=== PATIENT | female | born 1965 | race Hispanic/Latino ===

== ENCOUNTER 2019-01-19 22:04 | Emergency (ER) | payer OTHER ==
--- OUTSIDE RECORDS SUMMARY | 2019-01-19 22:11 | XMS REPORT | Continuity of Care Document ---
:1965 Author Organization Interface Problems Problem Status Onset Classification Date Comments Source Date Reported G89.4 Active 09/24/20 [facility] LBP/LT LEG/RA Active 06/27/20 S[facility] 18 [facility] Other spondylosis 12/08/19 03/12/2018 [facility] with 18 [employer] radiculopathy, cervical region CERVICAL SPINE Active 08/09/20 STENOSIS 17 [facility] ISCHEMIC STROKE Active 08/07/20 [facility] Spinal stenosis, 03/12/2018 [facility] cervical region [employer] Other specified 03/12/2018 [facility] postprocedural [employer] states Osteophyte, 03/12/2018 [facility] vertebrae [employer] Acute Resolved Problem 01/19/2019 [facility] hyperkalemia Neuro,[facility] OPID [employer], [facility] Acute UTI Resolved Problem 01/19/2019 [facility] OPID [employer], [facility] Group Back pain Active Problem 01/19/2019 [facility] Neuro,[facility] OPID [employer], [facility] Group Benign essential Active Problem 01/19/2019 [facility] HTN Neuro,[facility] OPID [employer], Medical Group Diabetes Resolved Problem 01/19/2019 [facility] Neuro,[facility] OPID [employer], Medical Group Impaired mobility Active Problem 01/19/2019 [facility] and ADLs Neuro,[facility] OPID [employer], Medical Group Hyperlipidemia Active Problem 01/19/2019 [facility] OPID [employer], Medical Group Hypertension Resolved Problem 01/19/2019 [facility] OPID [employer], [facility] Group Lower extremity Active Problem 01/19/2019 [facility] weakness Neuro,[facility] OPID [employer], [facility] Group Rheumatoid Active Problem 01/19/2019 [facility] arthritis Neuro,[facility] OPID [employer], Medical Group Simple obesity Active Problem 01/19/2019 [facility] OPID [employer], Medical Group Cervical stenosis Active Problem 01/19/2019 [facility] Neuro,[facility] OPID [employer], [facility] Group Accidental fall Active Problem 01/19/2019 [facility], [facility] Fluid retention Active Problem 01/19/2019 [facility], [facility] Chronic back pain Active Problem 01/19/2019 [facility], [facility] Chronic kidney Active Problem 01/19/2019 [facility] disease, stage 3 Neuro, Medical Group Chronic pain Resolved Problem 01/19/2019 [facility] Diabetic Active Problem 01/19/2019 [facility] retinopathy Neuro, Medical Group Left foot pain Active Problem 01/19/2019 [facility] Neuro, [facility] Left foot drop Active Problem 01/19/2019 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 Neck muscle spasm Active Problem 01/19/2019 [facility] Neuro, [facility] Group Peripheral Active Problem 01/19/2019 [facility] neuropathy Neuro, Medical Group Acute rhinitis Active Problem 01/19/2019 [facility] Type 2 diabetes Resolved Problem 01/19/2019 [facility] mellitus, [facility], controlled Medical Group Uncontrolled type Active Problem 01/19/2019 [facility] 2 diabetes with [facility], renal Medical manifestation Group Acute URI Active Problem 01/19/2019 Medical Group,[facility] er [facility] Rash Active Problem 01/19/2019 Medical Group,[facility] er Neuro Otitis media of Active Problem 01/19/2019 Medical right ear with Group,Misch rupture of er Neuro tympanic membrane Tinea pedis Active Problem 01/19/2019 Medical Group,Misch er Neuro ILLNESS, Active UNSPECIFIED [facility] STENOSIS OF Active UNSPECIFIED [facility] 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 Medication Details Route Status Patient Ordering Order Source Instructions Provider Date gabapentin 400 MG 400 mg=1 cap, Active 01/14/ Medical Oral Capsule PO, TID, # 120 2018 Group cap, 3 Refill(s), Pharmacy: [facility] [id number] DULoxetine 60 mg 60 mg, PO, Active 01/14[facility] Medical oral delayed Daily, # 90 2018 Group release capsule tab, 1 Refill(s), Pharmacy: [facility] [id number] pioglitazone 30 30 mg=1 tab, Active Medical mg oral tablet PO, Daily, # 90 2019 Group tab, 1 Refill(s), Pharmacy: [facility] 71069 Metformin 1,000 mg=2 tab, Active Medical hydrochloride 500 PO, BID, # 360 2019 Group MG Oral Tablet tab, 1 Refill(s), [id number] lisinopril 5 mg 5 mg, PO, Active Medical oral tablet Daily, # 90 2019 Group tab, 1 Refill(s), [facility] [id number] 3 ML Insulin 20 unit, SUB-Q, Active Medical Glargine 100 BID, # 5 2019 Group UNT/ML Prefilled pen(s), 3 Syringe [Lantus] Refill(s), [facility] [address] atorvastatin 40 40 mg=1 tab, Active Medical mg oral tablet PO, Bedtime, # 2019 Group 90 tab, 1 Refill(s), Pharmacy: [facility] [id number] amoxicillin 875 875 mg=1 tab, Active Medical mg oral tablet PO, BID, X 10 2019 Group day, # 20 tab, 0 Refill(s), [facility] Brompheniramine 5 mL, PO, TID, Active Medical Maleate 0.4 MG/ML PRN cough, X 8 2019 Group / day, # 120 mL, Dextromethorphan 0 Refill(s), Hydrobromide 2 Pharmacy: MG/ML / [facility] [id number] Hydrochloride 6 MG/ML Oral Solution [Bromfed DM] amoxicillin 875 875 mg=1 tab, Inactive Medical mg oral tablet PO, BID, X 10 2019 Group day, # 20 tab, 0 Refill(s) Cane 1 ea, MISC, Active Medical Daily, 4 PRONG 2019 Group CANE, # 1 ea, 0 Refill(s) Nystatin 100 1 appl, TOP, Active Medical UNT/MG Topical TID, X 7 day, # 2019 Group Powder 60 gm, 0 Refill(s), Pharmacy: [facility] [id number] Triamcinolone 1 appl, TOP, Active Medical Acetonide 1 MG/ML TID, PRN For 2019 Group Topical Cream rash, X 14 day, # 30 gm, 1 Refill(s), Pharmacy: [facility] 775[address] atorvastatin 40 40 mg=1 tab, Active Medical mg oral tablet PO, Bedtime, # 2019 Group 90 tab, 1 Refill(s), [facility] [address] predniSONE 5 mg 5 mg=1 tab, PO, Active Medical oral tablet Daily, Give 2019 Group with food., # 30 tab, 0 Refill(s), other Brompheniramine 5 mL, PO, TID, Active Medical Maleate 0.4 MG/ML PRN cough, X 8 2019 Group / day, # 120 mL, Dextromethorphan 1 Refill(s), Hydrobromide 2 Pharmacy: [facility]/ML / [facility] [id number] Hydrochloride 6 MG/ML Oral Solution [Bromfed DM] 3 ML Insulin 20 unit, SUB-Q, No Longer Medical Glargine 100 BID, # 5 Active 2018 Group UNT/ML Prefilled pen(s), 3 Syringe [Lantus] Refill(s), [facility] [id number] DULoxetine 60 mg 60 mg, PO, No Longer Medical oral delayed Daily, # 30 Active 2018 Group release capsule tab, 3 Refill(s), [facility] [id number] celecoxib 100 MG 100 mg=1 cap, Active Medical Oral Capsule PO, BID, # 60 2018 Group [Celebrex] cap, 0 Refill(s), [facility] [address] Metformin 500 mg, PO, No Longer Medical hydrochloride 500 BID, # 180 tab, Active 2018 Group MG Oral Tablet 1 Refill(s), [facility] [address] pioglitazone 15 15 mg, PO, No Longer Medical mg oral tablet Daily, # 90 Active 2018 Group tab, 1 Refill(s), [facility] [id number] lisinopril 5 mg 5 mg, PO, No Longer Medical oral tablet Daily, # 90 Active 2018 Group tab, 1 Refill(s), Pharmacy: [facility] [id number] Ketorolac 60 mg, Route: Inactive Medical IM, ONCE, 2018 Group Dosing Weight 81.364, kg, Start date: 07/02/18 7:45:00 CDT, Stop date: 07/02/18 7:45:00 CDT 3 ML Insulin 20 unit, SUB-Q, No Longer Medical Glargine 100 BID, # 5 Active 2018 Group UNT/ML Prefilled pen(s), 0 Syringe [Lantus] Refill(s), other tizanidine 4 mg 4 mg=1 cap, PO, Inactive 06/17/ Medical oral capsule Q8H, PRN for 2018 Group muscle spasms, # 90 cap, 0 Refill(s) 3 ML Insulin 20 unit, SUB-Q, Inactive Medical Glargine 100 0 Refill(s) 2018 Group UNT/ML Prefilled Syringe [Lantus] gabapentin 400 MG 400 mg=1 cap, Active 05/30/ [facility] Oral Capsule PO, TID, # 90 2018 Neuro cap, 4 Refill(s), Pharmacy: [facility] [id number] tramadol 100 mg 100 mg=1 tab, Active 05/30/ [facility] oral tablet, PO, Daily, # 30 2018 Neuro extended release tab, 4 Refill(s) tizanidine 4 mg 4 mg=1 tab, PO, Active 04/25/ [facility] oral tablet Q8H, # 50 tab, 2018 Neuro 0 Refill(s), Pharmacy: [facility] [id number] Methocarbamol 500 500 mg=1 tab, No Longer 04/24/ [facility] MG Oral Tablet PO, Q8H, PRN Active 2018 Neuro [Robaxin] Spasms, # 40 tab, 0 Refill(s), Pharmacy: [facility] [id number] Cyclobenzaprine 10 mg=1 tab, Active 10/17/ [facility] hydrochloride 10 PO, TID, PRN 2017 [facility] MG Oral Tablet for spasm, X 21 [Flexeril] day, # 63 tab, 0 Refill(s), Pharmacy: [facility] [id number] tramadol 50 mg=1 tab, Active hydrochloride 50 PO, Q8H, PRN 2017 [facility] MG Oral Tablet Pain Score 4-6, # 24 tab, 0 Refill(s) Ciprofloxacin 500 500 mg=1 tab, Active MG Oral Tablet PO, Q12H, X 7 2016 [facility] [Cipro] day, # 14 tab, 0 Refill(s), Pharmacy: [facility] sodium chloride 1,000 mL, Rate: No Longer 0.9% 1000 ml INJ 100 ml/hr, Active 2016 [facility] 1,000 mL Infuse over: 10 hr, Route: IV, Dosing Weight 80.9 kg, Total Volume: 1,000, Start date: 08/20/17 14:13:00 CDT, Duration: 30 day, Stop date: 09/19/17 14:12:00 [employer] Cipro 400 mg, 200 mL, No Longer Route: IVPB, Active 2016 [facility] Drug form: INJ, [id number], Dosing Weight 80.9, kg, Start date: 08/20/17 10:56:00 CDT, Duration: 5 day, Stop date: 08/24/17 22:56:00 CDT, ABX Indication: Urinary Tract InfectionNotes: Do not refrigerate Rocephin + sodium 1 gm, Route: No Longer chloride 0.9% INJ IVPB, [id number], Active 2016 [facility] 100 mL Dosing Weight 80.9, kg, Start date: 08/18/17 14:00:00 CDT, Duration: 5 day, Stop date: 08/22/17 14:00:00 CDT, ABX Indication: Urinary Tract InfectionNotes: (Same As: Rocephin). Use with 100 mL NS and infuse over 30 min MEDICATION WASTE Product Size: 1000 mg Product Wasted: ___ mg Rocephin 1 gm, Route: Inactive IVPB, [id number], 2016 [facility] Dosing Weight 80.9, kg, Start date: 08/18/17 11:02:00 CDT, Duration: 5 day, Stop date: 08/22/17 13:00:00 CDT, ABX Indication: Urinary Tract InfectionNotes: (Same As: Rocephin). Use with 100 mL NS and infuse over 30 min MEDICATION WASTE Product Size: 1000 mg Product Wasted: ___ mg Zofran 4 mg, 2 mL, No Longer Route: IVP, Active 2016 [facility] Drug form: INJ, Q8H, Dosing Weight 80.9, kg, PRN Nausea, Start date: 08/17/17 11:21:00 CDT, Duration: 30 day, Stop date: 09/16/17 11:20:00 CSTNotes: (Same as: Zofran) MEDICATION WASTE Product Size: 4 mg Product Wasted: ___ mg senna 8.6 mg oral 8.6 mg, 1 tab, No Longer tablet Route: PO, Drug Active 2016 [facility] Form: TAB, Dosing Weight 80.9, kg, BID, Start date: 08/16/17 17:00:00 CDT, Duration: 30 day, Stop date: 09/15/17 9:00:00 CSTNotes: (Same as: Senokot) Miralax 17 gm, 1 pkt, No Longer Route: PO, Drug Active 2016 [facility] form: PWDR, Daily, Dosing Weight 80.9, kg, Start date: 08/16/17 13:05:00 CDT, Duration: 30 day, Stop date: 09/15/17 9:00:00 CSTNotes: Dissolve in 8 oz of water or juice. (Same as: Miralax) aspirin 81 mg 81 mg, 1 tab, No Longer tablet, enteric Route: PO, Drug Active 2016 [facility] coated form: ECTAB, Daily, Dosing Weight 80.9, kg, Priority: NOW, Start date: 08/16/17 10:53:00 CDT, Duration: 30 day, Stop date: 09/15/17 9:00:00 CSTNotes: Do not crush or chew. (Same As: Ecotrin) Celebrex 100 mg, 1 cap, No Longer Route: PO, Drug Active 2016 [facility] form: CAP, Q12H, Dosing Weight 80.9, kg, Start date: 08/15/17 11:00:00 CDT, Duration: 7 day, Stop date: 08/22/17 9:00:00 CDTNotes: NSAID. Please check indication. Not for seizure. (Same As: CeleBREX ) senna 8.6 mg oral 8.6 mg, 1 tab, No Longer tablet Route: PO, Drug Active 2016 [facility] Form: TAB, Dosing Weight 80.9, kg, Daily, Start date: 08/15/17 9:00:00 CDT, Duration: 30 day, Stop date: 09/13/17 9:00:00 CSTNotes: (Same as: Senokot) Docusate Sodium 100 mg, 1 cap, No Longer 100 MG Oral Route: PO, Drug Active 2016 [facility] Capsule form: CAP, BID, Dosing Weight 80.9, kg, Start date: 08/14/17 17:00:00 CDT, Duration: 30 day, Stop date: 09/13/17 9:00:00 CSTNotes: (Same as: Colace) (Do Not Crush) Tramadol 100 mg, 2 tab, No Longer Route: PO, Drug Active 2016 [facility] form: TAB, Q6H, Dosing Weight 80.9, kg, Start date: 08/14/17 0:00:00 CDT, Stop date: 09/12/17 18:00:00 CSTNotes: Not to exceed 400mg/day. (Same As: Ultram) Robaxin 1,000 mg, 2 No Longer tab, Route: PO, Active 2016 [facility] Drug form: TAB, Q6H, Dosing Weight 80.9, kg, Start date: 08/14/17 0:00:00 CDT, Stop date: 09/12/17 18:00:00 CSTNotes: (Same as:Robaxin) Cefazolin 2 gm, 100 mL, Inactive Route: IVPB, 2016 [facility] Drug form: INJ, Q8H-01, Dosing Weight 80.9, kg, Start date: 08/14/17 0:00:00 CDT, Duration: 1 doses or times, Stop date: 08/14/17 0:00:00 CDT, ABX Indication: Surgical ProphylaxisNote s: Same as: Ancef Fentanyl 50 microgram, 1 No Longer mL, Route: IV, Active 2016 [facility] Drug form: INJ, Q15Min, Dosing Weight 80.9, kg, PRN Pain Score 7-10, Start date: 08/13/17 21:02:00 CDT, Duration: 2 doses or times, Stop date: Limited # of timesNotes: (Same as: Sublimaze) Preservative free. Albuterol 0.83 2.49 mg, 3 mL, No Longer MG/ML Inhalant Route: NEB, Active 2016 [facility] Solution Drug form: SOLN, PRN, Dosing Weight 80.9, kg, PRN Respiratory Protocol, Start date: 08/13/17 21:02:00 CDT, Duration: 30 day, Stop date: 09/12/17 20:01:00 CSTNotes: SEE RT DOCUMENTATION (Same as: Proventil) Promethazine 6.25 mg, Route: Inactive IVPB, ONCE, 2016 [facility] Dosing Weight 80.9, kg, PRN Nausea & Vomiting, Start date: 08/13/17 21:02:00 CDT Naloxone 0.1 mg, 0.25 No Longer mL, Route: Active 2016 [facility] SUB-Q, Drug form: INJ, Q6H, Dosing Weight 80.9, kg, PRN Itching, Start date: 08/13/17 21:02:00 CDT, Duration: 30 day, Stop date: 09/12/17 21:01:00 CSTNotes: Same as Narcan Ondansetron 4 mg, 2 mL, No Longer Route: IVP, Active 2016 [facility] Drug form: INJ, ONCE, Dosing Weight 80.9, kg, PRN Nausea & Vomiting, Start date: 08/13/17 21:02:00 CDTNotes: (Same as: Zofran) MEDICATION WASTE Product Size: 4 mg Product Wasted: ___ mg Meperidine 12.5 mg, 0.25 No Longer mL, Route: IVP, Active 2016 [facility] Drug form: INJ, Q30Min, Dosing Weight 80.9, kg, PRN Other -See Comment, For shivering, Start date: 08/13/17 21:02:00 CDT, Duration: 2 doses or times, Stop date: Limited # of timesNotes: (Same As: Demerol) Diphenhydramine 12.5 mg, 0.25 No Longer mL, Route: IVP, 2016 [facility] Drug form: INJ, Q6H, Dosing Weight 80.9, kg, PRN Itching, Start date: 08/13/17 21:02:00 CDT, Duration: 30 day, Stop date: 09/12/17 21:01:00 CSTNotes: (Same as: Benadryl) Glycopyrrolate 0.2 mg, 1 mL, No Longer Route: IVP, Active 2016 [facility] Drug form: INJ, Q5Min, Dosing Weight 80.9, kg, PRN Bradycardia, Start date: 08/13/17 21:02:00 CDT, Duration: 3 doses or times, Stop date: Limited # of timesNotes: (Same as: Nikolai) Flumazenil 0.2 mg, 2 mL, No Longer Route: IVP, 2016 [facility] Drug form: INJ, PRN, Dosing Weight 80.9, kg, PRN Benzodiazepine Reversal, Initial dose, Start date: 08/13/17 21:02:00 CDT, Duration: 30 day, Stop date: 09/12/17 20:01:00 CSTNotes: (Same as: Romazicon) Ephedrine 5 mg, 1 mL, No Longer Route: IVP, 2016 [facility] Drug form: INJ, Q5Min, Dosing Weight 80.9, kg, PRN Low Blood Pressure, Start date: 08/13/17 21:02:00 CDT, Duration: 30 day, Stop date: 09/12/17 20:01:00 CSTNotes: final concentration 5 mg/mL Labetalol 10 mg, 2 mL, No Longer Route: IVP, Active 2016 [facility] Drug form: INJ, Q5Min, Dosing Weight 80.9, kg, PRN Elevated BP, Start date: 08/13/17 21:02:00 CDT, Duration: 5 doses or times, Stop date: Limited # of timesNotes: (Same as: Normodyne, Trandate) Push over 2 minutes Give bolus over 2-3 minutes. Hydralazine 10 mg, 0.5 mL, No Longer Route: IVP, Active 2016 [facility] Drug form: INJ, Q20Min, Dosing Weight 80.9, kg, PRN Elevated BP, Start date: 08/13/17 21:02:00 CDT, Duration: 2 doses or times, Stop date: Limited # of timesNotes: (Same as: Apresoline) Push over 5 minutes Ketorolac 30 mg, 1 mL, No Longer Route: IVP, Active 2016 [facility] Drug form: INJ, ONCE, Dosing Weight 80.9, kg, Start date: 08/13/17 21:02:00 CDT, Duration: 1 doses or times, Stop date: 08/13/17 21:02:00 CDTNotes: (Same as:Toradol) IV bolus must be given >15 seconds. Give IM administration slowly and deeply into the muscle. Not for use > 4 days MEDICATION WASTE Product Size: 30 mg Product Wasted: ___ mg Acetaminophen 1,000 mg, Inactive Route: IVPB, 2016 [facility] Drug form: INJ, ONCE, Dosing Weight 80.9, kg, PRN Pain Score 1-3, Start date: 08/13/17 21:02:00 CDT, Duration: 1 doses or times, Stop date: Limited # of times Hydromorphone 0.5 mg, 0.5 mL, No Longer Route: IVP, Active 2016 [facility] Drug form: INJ, Q5Min, Dosing Weight 80.9, kg, PRN Pain Score 7-10, Start date: 08/13/17 21:02:00 CDT, Duration: 4 doses or times, Stop date: Limited # of times neostigmine Route: IV, Drug Inactive (ANES) form: INJ, 2016 [facility] ONCE, Stop date: 08/13/17 20:07:00 CDT glycopyrrolate Route: IV, Drug Inactive (ANES) form: INJ, 2016 [facility] ONCE, Stop date: 08/13/17 20:07:00 CDT ketOROLAC (ANES) IV, ONCE Inactive 2016 [facility] ondansetron Route: IV, Drug Inactive (ANES) form: INJ, 2016 [facility] ONCE, Stop date: 08/13/17 19:26:00 CDT dexamethasone Route: IV, Drug Inactive 08/13/ MH (ANES) form: INJ, 2016 [facility] , Stop date: 08/13/17 18:25:00 CDT rocuronium (ANES) Route: IV, Drug Inactive 08/13/ MH form: [id number], Stop date: 08/13/17 18:20:00 CDT ePHEDrine (ANES) Route: IV, Drug Inactive 08/13/ MH form: INJ, 2016, Stop date: 08/13/17 18:06:00 CDT propofol (ANES) Route: IV, Drug Inactive 08/13/ MH form: INJ, 2016, Stop date: 08/13/17 18:00:00 CDT phenylephrine Route: IV, Drug Inactive 08/13/ MH (ANES) form: INJ, 2016 [facility] , Stop date: 08/13/17 18:00:00 CDT acetaminophen Route: IV, Drug Inactive 08/13/ MH (ANES) (ANES) form: [id number] [facility] Start date: 08/13/17 17:53:00 CDT, Stop date: 08/13/17 18:53:00 CDT phenylephrine Route: IV, Drug Inactive 08/13/ MH (ANES) (ANES) form: 2016 [facility] Start date: 08/13/17 17:44:00 CDT, Stop date: 08/13/17 18:44:00 CDT ceFAZolin (ANES) Route: IV, Drug Inactive 08/13/ MH form: INJ, 2016, Stop date: 08/13/17 17:40:00 CDT fentaNYL (ANES) Route: IV, Drug Inactive 08/13/ MH form: [id number] [facility] , Stop date: 08/13/17 17:25:00 CDT midazolam (ANES) Route: IV, Drug Inactive 08/13/ MH form: SOLN, 2016, Stop date: 08/13/17 17:25:00 CDT Isolyte S (PH Route: IV, Inactive MH 7.4) 1000 mL Total Volume: 2016 [facility] (ANES) 1,000, Start date: 08/13/17 16:50:00 CDT, Stop date: 08/13/17 17:50:00 CDT D5W 1,000 mL 1,000 mL, Rate: No Longer 75 ml/hr, Active 2016 [facility] Infuse over: 13.3 hr, Route: IV, Dosing Weight 80.9 kg, Total Volume: 1,000, Start date: 08/13/17 11:59:00 CDT, Duration: 30 day, Stop date: 09/12/17 11:58:00 [employer] Insulin regular 6 unit, 0.06 No Longer mL, Route: Active 2016 [facility] SUB-Q, Drug form: SOLN, TID-Before Meals, Dosing Weight 80.9, kg, Start date: 08/12/17 16:30:00 CDT, Duration: 30 day, Stop date: 09/11/17 11:30:00 CSTNotes: (Same as: Humulin R) Roll in palms of hands gently; Do not shake vigorously. "single patient use only" (Restricted to patients requiring a dose > 60 units) WASTE: F/P - Black; E - [employer] Trash Bin Stable for 28 days at room temperature Expires in days from D ate sodium chloride 1,000 mL, Rate: No Longer 0.9% 1000 ml INJ 75 ml/hr, Active 2016 [facility] 1,000 mL Infuse over: 13.3 hr, Route: IV, Dosing Weight 80.9 kg, Total Volume: 1,000, Start date: 08/12/17 13:48:00 CDT, Duration: 30 day, Stop date: 09/11/17 13:47:00 [employer] Lisinopril 5 mg, 1 tab, No Longer Route: PO, Drug Active 2016 [facility] form: TAB, Daily, Dosing Weight 80.9, kg, Start date: 08/12/17 9:00:00 CDT, Duration: 30 day, Stop date: 09/10/17 9:00:00 CSTNotes: (Same as: Prinivil, Zestril) Thyroxine 50 microgram, 1 No Longer tab, Route: PO, Active 2016 [facility] Drug form: TAB, Q630AM, Dosing Weight 80.9, kg, Start date: 08/12/17 6:30:00 CDT, Duration: 30 day, Stop date: 09/10/17 6:30:00 CSTNotes: Take 1 hour before or 2 hours after meal; Enteral feeds may interefere with the absorption of this medication.(Sukhjinder e as:Levothroid, Synthroid) gabapentin 300 MG 300 mg, 1 cap, No Longer Oral Capsule Route: PO, Drug Active 2016 [facility] form: CAP, TID, Dosing Weight 80.9, kg, Start date: 08/11/17 17:00:00 CDT, Duration: 30 day, Stop date: 09/10/17 13:00:00 CSTNotes: (Same as: Neurontin) Flomax 0.4 mg, 1 cap, No Longer Route: PO, Drug Active 2016 [facility] form: CAP, Daily, Dosing Weight 80.9, kg, Priority: NOW, Start date: 08/11/17 12:27:00 CDT, Duration: 30 day, Stop date: 09/10/17 9:00:00 CSTNotes: (Same As: Flomax) "Do Not Crush" heparin sodium, 5,000 unit, 1 No Longer porcine 2500 mL, Route: Active 2016 [facility] UNT/ML Injectable SUB-Q, Drug Solution form: INJ, Q12H, Dosing Weight 80.9, kg, Start date: 08/10/17 21:00:00 CDT, Duration: 30 day, Stop date: 09/09/17 9:00:00 CSTNotes: porcine heparin Kayexalate 15 gm, 60 mL, Inactive Route: PO, Drug 2016 [facility] form: SUSP, ONCE, Dosing Weight 80.9, kg, Priority: NOW, Start date: 08/10/17 12:03:00 CDT, Stop date: 08/10/17 12:03:00 CDTNotes: (sodium polystyrene sulfonate 15 gm/60 ml WILLIE) Shake well before use. (Same as: Kayexalate, SPS) duloxetine 60 mg, 1 cap, No Longer Route: PO, Drug Active 2016 [facility] form: DRC, Daily, Dosing Weight 80.9, kg, Start date: 08/09/17 9:00:00 CDT, Duration: 30 day, Stop date: 09/07/17 9:00:00 CSTNotes: (Same as: Cymbalta) (Do Not Crush) gabapentin 300 mg, 1 cap, No Longer Route: PO, Drug Active 2016 [facility] form: CAP, Daily, Dosing Weight 80.9, kg, Start date: 08/09/17 9:00:00 CDT, Duration: 30 day, Stop date: 09/07/17 9:00:00 CSTNotes: (Same as: Neurontin) Levemir 25 unit, Route: No Longer SUB-Q, QAM Active 2016 [facility] (Insulin), Dosing Weight 80.9, kg, Start date: 08/09/17 7:30:00 CDT, Duration: 30 day, Stop date: 09/07/17 7:30:00 [employer] insulin glargine 28 unit, 0.28 No Longer mL, Route: Active 2016 [facility] SUB-Q, Drug form: INJ, QAM (Insulin), Start date: 08/09/17 7:30:00 CDT, Stop date: 09/07/17 7:30:00 CSTNotes: Same as Lantus Solostar PEN Do not hold insulin without contacting prescriber "single patient use only" WASTE: F/P - Black; E - [employer] Trash Bin Stable for 28 days at room temperature. Expires in days from D ate gabapentin 300 MG 300 mg, 1 cap, No Longer Oral Capsule Route: PO, Drug Active 2016 [facility] form: CAP, Q8H, Dosing Weight 80.9, kg, (CrCl > 60 ml/min), Start date: 08/09/17 0:00:00 CDT, Duration: 30 day, Stop date: 09/07/17 16:00:00 CSTNotes: (Same as: Neurontin) gabapentin 300 MG 300 mg=1 cap, Active Oral Capsule PO, TID, # 90 2016 [facility] cap, 0 Refill(s) levothyroxine 50 50 microgram=1 Active mcg (0.05 mg) tab, PO, Daily, 2016 [facility] oral tablet # 30 tab, 0 Refill(s) Metformin 500 mg, PO, Active BID, 0 2016 [facility] Refill(s) pentoxifylline 400 mg=1 tab, Active 400 mg oral PO, BID, 0 2016 [facility] tablet, extended Refill(s) release aspirin 81 mg 81 mg=1 tab, No Longer tablet, enteric PO, Daily, # 90 Active 2016 [facility] coated tab, 3 Refill(s) insulin glargine 24 unit, 0.24 No Longer 08/09/ mL, Route: Active 2016 [facility] SUB-Q, Drug form: INJ, Bedtime, Start date: 08/08/17 22:08:00 CDT, Stop date: 09/07/17 21:00:00 CSTNotes: Same as Lantus Solostar PEN Do not hold insulin without contacting prescriber "single patient use only" WASTE: F/P - Black; E - Municipal Trash Bin Stable for 28 days at room temperature. Expires in days from D ate Levemir 20 unit, Route: Inactive SUB-Q, Bedtime, 2016 [facility] Dosing Weight 80.9, kg, Priority: STAT, Start date: 08/08/17 21:57:00 CDT, Duration: 30 day, Stop date: 09/07/17 21:00:00 [employer] atorvastatin 80 mg, 4 tab, No Longer Route: PO, Drug Active 2016 [facility] form: TAB, Bedtime, kg, Start date: 08/08/17 21:00:00 CDT, Duration: 30 day, Stop date: 09/06/17 21:00:00 CSTNotes: (Same As: Lipitor) Insulin Lispro 4 unit, 0.04 No Longer mL, Route: Active 2016 [facility] SUB-Q, Drug form: SOLN, Bedtime, Dosing Weight 80.9, kg, PRN Blood Glucose Results, Start date: 08/08/17 20:01:00 CDT, Duration: 30 day, Stop date: 09/07/17 20:00:00 CSTNotes: Roll in palms of hands gently; Do not shake `vigorously. (Same as: Humalog ) "Single Patient Use Only " WASTE: F/P - Black; E - [employer] Trash Bin Stable for 28 days at room temperature. Expires in days from D ate Glucagon 1 mg, Route: No Longer IM, Drug form: Active 2017 [facility] PDR/INJ, PRN, Dosing Weight 80.9, kg, PRN Blood Glucose Results, Start date: 08/08/17 20:01:00 CDT, Duration: 30 day, Stop date: 09/07/17 19:00:00 [employer] Dextrose 50% 12.5 gm, 25 mL, No Longer Syringe Route: IVP, Active 2016 [facility] Drug Form: INJ, Dosing Weight 80.9, kg, PRN, PRN Blood Glucose Results, Start date: 08/08/17 20:01:00 CDT, Duration: 30 day, Stop date: 09/07/17 19:00:00 [employer] Acetaminophen 325 1 tab, Route: No Longer MG / Hydrocodone PO, Drug Form: Active 2016 [facility] Bitartrate 10 MG TAB, Dosing Oral Tablet Weight 80.9, [[place] 10/325] kg, Q4H, PRN Pain Score 4-6, Start date: 08/08/17 14:39:00 CDT, Duration: 30 day, Stop date: 09/07/17 14:38:00 CSTNotes: Do not exceed 4gm/day of acetaminophen. (Same as: [place] 325/10) Dilaudid 0.5 mg, 0.5 mL, No Longer Route: IVP, Active 2016 [facility] Drug form: INJ, Q4H, Dosing Weight 80.9, kg, PRN Pain Score 7-10, Start date: 08/08/17 14:39:00 CDT, Duration: 30 day, Stop date: 09/07/17 14:38:00 [employer] Omnipaque 350 100 mL, Route: Inactive injectable IVP, Drug Form: 2017 [facility] solution SOLN, Dosing Weight 80.9, kg, ONCALL, For CTA exam with GFR > 45 mL/min, STAT, Start date: 08/08/17 13:10:00 CDT, Duration: 1 doses or timesNotes: (same as:Omnipaque 350). WASTE: F/P - Black; E - [employer] Trash Bin Lovenox 30 mg, 0.3 mL, No Longer Route: SUB-Q, Active 2016 [facility] Drug form: INJ, [id number], Dosing Weight 80.9, kg, Start date: 08/08/17 12:00:00 CDT, Duration: 30 day, Stop date: 09/07/17 0:00:00 CSTNotes: (Same as: Lovenox) sodium chloride 1,000 mL, Rate: No Longer 0.9% 1000 ml INJ 125 ml/hr, Active 2016 [facility] 1,000 mL Infuse over: 8 hr, Route: IV, Dosing Weight 80.9 kg, Total Volume: 1,000, Start date: 08/08/17 9:39:00 CDT, Duration: 30 day, Stop date: 09/07/17 9:38:00 [employer] Saline Flush 0.9% 10 ml, Route: No Longer IVP, Drug Form: Active 2016 [facility] INJ, kg, Q12H, Start date: 08/08/17 9:00:00 CDT, Duration: 30 day, Stop date: 09/06/17 21:00:00 CSTNotes: (Same as: BD Posiflush) Sodium Chloride 1,000 mL, 1,000 Inactive 0.9% (Bolus) IV ml/hr, Infuse 2016 [facility] Over: 1 hr, Route: IV, 1,000, Drug form: INJ, ONCE, Priority: STAT, Dosing Weight 80.9 kg, Start date: 08/08/17 5:42:00 CDT, Duration: 1 doses or times, Stop date: 08/08/17 5:42:00 CDT Levemir 30, SUB-Q, QPM, Active 0 Refill(s) 2016 [facility] Aspirin 81 mg, PO, Active Daily, 0 2016 [facility] Refill(s) Metformin 500 mg, PO, No Longer Daily, 0 Active 2016 [facility] Refill(s) pioglitazone 15 mg, PO, Active Daily, 0 2016 [facility] Refill(s) Lisinopril 5 mg, PO, Active Daily, 0 2016 [facility] Refill(s) gabapentin 300 mg, PO, Inactive Daily, 0 2016 [facility] Refill(s) duloxetine 60 mg, PO, Active Daily, 0 2016 [facility] Refill(s) Sodium Chloride 1,000 mL, Inactive 0.9% (Bolus) IV Route: IV, 2016 [facility] ONCE, Dosing Weight 80.9 kg, Start date: 08/08/17 3:13:00 CDT, Stop date: 08/08/17 3:13:00 CDT aspirin 81 mg 81 mg, 1 tab, No Longer tablet, enteric Route: PO, Drug Active 2016 [facility] coated form: ECTAB, Daily, kg, Start date: 08/08/17 0:10:00 CDT, Duration: 30 day, Stop date: 09/06/17 9:00:00 CSTNotes: Do not crush or chew. (Same As: Ecotrin) Saline Flush 0.9% 10 ml, Route: No Longer IVP, Drug Form: Active 2016 [facility] INJ, kg, PRN, PRN Line Flush, Start date: 08/07/17 23:57:00 CDT, Duration: 30 day, Stop date: 09/06/17 22:56:00 CSTNotes: (Same as: BD Posiflush) Acetaminophen 650 mg, 2 tab, No Longer Route: PO, Drug Active 2016 [facility] form: TAB, Q4H, kg, PRN Pain 1-3/Temp > 99.5 F, Start date: 08/07/17 23:57:00 CDT, Duration: 30 day, Stop date: 09/06/17 23:56:00 CSTNotes: Do not exceed 4 gm/day. (Same as: Tylenol) Labetalol 10 mg, 2 mL, No Longer Route: IVP, Active 2016 [facility] Drug form: INJ, Q10Min, kg, PRN Hypertension, For SBP > 180 mmHg and/or DBP > 105 mmHg, Priority: Routine, Start date: 08/07/17 23:57:00 CDT, Duration: 30 day, Stop date: 09/06/17 22:56:00 CSTNotes: (Same as: Normodyne, Trandate) Push over 2 minutes Give bolus over 2-3 minutes. Allergies, Adverse Reactions, Alerts Substance Category Reaction Severity Reaction Status Date Comments Source type Reported Phenergan Assertion Drug [facility] Prevacid Assertion Drug [facility] Immunizations Immunization Date Given Site Status Last Updated Comments Source Results Order Name Results Value Reference Date Interpretation Comments Source Range Retroperit Retroperiton PROCEDURE: RENAL ULTRASOUND 08/12 - [facility] Complete - [facility] Complete US US INDICATION: Chronic kidney disease, stage III, moderate. Read by: Baldev Lezama MD Dictated Date/time: 08/12/18 15:16 Electronically Signed by: Baldev Lezama MD 08/12/18 15:19 FINAL REPORT COMPARISON: 08/08/2017 CTA abdomen TECHNIQUE: Sonographic evaluation of the kidneys and urinary bladder was performed. FINDINGS: Lobulated appearance of the kidneys as seen on the prior CT. KIDNEYS: The right kidney measures 10.3 cm in length. Normal contour and parenchymal echogenicity. There is no hydronephrosis, mass lesion, or perinephric fluid collection. The left kidney measures 11.1 cm in length. Normal contour and parenchymal echogenicity. There is no hydronephrosis, mass lesion, or perinephric fluid collection. BLADDER: Bladder is filled with fluid with bilateral ureteral jets appreciated. Mildly shadowing echogenic hidalgo of abdominal aorta may suggest calcified plaque as correlated with the prior CTA. Aortic bifurcation into the common iliac arteries is obscured. Intrahepatic inferior vena cava is partially visualized. IMPRESSION: Normal renal ultrasound. 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 Intravenous contrast: None. DLP 933 mGy-cm. This exam was performed according to our department dose optimization protocol, which includes automated exposure control, adjustment of the mA and/ or kV according to patient size and/or use of iterative reconstruction technique. COMPARISON: 08/08/2017 MRI, 08/16/2017 radiograph FINDINGS: Vertebrae: C3-C6 laminectomies have been performed, with the C3-C7 posterior element fixation hardware. Mild lucencies are present surrounding the bilateral C3 laminar screws, indicating loosening. C4 2.4 mm ossification of the posterior longitudinal ligament is present. C4-C5, C5-C6, C6-C7 posterior disc osteophyte complexes are again seen, measuring up to 2.7 mm. C6-C7 moderate central canal stenosis is present. C5-C6 and C6-C7 moderate to severe bilateral foraminal stenosis is present. C5-C7 anterior osteophytes are present. Other: Bilateral cervical carotid artery atherosclerotic calcifications are present. IMPRESSION: 1. Multilevel postsurgical changes as above. Lucency surrounding the bilateral C3 lamina anchoring screws. 2. Multilevel degenerative changes as above. CHEM PANEL eGFR 64 08/22 Result Comment: The eGFR is calculated using the CKD-EPI formula. In most young, healthy individuals the eGFR will be >90 mL/ min/1.73m2. The eGFR declines with age. An eGFR of 60-89 may be normal in mL/min/1. some populations, particularly the elderly, for whom the CKD-EPI formula has not been extensively validated. Use of the eGFR is not recommended in the following populations: [place] [id number] Individuals with unstable creatinine concentrations, including patients and those with serious co-morbid conditions. Patients with extremes in muscle mass or diet. The data above are obtained from the National Kidney Disease Education Program (NKDEP) which additionally recommends that when the eGFR is used in patients with extremes of body mass index for purposes of drug dosing, the eGFR should be multiplied by the estimated BMI. CHEM PANEL Sodium Lvl 136 meq/L 135 - 145 08/22 [facility] CHEM PANEL Creatinine 1.00 mg/dL 0.50 - 08/22 MH Lvl 1.40 /2016 [facility] CHEM PANEL Calcium Lvl 8.7 mg/dL 8.5 - 10.5 08/22 [facility] CHEM PANEL CO2 25 meq/L 24 - 32 08/22 [facility] CHEM PANEL Chloride Lvl 101 meq/L 95 - 109 08/22 [facility] CHEM PANEL Potassium 5.0 meq/L 3.5 - 5.1 08/22 Lvl [facility] CHEM PANEL BUN 19 mg/dL 7 - 22 08/22 [facility] CHEM PANEL Glucose Lvl 63 mg/dL 70 - 99 08/22 [facility] CHEM PANEL AGAP 15.0 meq/L 10.0 - 08/22 20.0 [facility] HEMATOLOGY Lymphocytes 2.4 K/CMM 1.0 - 5.5 08/22 MH # /2016 [facility] HEMATOLOGY Eosinophils 0.7 K/CMM 0.0 - 0.5 08/22 # [facility] HEMATOLOGY Monocytes # 1.6 K/CMM 0.0 - 0.8 08/22 [facility] HEMATOLOGY Monocytes 10.8 % 2.0 - 12.0 08/22 [facility] HEMATOLOGY Segs-Bands # 9.6 K/CMM 1.5 - 8.1 08/22 [facility] HEMATOLOGY Eosinophils 4.6 % 0.0 - 4.0 08/22 [facility] HEMATOLOGY Basophils 1.1 % 0.0 - 1.0 08/22 [facility] HEMATOLOGY Basophils # 0.2 K/CMM 0.0 - 0.2 08/22 [facility] HEMATOLOGY Lymphocytes 16.5 % 20.0 - 08/22 40.0 [facility] HEMATOLOGY Segs 67.0 % 45.0 - 08/22 MH 75.0 [facility] HEMATOLOGY Hct 26.5 % 36.0 - 08/22 48.0 [facility] HEMATOLOGY Hgb 8.5 g/dL 12.0 - 08/22 16.0 [facility] HEMATOLOGY RBC 2.96 M/CMM 4.20 - 08/22 MH 5.40 [facility] HEMATOLOGY MCV 89.8 fL 80.0 - 08/22 98.0 [facility] HEMATOLOGY Platelet 436 K/CMM 133 - 450 08/22 [facility] HEMATOLOGY MPV 9.3 fL 7.4 - 10.4 08/22 [facility] HEMATOLOGY RDW 13.5 % 11.5 - 08/22 14. [facility] HEMATOLOGY MCHC 32.0 g/dL 32.0 - 08/22 MH 36.0 [facility] HEMATOLOGY MCH 28.7 pg 27.0 - 08/22 MH 31.0 [facility] HEMATOLOGY WBC 14.4 K/CMM 3.7 - 10.4 08/22 [facility] CHEM PANEL eGFR 57 08/21 Result Comment: The eGFR is calculated using the CKD-EPI formula. In most young, healthy individuals the eGFR will be >90 mL/ min/1.73m2. The eGFR declines with age. An eGFR of 60-89 may be normal in mL/min/1.7 some populations, particularly the elderly, for whom the CKD-EPI formula has not been extensively validated. Use of the eGFR is not recommended in the following populations: [place] [id number] Individuals with unstable creatinine concentrations, including patients and those with serious co-morbid conditions. Patients with extremes in muscle mass or diet. The data above are obtained from the National Kidney Disease Education Program (NKDEP) which additionally recommends that when the eGFR is used in patients with extremes of body mass index for purposes of drug dosing, the eGFR should be multiplied by the estimated BMI. CHEM PANEL Glucose Lvl 79 mg/dL 70 - 99 08/21 [facility] CHEM PANEL BUN 22 mg/dL 7 - 22 08/21 [facility] CHEM PANEL Potassium 5.0 meq/L 3.5 - 5.1 08/21 MH Lvl [facility] CHEM PANEL Creatinine 1.10 mg/dL 0.50 - 08/21 MH Lvl 1.40 [facility] CHEM PANEL Sodium Lvl 131 meq/L 135 - 145 08/21 [facility] CHEM PANEL Chloride Lvl 98 meq/L 95 - 109 08/21 [facility] CHEM PANEL Calcium Lvl 8.4 mg/dL 8.5 - 10.5 08/21 [facility] CHEM PANEL AGAP 13.0 meq/L 10.0 - 08/21 MH 20.0 [facility] CHEM PANEL CO2 25 meq/L 24 - 32 08/21 [facility] HEMATOLOGY Platelet 360 K/CMM 133 - 450 08/21 [facility] HEMATOLOGY MPV 10.3 fL 7.4 - 10.4 08/21 [facility] HEMATOLOGY MCHC 32.9 g/dL 32.0 - 08/21 MH 36.0 [facility] HEMATOLOGY RDW 13.3 % 11.5 - 08/21 MH 14. [facility] HEMATOLOGY Hct 25.1 % 36.0 - 08/21 MH 48.0 [facility] HEMATOLOGY MCH 29.4 pg 27.0 - 08/21 MH 31.0 [facility] HEMATOLOGY MCV 89.6 fL 80.0 - 08/21 MH 98.0 [facility] HEMATOLOGY RBC 2.81 M/CMM 4.20 - 08/21 MH 5.40 /2016 [facility] HEMATOLOGY Hgb 8.3 g/dL 12.0 - 08/21 MH 16.0 [facility] HEMATOLOGY WBC 14.8 K/CMM 3.7 - 10.4 08/21 [facility] HEMATOLOGY Segs-Bands # 10.8 K/CMM 1.5 - 8.1 08/21 [facility] HEMATOLOGY Lymphocytes 1.8 K/CMM 1.0 - 5.5 08/21 MH # /2017 [facility] HEMATOLOGY Monocytes # 1.5 K/CMM 0.0 - 0.8 08/21 [facility] HEMATOLOGY Eosinophils 0.7 K/CMM 0.0 - 0.5 08/21 MH # [facility] HEMATOLOGY Eosinophils 4.9 % 0.0 - 4.0 08/21 [facility] HEMATOLOGY Monocytes 9.9 % 2.0 - 12.0 08/21 [facility] HEMATOLOGY Basophils 0.7 % 0.0 - 1.0 08/21 [facility] HEMATOLOGY RBC Morph Normal 08/21 [facility] (08/21/17 3:57 AM) HEMATOLOGY Segs 72.5 % 45.0 - 08/21 MH 75.0 [facility] HEMATOLOGY Plt Morph Normal 08/21 [facility] (08/21/17 3:57 AM) HEMATOLOGY Lymphocytes 12.0 % 20.0 - 08/21 40.0 [facility] HEMATOLOGY Basophils # 0.1 K/CMM 0.0 - 0.2 08/21 [facility] CHEM PANEL eGFR 52 08/20 Result Comment: The eGFR is calculated using the CKD-EPI formula. In most young, healthy individuals the eGFR will be >90 mL/ min/1.73m2. The eGFR declines with age. An eGFR of 60-89 may be normal in mL/min/1. some populations, particularly the elderly, for whom the CKD-EPI formula has not been extensively validated. Use of the eGFR is not recommended in the following populations: [facility] 3m2 Individuals with unstable creatinine concentrations, including patients and those with serious co-morbid conditions. Patients with extremes in muscle mass or diet. The data above are obtained from the National Kidney Disease Education Program (NKDEP) which additionally recommends that when the eGFR is used in patients with extremes of body mass index for purposes of drug dosing, the eGFR should be multiplied by the estimated BMI. CHEM PANEL Potassium 5.0 meq/L 3.5 - 5.1 08/20 [facility] Lvl /2016 [facility] CHEM PANEL Sodium Lvl 131 meq/L 135 - 145 08/20 [facility] CHEM PANEL CO2 26 meq/L 24 - 32 08/20 [facility] CHEM PANEL Calcium Lvl 8.5 mg/dL 8.5 - 10.5 08/20 [facility] CHEM PANEL Chloride Lvl 95 meq/L 95 - 109 08/20 [facility] CHEM PANEL Creatinine 1.20 mg/dL 0.50 - 08/20 MH Lvl 1.40 [facility] CHEM PANEL BUN 23 mg/dL 7 - 22 08/20 [facility] CHEM PANEL Glucose Lvl 132 mg/dL 70 - 99 08/20 [facility] CHEM PANEL AGAP 15.0 meq/L 10.0 - 08/20 20.0 [facility] HEMATOLOGY WBC 17.1 K/CMM 3.7 - 10.4 08/20 [facility] HEMATOLOGY Hgb 8.4 g/dL 12.0 - 08/20 16.0 [facility] HEMATOLOGY RBC 2.77 M/CMM 4.20 - 08/20 MH 5.40 [facility] HEMATOLOGY Hct 24.8 % 36.0 - 08/20 48.0 [facility] HEMATOLOGY MCV 89.4 fL 80.0 - 08/20 98.0 [facility] HEMATOLOGY MCH 30.3 pg 27.0 - 08/20 MH 31.0 [facility] MCHC 33.8 g/dL 32.0 - 08/20 36.0 [facility] HEMATOLOGY Platelet 354 K/CMM 133 - 450 08/20 [facility] HEMATOLOGY MPV 10.1 fL 7.4 - 10.4 08/20 [facility] HEMATOLOGY RDW 13.3 % 11.5 - 08/20 14. [facility] HEMATOLOGY Basophils # 0.1 K/CMM 0.0 - 0.2 08/20 [facility] Monocytes # 1.3 K/CMM 0.0 - 0.8 08/20 [facility] Eosinophils 0.6 K/CMM 0.0 - 0.5 08/20 [facility] HEMATOLOGY Segs-Bands # 13.0 K/CMM 1.5 - 8.1 08/20 [facility] HEMATOLOGY Eosinophils 3.7 % 0.0 - 4.0 08/20 [facility] HEMATOLOGY Lymphocytes 2.1 K/CMM 1.0 - 5.5 08/20 [facility] # /2017 [facility] HEMATOLOGY Basophils 0.3 % 0.0 - 1.0 08/20 [facility] HEMATOLOGY Monocytes 7.6 % 2.0 - 12.0 08/20 [facility] HEMATOLOGY Segs 76.1 % 45.0 - 08/20 75.0 [facility] HEMATOLOGY Lymphocytes 12.3 % 20.0 - 08/20 40.0 [facility] URINE AND UA null 0.1 - 1.0 08/18 STOOL Urobilinogen [facility] URINE AND UA Color Yellow 08/18 STOOL [facility] URINE AND UA RBC 1 /HPF 0 - 2 08/18 STOOL [facility] URINE AND UA Mucus Few /LPF None Seen 08/18 [facility] /LPF [facility] URINE AND UA Bacteria Occasional None Seen 08/18 [facility] /HPF /HPF [facility] URINE AND UA WBC 169 /HPF 0 - 5 08/18 STOOL [facility] URINE AND UA Blood Moderate Negative 08/18 [facility] *ABN* (08/18/17 6:02 AM) URINE AND UA Sq Epi Occasional Few /LPF 08/18 [facility]OOL /LPF [facility] URINE AND UA Nitrite Negative Negative 08/18 STOOL [facility] (08/18/17 6:02 AM) URINE AND UA Leuk Est Large Negative 08/18 [facility] *ABN* (08/18/17 6:02 AM) URINE AND UA Bili Negative Negative 08/18 STOOL [facility] *NA* (08/18/17 6:02 AM) URINE AND UA Turbidity Marked Clear 08/18 STOOL [facility] *ABN* (08/18/17 6:02 AM) URINE AND UA pH 5.0 5.0 - 8.0 08/18 STOOL [facility] URINE AND UA Protein 30 mg/dL Negative 08/18 STOOL mg/dL [facility] URINE AND UA Spec Grav 1.005 <=1.030 08/18 STOOL [facility] URINE AND UA Glucose Negative Negative 08/18 STOOL mg/dL mg/dL [facility] URINE AND UA Ketones Trace Negative 08/18 [facility] mg/dL mg/dL /2016 [facility] Spine Spine 4 VIEW CERVICAL SPINE 08/16 - cervical 2 cervical - [facility] or 3 view or 3 view DX DX HISTORY: Cervical pain. Read by: Jacek Lisa MD Dictated Date/time: 08/16/17 15:22 Electronically Signed by: Jacek Lisa MD 08/16/17 15:27 FINAL REPORT COMPARISON: No relevant priors available. Facet screws present C3-C2-C7 as well as posterior stabilization rods. Alignment of the cervical spine is normal there is narrowing of the C5-C6 and to lesser degree C6-C7 disc spaces. Prevertebral soft tissues normal. Vertebral body height normal and remainder of the disc spaces are maintained. Lung apices clear. Air densities are noted in the right neck. IMPRESSION: Postoperative changes of the cervical spine as noted above with associated degenerative disc changes. Air densities within the soft tissues of the neck as noted patient has had recent neck surgery this could explain this finding. END IMPRESSION SL: CL70-M BLOOD BANK Antibody Negative 08/13 RESULTS Scrn /2016 [facility] (08/13/17 5:56 AM) BLOOD BANK ABO/Rh A POS 08/13 RESULTS /2016 [facility] HEMATOLOGY PT 13.2 s 12.0 - 08/13 MH 14.7 [facility] HEMATOLOGY PTT 26.7 s 22.9 - 08/13 MH 35.8 /2016 [facility] HEMATOLOGY INR 0.98 0.85 - 08/13 MH 1. [facility] HEMATOLOGY PT 13.2 s 12.0 - 08/12 MH 14.7 /2016 [facility] HEMATOLOGY PTT 31.3 s 22.9 - 08/12 MH 35.8 /2017 [facility] HEMATOLOGY INR 0.98 0.85 - 08/12 MH 1. [facility] CHEM PANEL ALT 43 unit/L 0 - 65 08/10 [facility] CHEM PANEL Alk Phos 84 unit/L 39 - 136 08/10 /2016 [facility] CHEM PANEL Bili Total 0.5 mg/dL 0.2 - 1.3 08/10 [facility] CHEM PANEL AST 58 unit/L 0 - 37 08/10 [facility] CHEM PANEL Total 6.6 g/dL 6.4 - 8.4 08/10 [facility] CHEM PANEL Albumin Lvl 2.7 g/dL 3.5 - 5.0 08/10 [facility] CHEM PANEL Globulin 3.9 g/dL 2.7 - 4.2 08/10 [facility] CHEM PANEL B/C Ratio 25 6 - 25 08/10 [facility] CHEM PANEL A/G Ratio 0.7 0.7 - 1.6 08/10 [facility] HEMATOLOGY INR 0.95 0.85 - 08/10 MH 1.17 [facility] HEMATOLOGY PTT 26.4 s 22.9 - 08/10 MH 35.8 /2016 [facility] HEMATOLOGY PT 12.9 s 12.0 - 08/10 MH 14.7 [facility] SPECIAL Hgb A1C 6.8 % <=5.6 % 08/09 CHEMISTRY [facility] URINE AND UA null 0.1 - 1.0 08/09 STOOL Urobilinogen [facility] URINE AND UA Glucose 50 mg/dL 08/09 STOOL [facility] URINE AND UA WBC 1 /HPF 0 - 5 08/09 STOOL [facility] URINE AND UA RBC 2 /HPF 0 - 2 08/09 STOOL [facility] URINE AND UA Sq Epi Occasional Few /LPF 08/09 STOOL /LPF [facility] URINE AND UA Bacteria Few /HPF None Seen 08/09 STOOL /HPF [facility] URINE AND UA Color Ltyellow 08/09 STOOL [facility] URINE AND UA Mucus Few /LPF None Seen 08/09 STOOL /LPF [facility] URINE AND UA Leuk Est Negative Negative 08/09 STOOL [facility] (08/09/17 2:22 AM) URINE AND UA Bili Negative Negative 08/09 STOOL [facility] *NA* (08/09/17 2:22 AM) URINE AND UA Nitrite Negative Negative 08/09 STOOL [facility] (08/09/17 2:22 AM) URINE AND UA Blood Small Negative 08/09 STOOL [facility] *ABN* (08/09/17 2:22 AM) URINE AND UA Turbidity Clear Clear 08/09 STOOL [facility] (08/09/17 2:22 AM) URINE AND UA Ketones Negative Negative 08/09 [facility] mg/dL mg/dL [facility] URINE AND UA Spec Grav 1.019 <=1.030 08/09 STOOL [facility] URINE AND UA Protein 30 mg/dL Negative 08/09 [facility] mg/dL /2016 [facility] URINE AND UA pH 5.0 5.0 - 8.0 08/09 STOOL /2016 [facility] CARDIAC Troponin-I 0.03 ng/mL 0.00 - 08/08 ENZYMES 0.40 2017 [facility] CARDIAC CK MB Index 2.0 0.0 - 2.5 08/08 ENZYMES [facility] CARDIAC CK MB 2.4 ng/mL 0.5 - 3.6 08/08 ENZYMES /2016 [facility] CARDIAC Troponin-I 0.02 ng/mL 0.00 - 08/08 ENZYMES 0.40 [facility] CARDIAC Total CK 119 unit/L 12 - 191 08/08 ENZYMES [facility] Chest/Abd/ Chest/Abd/Pe CTA THORAX, ABDOMEN, PELVIS 08/08 Pelvis CTA lvis CTA /2016 - [facility] HISTORY: ; - rule out dissection, 95ml [id number] given, dlp 1023.8mGycm; bilateral lower extremity weakness Read by: Nathan Mccoy MD Dictated Date/time: 08/08/17 15:24 Electronically Signed by: Nathan Mccoy MD 08/08/17 15:33 FINAL REPORT TECHNIQUE: Thin collimation angiographic axial images of the chest and abdomen and pelvis from the base of the neck to below the hips with IV contrast. Coronal and sagittal reformatted images were utilized. 3-D reconstructions were obtained. COMPARISON: MRI entire spine dated 08/08/2017 CHEST: Thoracic aorta is normal. No thoracic aortic dissection, aneurysm, or atherosclerosis. Trace coronary calcification. Heart size normal. No pericardial effusion. No mediastinal mass, fluid collection, or adenopathy. Hypervascular nodule in the thyroid isthmus measures 2.0 cm. Lungs are sarah ar. No pleural effusion or pneumothorax. No acute osseous abnormality. ABDOMEN AND PELVIS: Mild/moderate calcified and soft atherosclerotic plaque of the abdominal aorta. No abdominal aortic dissection or aneurysm. No stenosis of the SMA, celiac axis, renal arteries. Bilateral iliac arterial vasculature demonstrates mild atherosclerotic calcification but no stenosis or dissection. The liver, spleen, pancreas, adrenal glands, and kidneys are unremarkable. Cholecystectomy is noted. Stomach and duodenum are normal. Normal urinary bladder. Probable hysterectomy. Normal small and larg e bowel. Appendix not visualized. No ascites, adenopathy, or pneumoperitoneum. No acute osseous abnormality. Postoperative changes in the lumbar spine. IMPRESSION: 1. No dissection of the thoracic or abdominal aorta. 2. Mild/moderate atherosclerosis of the abdominal aorta and iliac arteries without stenosis. 3. A 2 cm hypervascular thyroid nodule. Recommend nonemergent evaluation with thyroid ultrasound as per ACR criteria. 4. Cholecystectomy, probable hysterectomy, and postoperative lumbar spine. SL: [facility] CARDIAC CK MB Index 2.0 0.0 - 2.5 08/08 [facility] CARDIAC CK MB 2.8 ng/mL 0.5 - 3.6 08/08 [facility] CARDIAC Total CK 141 unit/L 12 - 191 08/08 [facility] CARDIAC Troponin-I 0.03 ng/mL 0.00 - 08/08 EN[facility] 0.40 /2017 [facility] Spine Spine entire MRI ENTIRE SPINE WITHOUT CONTRAST 08/08 - entire wo wo contrast - [facility] contrast MRI MRI HISTORY: Bilat LE weakness - Bilat LE weakness; Read by: Nathan Mccoy MD Dictated Date/time: 08/08/17 14:53 Electronically Signed by: Nathan Mccoy MD 08/08/17 15:14 FINAL REPORT COMPARISON: None available. TECHNIQUE: Multiplanar T1, T2, fluid-sensitive weighted MRI of the entire spine without contrast is performed on the 1.5 Yari magnet. CERVICAL: No fracture is seen. Vertebral body heights maintained. No bone marrow edema or aggressive osseous lesion. No discitis/osteomyelitis. Multilevel canal stenosis, greatest at C5/C6 where there is cord contusion or myelomalacia. C2/C3: No canal stenosis or neural foraminal narrowing. C3/C4: Mild broad-based posterior disc protrusion. No canal stenosis or neural foraminal narrowing. C4/C5: Moderate posterior central disc protrusion measuring 4-5 mm in depth. Mild ligament flavum thickening. Moderate to severe canal stenosis with deformity on the anterior spinal cord contour. No rig ht neural foraminal narrowing. Mild/moderate left neural foraminal narrowing. C5/C6: Bulky broad-based posterior spur and disc complex measuring 6 mm in depth with bilateral uncovertebral spurring. Severe canal stenosis with abnormal signal in the spinal cord compatible with cord contusion or myelomalacia. Severe right neural foraminal narrowing and moderate to severe left neural foraminal narrowing. C6/C7: Bulky broad-based posterior spur and disc complex measuring 5 mm in depth with bilateral uncovertebral spurring. Severe canal stenosis with deformity of the anterior spinal cord contour. Moderate to severe bilateral neural foraminal narrowing. C7/T1: No canal stenosis or neural foraminal narrowing. The visualized soft tissue structures of the neck are grossly normal. THORACIC: No fracture is seen. Vertebral body heights are maintained. No bone marrow edema or aggressive osseous lesion. No discitis/osteomyelitis. No significant disc degeneration the thoracic spine. No thoracic canal stenosis or neural foraminal narrowing. Thoracic spinal cord is normal in size, shape, and signal intensity. LUMBAR: No fracture is seen. Vertebral body heights are maintained. No bone marrow edema or aggressive osseous lesion. No discitis/osteomyelitis. Small benign hemangioma within the L3 vertebral body on the left. Changes of surgical posterior decompression at L5/S1. Right sided pedicle screws at L4, L5, and S1 with right-sided posterior spinal gurmeet. T12/L1: No canal stenosis or neural foraminal narrowing. L1/L2: No canal stenosis or neural foraminal narrowing. L2/L3: Mild diffuse disc bulge. Mild degenerative facet arthrosis. No canal stenosis or neural foraminal narrowing. L3/L4: Mild diffuse disc bulge. Moderate to severe hypertrophic facet arthrosis. Mild canal stenosis. L4/L5: Mild diffuse disc bulge. Moderate to severe hypertrophic facet arthrosis. No canal stenosis. Mild right neural foraminal narrowing. Moderate left neural foraminal narrowing. L5/S1: Changes of posterior surgical decompression. Moderate to severe bilateral hypertrophic facet arthrosis. No canal stenosis or neural foraminal narrowing. Visualized portion of the kidneys unremarkable. The visualized aorta is normal in caliber. IMPRESSION: 1. Severe canal stenosis at C5/C6 and C6/C7 and moderate to severe canal stenosis at C4/C5. 2. Abnormal signal in the spinal cord at C5/C6 compatible with cord contusion or myelomalacia. 3. Multilevel moderate to severe neural foraminal narrowing in the cervical spine. 4. No canal stenosis or neural foraminal narrowing in the thoracic spine. 5. Postoperative changes in the lower lumbar spine as described. 6. No high-grade canal stenosis or neural foraminal narrowing at the lumbar spine. Moderate left neural foraminal narrowing is noted at L4/L5. SL: AGINZEL-PC BACTERIAL MRSA by PCR Negative 08/08 - SEROLOGY [facility] (08/08/17 12:41 AM) CHEM PANEL Bili Total 0.6 mg/dL 0.2 - 1.3 08/08 [facility] CHEM PANEL Alk Phos 80 unit/L 39 - 136 08/08 [facility] CHEM PANEL AST 21 unit/L 0 - 37 08/08 [facility] CHEM PANEL Total 7.1 g/dL 6.4 - 8.4 08/08 Protein [facility] CHEM PANEL ALT 27 unit/L 0 - 65 08/08 [facility] CHEM PANEL Albumin Lvl 3.3 g/dL 3.5 - 5.0 08/08 [facility] CHEM PANEL A/G Ratio 0.9 0.7 - 1.6 08/08 [facility] CHEM PANEL B/C Ratio 26 6 - 25 08/08 [facility] CHEM PANEL Globulin 3.8 g/dL 2.7 - 4.2 08/08 [facility] CHEM PANEL Phosphorus 3.5 mg/dL 2.5 - 4.5 08/08 [facility] CHEM PANEL Magnesium 2.3 mg/dL 1.8 - 2.4 08/08 Lvl [facility] CHEM PANEL Bili Direct 0.1 mg/dL 0.0 - 0.3 08/08 [facility] IMMUNOLOGY RPR Non Reactive Non 08/08 Reactive /2016 [facility] (08/08/17 12:41 AM) IMMUNOLOGY Treponemal Reactive Non 08/08 Scr Reactive /2016 [facility] *ABN* (08/08/17 12:41 AM) IMMUNOLOGY T pallidum Reactive Non 08/08 Ab Reactive /2016 [facility] *ABN* (08/08/17 12:41 AM) LIPIDS CHD Risk 3.58 3.90 - 08/08 5.80 [facility] LIPIDS LDL 114 mg/dL <=99 mg/dL 08/08 (Calculated) [facility] LIPIDS VLDL 28 08/08 [facility] LIPIDS Chol 197 mg/dL <=199 08/08 mg/dL [facility] LIPIDS Trig 142 mg/dL <=149 08/08 mg/dL [facility] LIPIDS HDL 55 mg/dL >=61 mg/dL 08/08 [facility] PARATHYROI Ca Norm WB 1.10 1.05 - 08/08 D PROFILE mMol/L . [facility] PARATHYROI Ca Ion WB 1.14 1.05 - 08/08 D PROFILE mMol/L 1. [facility] SPECIAL Hgb A1C 6.7 % <=5.6 % 08/08 CHEMISTRY /2016 [facility] Vital Signs Vital Sign Value Date Comments Source BMI Calculated 36.92 01/14/2019 [facility] Weight 88.636 01/14/2019 [facility] Height 154.94 cm 01/14/2019 [facility] Temperature Oral (F) 98.6 F 01/14/2019 [facility] Heart Rate 85 01/14/2019 [facility] Systolic (mm Hg) 125 01/14/2019 [facility] Diastolic (mm Hg) 78 01/14/2019 [facility] BMI Calculated 35.6 11/28/2018 [facility] Weight 85.455 11/28/2018 [facility] Height 154.94 cm 11/28/2018 [facility] Temperature Oral (F) 97.7 F 11/28/2018 [facility] Heart Rate 87 11/28/2018 [facility] Systolic (mm Hg) 112 11/28/2018 [facility] Diastolic (mm Hg) 77 11/28/2018 [facility] BMI Calculated 33.89 07/02/2018 [facility] Weight 81.364 07/02/2018 [facility] Height 154.94 cm 07/02/2018 [facility] Systolic (mm Hg) 131 07/02/2018 [facility] Diastolic (mm Hg) 83 07/02/2018 [facility] Heart Rate 98 07/02/2018 [facility] Temperature Oral (F) 98.4 F 07/02/2018 [facility] Weight 82.273 06/17/2018 [facility] BMI Calculated 33.17 06/17/2018 [facility] Height 157.48 cm 06/17/2018 [facility] Systolic (mm Hg) 133 06/17/2018 [facility] Diastolic (mm Hg) 82 06/17/2018 [facility] Heart Rate 80 06/17/2018 [facility] Temperature Oral (F) 97.6 F 06/17/2018 [facility] BMI Calculated 30.2 05/30/2018 [facility] Weight 82.33 05/30/2018 [facility] Height 165.1 cm 05/30/2018 [facility] Systolic (mm Hg) 128 05/30/2018 [facility] Diastolic (mm Hg) 76 05/30/2018 [facility] Heart Rate 89 05/30/2018 [facility] BMI Calculated 32.84 04/24/2018 [facility] Weight 81.449 04/24/2018 [facility] Height 157.48 cm 04/24/2018 [facility] Temperature Oral (F) 97.9 F 04/24/2018 [facility] Heart Rate 94 04/24/2018 [facility] Systolic (mm Hg) 100 04/24/2018 [facility] Diastolic (mm Hg) 66 04/24/2018 [facility] BMI Calculated 30.8 10/17/2017 [facility] Weight 76.392 10/17/2017 [facility] Height 157.48 cm 10/17/2017 [facility] Temperature Oral (F) 97.5 F 10/17/2017 [facility] Heart Rate 99 10/17/2017 [facility] Systolic (mm Hg) 139 10/17/2017 [facility] Diastolic (mm Hg) 80 10/17/2017 [facility] BMI Calculated 31.57 09/19/2017 [facility] Weight 78.295 09/19/2017 [facility] Height 157.48 cm 09/19/2017 [facility] Heart Rate 103 09/19/2017 [facility] Temperature Oral (F) 98.2 F 09/19/2017 [facility] Systolic (mm Hg) 118 09/19/2017 [facility] Diastolic (mm Hg) 68 09/19/2017 [facility] Respitory Rate 18 08/22/2017 [facility] Temperature Oral (F) 97.5 F 08/22/2017 [facility] Heart Rate 82 08/22/2017 [facility] Systolic (mm Hg) 121 08/22/2017 [facility] Diastolic (mm Hg) 77 08/22/2017 [facility] Systolic (mm Hg) 137 08/22/2017 [facility] Diastolic (mm Hg) 72 08/22/2017 [facility] Heart Rate 71 08/22/2017 [facility] Respitory Rate 20 08/22/2017 [facility] Temperature Oral (F) 97.7 F 08/22/2017 [facility] Systolic (mm Hg) 143 08/22/2017 [facility] Diastolic (mm Hg) 81 08/22/2017 [facility] Respitory Rate 20 08/22/2017 [facility] Heart Rate 86 08/22/2017 [facility] Temperature Oral (F) 97.9 F 08/22/2017 [facility] BMI Calculated 32.62 08/08/2017 [facility] Weight 80.9 08/08/2017 [facility] Height 157.48 cm 08/08/2017 [facility] Encounters Location Location Encounter Encounter Reason Attending ADM DC Status Source Details Type Number For Provider Date Date Visit [id number] [facility] 08[facility]08 08/23 Jasen 3 [facility] Outpatient [id number] URBA[place] 09/03 [facility] 0 [facility] Outpatient [id number] [place] 09/19 [facility] 2 [facility] Outpatient [id number] 09/19 09/20 [facility] Outpatient [id number] URBANA 10/01 [facility] 1 [facility]en [facility] Phone [id number] 10/01 10/03 [facility] Message [facility] [place] [facility] Phone [id number] 10/01 10/03 [facility] Message [facility] e [employer] [facility] Ambulatory [id number] [place] 10/01 10/01 [facility] Pre-Reg 1 Neuro e [facility] Outpatient [id number] [place] 10/17 [facility] 3 [facility]patient [id number] [facility] 10/17 10/18 [facility] 3 [facility] [employer] [facility] Pre[facility]mit [id number] [facility] 11/09 11/09 Jasen 0 A[facility] ion MNA Phone [id number] 12/04 12/06 [facility] Message [facility] Outpt Diag [id number] Master 12/04 12/05 [facility] [employer] Outpatient [id number] JUANITO 12/05 [facility] 4 [facility] Ambulatory [id number] 12/05 12/05 [facility] Pre-Reg Neuro e [employer] MNA Phone [id number] 04/05 04/07 [facility] Message [facility] Outpatient [id number] [place] 04/24 [facility] 5 [facility] Outpatient [id number] 04/24 04/25 [facility] [employer] MNA Phone [id number] 04/30 05/02 [facility] Message [facility] e [employer] MNA Phone [id number] 05/03 05/05 [facility] Message Neuro e [facility] Phone [id number] 05/07 05/09 MH Primary [facility] MNA Phone [id number] 05/07 05/09 [facility] Message Neuro e [facility] Outpatient [id number] LD [place] [facility]/14 [facility] [id number] Kala 05/14 05/15 [facility] 6 An Neuro e [facility] MNA Phone [id number] 05/21 05/23 [facility] Message Neuro e [facility] MNA Phone [id number] 05/22 05/24 [facility] Message Neuro e [facility] Outpatient [id number] LD [place] 05/28 [facility] [id number] [place] 05/28 05/28 [facility] Pre-Reg 8 [place] [facility] a MNA Phone [id number] 05/29 05/31 [facility] Message Neuro e [facility] Outpatient [id number] LD [place] 05/30 Active [facility] Outpatient [id number] LD [place] 05/30 [facility] [id number] Saroj-Leticia 05/30 05/31 [facility] 0 [place] Neuro e [facility] MNA Ambulatory [id number] [place] 05/30 05/30 [facility] Pre-Reg 9 [place] [facility] a Outpatient [id number] ILENE 06/17 Active [facility] Outpatient [id number] Ilene 06/17 06/18 MH Primary 7 [facility] Phone [id number] 06/27 06/29 MH Primary Message [facility] MNA Phone [id number] 06/27 06/29 [facility] Message Neuro e [facility] MNA Phone [id number] 06/27 06/29 [facility] Message Neuro e [facility] Outpatient [id number] ILENE 07/02 Active [facility] 1 [facility] Outpatient [id number] Ilene 07/02 07/03 Primary 1 [facility] Outpatient [id number] ILENE 07/15 [facility] 2 [facility] Outpatient [id number] ILENE 10/16 Active [facility] 3 [facility] Outpatient [id number] ILENE11/28 Active [facility] 5 [facility] Outpatient [id number] Ilene 11/28 11/29 Primary 5 [facility] Outpatient [id number] ILENE01/14 Active [facility] 4 [facility] Outpatient [id number] Ilene 01/14 01/15 Primary 4 [facility] Outpatient [id number] ILENE 04/18 [facility] 6 [facility] Procedures Procedure Code Date Perfomer Comments Source Neck<sup>1</sup> [id number] Surgery on [facility] 7 neck Neck<sup>1</sup> [id number] Surgery on Medical 7 neck Group Appendectomy [id number] [facility] Cardiac [id number] [facility] catheterization Hysterectomy [id number] [facility] Appendectomy [id number] [facility] [id number] [facility] catheterization Hysterectomy [id number] [facility] Appendectomy [id number] [facility] [facility] Cardiac [id number] [facility] [place] catheterization [place] Hysterectomy [id number] [facility] [employer] Appendectomy [id number] [facility] Cardiac [id number] Medical catheterization Group Hysterectomy [id number] [facility]
--- OUTSIDE RECORDS SUMMARY | 2019-01-19 22:12 | XMS REPORT | Summary of Care ---
:1965 Author Organization [facility] Neuroscience [address], [address] [place] [address]- Encounter HQ Encntr_alias(FIN) [id number] Date(s): 05/29/18 - 05/30/[address], [address] [place] [address] [phone] Vital Signs No data available for this section Problem List Condition Effective Dates Status Health Status Informant Accidental fall(Confirmed) Active Acute hyperkalemia(Confirmed) Resolved Acute UTI(Confirmed) Resolved Back pain(Confirmed) Active Benign essential HTN(Confirmed) Active Fluid retention(Confirmed) Active Chronic back pain(Confirmed) Active Chronic kidney disease, stage Active 3(Confirmed) Chronic pain(Confirmed) Resolved Diabetes(Confirmed) Resolved Diabetic retinopathy(Confirmed) Active Impaired mobility and Active ADLs(Confirmed) Left foot pain(Confirmed) Active Left foot drop(Confirmed) Active Hx of fusion of cervical Active spine(Confirmed) Hyperlipidemia(Confirmed) Active Hypertension(Confirmed) Resolved Hypothyroid(Confirmed) Resolved Lower extremity weakness(Confirmed) Active Neck muscle spasm(Confirmed) Active Peripheral neuropathy(Confirmed) Active Rheumatoid arthritis(Confirmed) Active Acute rhinitis(Confirmed) Active Simple obesity(Confirmed) Active Cervical stenosis of Active spine(Confirmed) Type 2 diabetes mellitus, Resolved controlled(Confirmed) Uncontrolled type 2 diabetes with Active renal manifestation(Confirmed) Allergies, Adverse Reactions, Alerts Substance Reaction Severity Status Phenergan Active Prevacid Active Medications No data available for this section Results No data available for this section Immunizations No data available for this section Procedures Procedure Date Related Diagnosis Body Site Status Neck1 08/14/17 Completed Appendectomy Completed Cardiac catheterization Completed Hysterectomy Completed 1Surgery on neck Social History Social History Type Response Substance Abuse Use: None. Exercise Exercise duration: 0. Exercise frequency: 1-2 times/week. Exercise type: Walking. Alcohol Never Smoking Status Never smoker; Ready to change: No; Concerns about tobacco use in household: No; Exposure to Tobacco Smoke None; Cigarette Smoking Last 365 Days Unable to obtain; Reg Smoking Cessation Counseling No entered on: 11/28/18 Assessment and Plan No data available for this section
--- OUTSIDE RECORDS SUMMARY | 2019-01-19 22:12 | XMS REPORT | Summary of Care ---
:1965 Author Organization [facility] Neuroscience [facility] Address [address] [place] [address], [address] [place] [address]- Encounter HQ Nimar_tess(FIN) [id number] Date(s): 05/30/18 - 05/30/18 [facility] Neuroscience [address], [address] [place] [address] [phone] Discharge Disposition: Home or Self Care Attending Physician: Chang Gillespie MD Referring Physician: North Nichols MD Vital Signs Most recent to oldest [Reference Range]: 1 Height 165.1 cm (05/30/18 9:57 AM) Blood Pressure [90-140/60-90 mmHg] 128/76 mmHg (05/30/18 9:57 AM) Peripheral Pulse Rate [60-100 bpm] 89 bpm (05/30/18 9:57 AM) Weight 82.33 kg (05/30/18 9:57 AM) Body Mass Index 30.2 m2 (05/30/18 9:57 AM) Problem List Condition Effective Dates Status Health [...] Severity Status Phenergan Active Prevacid Active Medications gabapentin 400 mg oral capsule 400 mg=1 cap, PO, TID, # 90 cap, 4 Refill(s), Pharmacy: [id number] Start Date: 05/30/18 Status: Orderedtramadol 100 mg oral tablet, extended release 100 mg=1 tab, PO, Daily, # 30 tab, 4 Refill(s) Start Date: 05/30/18 Status: Ordered Results No data available for this section [...]
--- OUTSIDE RECORDS SUMMARY | 2019-01-19 22:12 | XMS REPORT | Summary of Care ---
:1965 Author Organization [facility] Neuroscience [facility] Address [address] [place] [address], [address] [place] [address]- Encounter HQ Encntr_aliwaqas(FIN) [id number] Date(s): 05/30/18 - 05/30/[address], [address] [place] [address] [phone] Attending Physician: Chang Gillespie MD Referring Physician: North Nichols MD Vital Signs No data available for this [...]
--- OUTSIDE RECORDS SUMMARY | 2019-01-19 22:13 | XMS REPORT | Summary of Care ---
:1965 Author Organization [facility] Primary Care [facility] Address [address], [address] [place] [address]- Encounter HQ Mason_tess(FIN) [id number] Date(s): 06/17/18 - 06/17/18 [facility] Care [address], [address] [place] [address]- [phone] Discharge Disposition: Home or Self Care Attending Physician: Ilene Arcos MD Vital Signs Most recent to oldest [Reference Range]: 1 Height 157.48 cm (06/17/18 10:48 AM) Temperature Oral [96.4-99.1 DegF] 97.6 DegF (06/17/18 10:48 AM) Blood Pressure [90-140/60-90 mmHg] 133/82 mmHg (06/17/18 10:48 AM) Peripheral Pulse Rate [60-100 bpm] 80 bpm (06/17/18 10:48 AM) Weight 82.273 kg (06/17/18 10:48 AM) Body Mass Index 33.17 m2 (06/17/18 10:48 AM) Problem List Condition Effective Dates Status [...] Severity Status Phenergan Active Prevacid Active Medications Lantus Solostar Pen 100 units/mL subcutaneous solution 20 unit, SUB-Q, 0 Refill(s) Start Date: 06/17/18 Stop Date: 06/17/18 Status: DiscontinuedLantus Solostar Pen 100 units/mL subcutaneous solution 20 unit, SUB-Q, BID, # 5 pen(s), 0 Refill(s), other Start Date: 06/17/18 Stop Date: 07/09/18 Status: Completedtizanidine 4 mg oral capsule 4 mg=1 cap, PO, Q8H, PRN for muscle spasms, # 90 cap, 0 Refill(s) Start Date: 06/17/18 Stop Date: 06/17/18 Status: Discontinued Results No data available for this section [...]
--- OUTSIDE RECORDS SUMMARY | 2019-01-19 22:14 | XMS REPORT | Summary of Care ---
:1965 Author Organization [facility] Primary Care [facility] Address [address], [address] [place] [address]- Encounter HQ Mason_tess(FIN) [id number] Date(s): 11/28/18 - 11/28/18 [facility] Primary Care [address], [address] [place] [address]- [phone] Discharge Disposition: Home or Self Care Attending Physician: Ilene Arcos MD Vital Signs Most recent to oldest [Reference Range]: 1 Height 154.94 cm (11/28/18 10:02 AM) Temperature Oral [96.4-99.1 DegF] 97.7 DegF (11/28/18 10:02 AM) Blood Pressure [90-140/60-90 mmHg] 112/77 mmHg (11/28/18 10:02 AM) Peripheral Pulse Rate [60-100 bpm] 87 bpm (11/28/18 10:02 AM) Weight 85.455 kg (11/28/18 10:02 AM) Body Mass Index 35.6 m2 (11/28/18 10:02 AM) Problem List Condition Effective Dates Status [...] Severity Status Phenergan Active Prevacid Active Medications atorvastatin 40 mg oral tablet 40 mg=1 tab, PO, Bedtime, # 90 tab, 1 Refill(s), Pharmacy: [id number] Start Date: 11/28/18 Status: OrderedBromfed DM oral syrup 5 mL, PO, TID, PRN cough, X 8 day, # 120 mL, 1 Refill(s), Pharmacy: [id number] Start Date: 11/28/18 Stop Date: 12/14/18 Status: OrderedpredniSONE 5 mg oral tablet 5 mg=1 tab, PO, Daily, Give with food., # 30 tab, 0 Refill(s), other Start Date: 11/28/18 Stop Date: 12/28/18 Status: Ordered Results No data available for [...]
--- OUTSIDE RECORDS SUMMARY | 2019-01-19 22:14 | XMS REPORT | Summary of Care ---
:1965 Author Organization [facility] Primary Care [facility] Address [address] [place] [address], [address] [place] [address]- Encounter HQ Joanne(FIN) [id number] Date(s): 01/14/19 - 01/14/19 [facility] [address] [place], [place] [id number]- [phone] Discharge Disposition: Home or Self Care Attending Physician: Ilene Arcos MD Vital Signs Most recent to oldest [Reference Range]: 1 Height 154.94 cm (01/14/19 8:59 AM) Temperature Oral [96.4-99.1 DegF] 98.6 DegF (01/14/19 8:59 AM) Blood Pressure [90-140/60-90 mmHg] 125/78 mmHg (01/14/19 8:59 AM) Peripheral Pulse Rate [60-100 bpm] 85 bpm (01/14/19 8:59 AM) Weight 88.636 kg (01/14/19 8:59 AM) Body Mass Index 36.92 m2 (01/14/19 8:59 AM) Problem List Condition Effective Dates Status Health Status Informant Accidental fall(Confirmed) Active Acute hyperkalemia(Confirmed) Resolved Acute URI(Confirmed) Active Acute UTI(Confirmed) Resolved Back pain(Confirmed) Active Benign essential HTN(Confirmed) Active Fluid retention(Confirmed) Active Chronic back pain(Confirmed) Active Chronic kidney disease, stage Active 3(Confirmed) Chronic pain(Confirmed) Resolved Diabetes(Confirmed) Resolved Diabetic retinopathy(Confirmed) Active Rash(Confirmed) Active Impaired mobility and Active ADLs(Confirmed) Left foot pain(Confirmed) Active Left foot drop(Confirmed) Active Hx of fusion of cervical Active spine(Confirmed) Hyperlipidemia(Confirmed) Active Hypertension(Confirmed) Resolved Hypothyroid(Confirmed) Resolved Otitis media of right ear with Active rupture of tympanic membrane(Confirmed) Lower extremity weakness(Confirmed) Active Neck muscle spasm(Confirmed) Active Peripheral neuropathy(Confirmed) Active Rheumatoid arthritis(Confirmed) Active Acute rhinitis(Confirmed) Active Simple obesity(Confirmed) Active Cervical stenosis of Active spine(Confirmed) Tinea pedis(Confirmed) Active Type 2 diabetes mellitus, Resolved controlled(Confirmed) Uncontrolled type 2 diabetes with Active renal manifestation(Confirmed) Allergies, Adverse Reactions, Alerts Substance Reaction Severity Status Phenergan Active Prevacid Active Medications amoxicillin 875 mg oral tablet 875 mg=1 tab, PO, BID, X 10 day, # 20 tab, 0 Refill(s) Start Date: 01/14/19 Stop Date: 01/14/19 Status: Discontinuedamoxicillin 875 mg oral tablet 875 mg=1 tab, PO, BID, X 10 day, # 20 tab, 0 Refill(s), Pharmacy: [facility] [id number] Start Date: 01/14/19 Stop Date: 01/24/19 Status: Orderedatorvastatin 40 mg oral tablet 40 mg=1 tab, PO, Bedtime, # 90 tab, 1 Refill(s), Pharmacy: [facility] [id number] Start Date: 01/14/19 Status: OrderedBromfed DM oral syrup 5 mL, PO, TID, PRN cough, X 8 day, # 120 mL, 0 Refill(s), Pharmacy: [facility] [id number] Start Date: 01/14/19 Stop Date: 01/22/19 Status: OrderedCane 1 ea, MISC, Daily, 4 PRONG CANE, # 1 ea, 0 Refill(s) Start Date: 01/14/19 Status: OrderedDULoxetine 60 mg oral delayed release capsule 60 mg, PO, Daily, # 90 tab, 1 Refill(s), Pharmacy: [facility] [id number] Start Date: 01/14/19 Status: Orderedgabapentin 400 mg oral capsule 400 mg=1 cap, PO, TID, # 120 cap, 3 Refill(s), Pharmacy: [facility] [id number] Start Date: 01/14/19 Status: OrderedLantus Solostar Pen 100 units/mL subcutaneous solution 20 unit, SUB-Q, BID, # 5 pen(s), 3 Refill(s), Pharmacy: [facility] [id number] Start Date: 01/14/19 Status: Orderedlisinopril 5 mg oral tablet 5 mg, PO, Daily, # 90 tab, 1 Refill(s), Pharmacy: [facility] [id number] Start Date: 01/14/19 Status: OrderedmetFORMIN 500 mg oral tablet 1,000 mg=2 tab, PO, BID, # 360 tab, 1 Refill(s), Pharmacy: [facility] [id number] Start Date: 01/14/19 Status: Orderednystatin topical 100,000 units/g powder 1 appl, TOP, TID, X 7 day, # 60 gm, 0 Refill(s), Pharmacy: [facility] [id number] Start Date: 01/14/19 Stop Date: 01/21/19 Status: Orderedpioglitazone 30 mg oral tablet 30 mg=1 tab, PO, Daily, # 90 tab, 1 Refill(s), Pharmacy: [facility] [id number] Start Date: 01/14/19 Status: Orderedtriamcinolone topical 0.1% cream 1 appl, TOP, TID, PRN For rash, X 14 day, # 30 gm, 1 Refill(s), Pharmacy: [facility] [id number] Start Date: 01/14/19 Stop Date: 02/11/19 Status: Ordered Results No data available for [...] Reg Smoking Cessation Counseling No entered on: 01/14/19 Assessment and Plan No data available for this section
--- OUTSIDE RECORDS SUMMARY | 2019-01-19 22:14 | XMS REPORT | Summary of Care ---
:1965 Author Organization [facility] Address [address] [place] [address], [address] [place] [address]- Encounter HQ Encntr_aliwaqas(FIN) [id number] Date(s): 06/27/18 - 06/28/[address] [place], [place] [address]- [phone] Vital Signs No data available for this [...]
--- OUTSIDE RECORDS SUMMARY | 2019-01-19 22:14 | XMS REPORT | Summary of Care ---
:1965 Author Organization [facility] Address [address] [place] [address], [address] [place] [address]- Encounter HQ Encntr_aliwaqas(FIN) [id number] Date(s): 06/27/18 - 06/28/[address] [place], [place] [id number]- [phone] Vital Signs No data available for this [...]
--- OUTSIDE RECORDS SUMMARY | 2019-01-19 22:14 | XMS REPORT | Summary of Care ---
:[address] [facility] Primary Care [facility] Address [address], [address] [place] [address]- Encounter HQ Mason_tess(FIN) [id number] Date(s): 06/27/18 - 06/28/18 [facility] [address] [place] [address] [address] [place], [place] [address]- [phone] Vital Signs No data available for this [...]
--- OUTSIDE RECORDS SUMMARY | 2019-01-19 22:15 | XMS REPORT | Summary of Care ---
:1965 Author Organization [facility] Address [address] [place] [address], [address] [place] [address]- Encounter HQ Encntr_alias(FIN) [id number] Date(s): 05/22/18 - 05/23/[address], [address] [place] [address] [phone] Vital Signs No data available for this [...]
--- OUTSIDE RECORDS SUMMARY | 2019-01-19 22:15 | XMS REPORT | Summary of Care ---
:1965 Author Organization [facility] Address [address] [place] [address], [address] [place] [address]- Encounter HQ Encntr_aliwaqas(FIN) [id number] Date(s): 05/28/18 - 05/28/[address], [address] [place] [address] [phone] Attending Physician: Chang Gillespie MD Referring Physician: [...]
--- OUTSIDE RECORDS SUMMARY | 2019-01-19 22:15 | XMS REPORT | Summary of Care ---
:1965 Author Organization [facility] Primary Care [facility] Address [address] [place] [address], [address] [place] [address]- Encounter HQ Mason_tess(FIN) [id number] Date(s): 07/02/18 - 07/02/18 [facility] [address] [place], [place] [address]- [phone] Discharge Disposition: Home or Self Care Attending Physician: Ilene Arcos MD Vital Signs Most recent to oldest [Reference Range]: 1 Height 154.94 cm (07/02/18 7:13 AM) Temperature Oral [96.4-99.1 DegF] 98.4 DegF (07/02/18 7:13 AM) Blood Pressure [90-140/60-90 mmHg] 131/83 mmHg (07/02/18 7:13 AM) Peripheral Pulse Rate [60-100 bpm] 98 bpm (07/02/18 7:13 AM) Weight 81.364 kg (07/02/18 7:13 AM) Body Mass Index 33.89 m2 (07/02/18 7:13 AM) Problem List Condition Effective Dates Status [...] Severity Status Phenergan Active Prevacid Active Medications CeleBREX 100 mg oral capsule 100 mg=1 cap, PO, BID, # 60 cap, 0 Refill(s), Pharmacy: [facility] [id number] Start Date: 07/03/18 Status: OrderedDULoxetine 60 mg oral delayed release capsule 60 mg, PO, Daily, # 30 tab, 3 Refill(s), Pharmacy: [facility] [id number] Start Date: 07/09/18 Stop Date: 01/14/19 Status: DiscontinuedketOROLAC 60 mg, Route: IM, ONCE, Dosing Weight 81.364, kg, Start date: 07/02/18 7:45:00 CDT, Stop date: 07/02/18 7:45:00 CDT Start Date: 07/02/18 Stop Date: 07/02/18 Status: CompletedLantus Solostar Pen 100 units/mL subcutaneous solution 20 unit, SUB-Q, BID, # 5 pen(s), 3 Refill(s), Pharmacy: [facility] [id number] Start Date: 07/09/18 Stop Date: 10/16/18 Status: Discontinuedlisinopril 5 mg oral tablet 5 mg, PO, Daily, # 90 tab, 1 Refill(s), Pharmacy: [facility] [id number] Start Date: 07/03/18 Stop Date: 10/16/18 Status: DiscontinuedmetFORMIN 500 mg oral tablet 500 mg, PO, BID, # 180 tab, 1 Refill(s), Pharmacy: [facility] [id number] Start Date: 07/03/18 Stop Date: 07/15/18 Status: Discontinuedpioglitazone 15 mg oral tablet 15 mg, PO, Daily, # 90 tab, 1 Refill(s), Pharmacy: [facility] [id number] Start Date: 07/03/18 Stop Date: 07/15/18 Status: Discontinued Results No data available for [...]
--- OUTSIDE RECORDS SUMMARY | 2019-01-19 22:15 | XMS REPORT | Summary of Care ---
:1965 Author Organization [facility] Address [address] [place] [address], [address] [place] [address]- Encounter HQ Encntr_aliwaqas(FIN) [id number] Date(s): 05/14/18 - 05/14/[address], [address] [place] [address] [phone] Discharge Disposition: Home or Self Care Attending Physician: Chang Gillespie MD Referring Physician: Kala Smith MD Vital Signs No data available for [...]
--- OUTSIDE RECORDS SUMMARY | 2019-01-19 22:15 | XMS REPORT ---
:1965 Author Organization [facility] Address [address] [place] [address] Dr. Thomas [address] [place] [address] Care Team Providers Name Role Phone Unavailable Unavailable Unavailable Problems This patient has no known problems. Allergies, Adverse Reactions, Alerts This patient has no known allergies or adverse reactions. Medications This patient has no known medications.
--- OUTSIDE RECORDS SUMMARY | 2019-01-19 22:15 | XMS REPORT | Summary of Care ---
:1965 Author Organization [facility] [address], [address] [place] [address]- Encounter HQ Encntr_alias(FIN) [id number] Date(s): 05/21/18 - 05/22/[address], [address] [place] [address] [phone] Vital Signs No data available for this [...]
[2019-01-19 23:19] LABS: Potassium 5.1 mmol/L (3.5-5.1)
[2019-01-20 00:44] LABS: Absolute Lymphocytes (CBC) 2.6 K/uL (0.7-4.9); Absolute Monocytes 0.7 K/uL (0.1-1.3); Basophils % 0.5 % (0-1.3); Hematocrit 33.7 % (36.0-45.0); Lymphocytes % 34.1 % (15.3-44.8); MPV 10.3 fL (7.6-11.3)
[2019-01-20] MEDS ORDERED: FENTANYL CITR 100 MCG/2 ML ONE (00:48)
[2019-01-20] MEDS ORDERED: ONDANSETRON 4 MG/2 ML VIAL ONE (00:48)
[2019-01-20 00:53] LABS: Urine Blood NEGATIVE (NEG); Urine Glucose NEGATIVE (NEG); Urine Protein 2+ (NEG); Urine Specific Gravity 1.015 (1.005-1.030); Urine pH 5.5 (5.0-7.0)
[2019-01-20] MEDS ORDERED: D50W 25 GM/50 ML SYRINGE IV ONE (02:23)
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
[2019-01-20 05:17] VITALS: BP 131/59; O2SAT 97
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
== END 2019-01-20 04:21 | disposition home or self-care (01) ==
LOC: ER 22:04
DX: G89.11 Acute pain due to trauma (principal); V49.40XA Driver injured in collision with unspecified motor vehicles in traffic accident, initial encounter; I10 Essential (primary) hypertension; Z88.8 Allergy status to other drugs, medicaments and biological substances
CPT/HCPCS: 85025; 80048; 36415; 86900; 86850; 86901; 82962 ×4; 81003; 70450; 72125; 71260; 74177; 96375; 96374; 99285; Q9967; J3010; J2405

== ENCOUNTER 2019-07-02 21:10 | Emergency (ER) | payer OTHER ==
--- OUTSIDE RECORDS SUMMARY | 2019-07-02 21:17 | XMS REPORT | Continuity of Care Document ---
:1965 Author Organization [employer] Care Team Providers Name Role Phone [employer] Unavailable Unavailable Problems Problem Status Onset Classification Date Comments Source Date Reported E11.65 - TYPE 2 Active 02/08/20 [facility] DIABETES MELLITUS 19 [facility] WITH G89.4 Active 09/24/20 18 [place] Chronic kidney 08/16/20 03/01/2019 OPID disease, stage 3 18 [facility] (moderate) LBP/LT LEG/RA Active 06/27/20 S[facility] Other spondylosis 12/08/19 03/12/2018 OPID with 18 [place] radiculopathy, cervical region CERVICAL SPINE Active 08/09/20 STENOSIS 17 [facility] ISCHEMIC STROKE Active 08/07/20 17 [facility] Spinal stenosis, 03/12/2018 OP[facility] cervical region [place] Other specified 03/12/2018 OPID postprocedural [place] states Osteophyte, 03/12/2018 [facility] vertebrae [place] Accidental fall Active Problem 06/18/2019 Medical (finding[place] [place] [facility], [facility] [place] Acute Resolved Problem 06/18/2019 Medical hyperkalemia Group,[facility] [place] [facility], [facility] [place], [facility] [place] Acute urinary Resolved Problem 06/18/2019 Medical tract infection Group,[facility] [place] [facility], [facility] [place], [facility] [place] [place] Backache Active Problem 06/18/2019 Medical (finding) Group,[facility] [place] [facility], [facility] [place], [facility] [place] [place] Benign essential Active Problem 06/18/2019 Medical hypertension Group,[facility] [place] [facility], [facility] [place], [facility] [place] [place] Body fluid Active Problem 06/18/2019 Medical retention Group,[facility] [place]order[place] [facility] Neuro,[facility] [place] [place] [place] [facility] Chronic back pain Active Problem 06/18/2019 Medical (disorder) Group,[facility] [place] [place] [place] [facility] [place] Chronic kidney Active Problem 06/18/2019 Medical disease stage 3 Group,[facility] [place] [facility] [place] [place] [place] [facility] Chronic pain Resolved Problem 06/18/2019 Medical (finding) Group,[facility] [place] Diabetes mellitus Resolved Problem 06/18/2019 Medical (disorder) Group,[facility] [place] [facility], [facility] [place], [facility] [place] Diabetic Active Problem 06/18/2019 Medical retinopathy Group,[facility] [place] [facility], [facility] [place] [place] Finding of Active Problem 06/18/2019 Medical functional Group,[facility] performance and er Neuro, activity [facility] [place]finding[place], [facility] [place] Foot pain Active Problem 06/18/2019 Medical (finding) Group,[facility], [facility] [place] [place] Foot-drop Active Problem 06/18/2019 Medical (finding) Group,[facility] [place] [facility], [facility] [place] [place] History of Active Problem 06/18/2019 Medical cervical spine Group,[facility] fusion [place] Neuro, (situation) [facility] [place] [place] Hyperlipidemia Active Problem 06/18/2019 [facility], [facility] [place], [facility] [place] [place] [place] [facility] Hypertensive Resolved Problem 06/18/2019 Medical disorder, Group,[facility] systemic arterial er Neuro, (disorder) [facility] [place], [facility] [place] [place] Hypothyroidism Resolved Problem 06/18/2019 Medical (disorder) Group,[facility] [place] [facility], [facility] [place] [place] [place] [facility] Monoparesis - leg Active Problem 06/18/2019 Medical (disorder) Group,[facility] [place] [facility], [facility] [place], [facility] [place] [place] Muscle spasm of Active Problem 06/18/2019 Medical cervical muscle [facility], (disorder) [facility] [place] [place] Peripheral nerve Active Problem 06/18/2019 Medical disease Group,[facility] [place] [facility], [facility] [place] [place] Rheumatoid Active Problem 06/18/2019 Medical arthritis Group,[facility] [place] Neuro, [facility] [place], [facility] [place] [place] Rhinitis Active Problem 06/18/2019 Medical (disorder) Group,[facility], [facility] [place] [place] Simple obesity Active Problem 06/18/2019 Medical (disorder) Group,[facility], [facility] [place], [facility] [place] [place] Spinal stenosis Active Problem 06/18/2019 Medical in cervical Group,[facility] region (disorder) er Neuro, OPID [place], [facility] [place] [place] Diabetes mellitus Resolved Problem 06/18/2019 Medical type 2 (disorder) Group,[facility], [facility] [place] [place] [place] [facility] Type II diabetes Active Problem 06/18/2019 Medical mellitus Group,[facility] uncontrolled er Neuro, (finding) [facility] [place] [place] [place] [facility] Acute upper Active Problem 06/18/2019 Medical respiratory Group,[facility] infection er Neuro, (disorder) [facility] [place] [place] Eruption of skin Resolved Problem 06/18/2019 Medical (disorder) Group,[facility], [facility] [place] [place] Infective otitis Active Problem 06/18/2019 Medical media (disorder) Group,[facility], [facility] [place] [place] Tinea pedis Active Problem 06/18/2019 Medical (disorder) Group,[facility], [facility] [place] [place] Screening status Active Problem 06/18/2019 Medical (finding) Group Type 2 diabetes Active Problem 07/02/2019 eCW: [place] mellitus with [place] hyperglycemia Diabetic Active Problem 07/02/2019 eCW: [place] peripheral [place] neuropathy Hypertension Active Problem 07/02/2019 eCW: [place] Neely Depression Active Problem 07/02/2019 eCW: [place] Neely Hyperlipidemia Active Problem 07/02/2019 eCW: [place] Neely Diabetic Active Problem 07/02/2019 eCW: [place] retinopathy [place] 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 eCW: [place] syndrome [place] Rheumatoid Active Diagnosis 07/02/2019 eCW: [place] arthritis [place] Abnormal ankle Active Problem 07/02/2019 eCW: [place] brachial index [place] Chronic kidney Active Problem 07/02/2019 eCW: [place] disease (CKD) [place] stage G3a/A1, moderately decreased glomerular filtration rate (GFR) between 45-59 mL/min/1.73 square meter and albuminuria creatinine ratio less than 30 mg/g Hypothyroidism Active Problem 07/02/2019 eCW: [place] Neely Anemia associated Active Problem 07/02/2019 eCW: [place] with chronic [place] renal failure ILLNESS, Active MH UNSPECIFIED [facility] STENOSIS OF Active MH UNSPECIFIED [facility] 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 Medication Details Route Status Patient Ordering Order Source Instructions Provider Date {6 See Active 05/29/ Medical (Azithromycin Instructions 2019 Group 250 MG Oral , Take 2 Tablet tablets by [Zithromax]) } mouth the Pack [Z-PAKS] first day then 1 tablet by mouth days 2-5., X 5 day, # 6 tab, 0 Refill(s), Pharmacy: [id number] benzonatate 100 100 mg=1 Active 05/29/ Medical MG Oral Capsule cap, PO, 2019 Group [Tessalon Q8H, PRN Perles] cough, do not crush or chew, X 10 day, # 30 cap, 0 Refill(s), Pharmacy: [facility] #[id number] levothyroxine 1 tab(s) orally Active 50 mcg (0.05 [place] 05/29/ eCW: [place] mg) orally once 2019 [place] a day Humalog KwikPen ldss subcutane Active 100 units/mL [place] 02/28/ eCW: [place] ously subcutaneously 2019 [place] ACTID prn BG >200 One Touch Verio as directed NA Active - [place] 01/28/ eCW: [place] Maurice Test 2019 [place] Strips Blood Glucose 1 box, MISC, Active Medical Test Strips BID-Before 2019 Group Meals, # 3 box, 6 Refill(s), [facility] [address] gabapentin 400 400 mg=1 Active Medical MG Oral Capsule cap, PO, 2019 Group TID, # 120 cap, 3 Refill(s), [facility] [address] DULoxetine 60 60 mg, PO, Active Medical mg oral delayed Daily, # 90 2019 Group release capsule tab, 1 Refill(s), Pharmacy: [facility] 10471 pioglitazone 30 30 mg=1 tab, Active Medical mg oral tablet PO, Daily, # 2019 Group 90 tab, 1 Refill(s), [facility] [address] Metformin 1,000 mg=2 Active Medical hydrochloride tab, PO, 2019 Group 500 MG Oral BID, # 360 Tablet tab, 1 Refill(s), [facility]: [facility] 10484 lisinopril 5 mg 5 mg, PO, Active Medical oral tablet Daily, # 90 2019 Group tab, 1 [facility]ill(s[facility] ML Insulin 20 unit, Active Medical Glargine 100 SUB-Q, BID, 2019 Group UNT/ML # 5 pen(s), Prefilled 3 Refill(s), Syringe Pharmacy: [facility]us[facility] 8[address] atorvastatin 40 40 mg=1 tab, Active Medical mg oral tablet PO, Bedtime, 2019 Group # 90 tab, 1 Refill(s), [facility] [address] amoxicillin 875 875 mg=1 Active Medical mg oral tablet tab, PO, 2019 Group BID, X 10 day, # 20 tab, 0 Refill(s), [facility] [address] Brompheniramine 5 mL, PO, Active Medical Maleate 0.4 TID, PRN 2019 Group MG/ML / cough, X 8 Dextromethorpha day, # 120 n Hydrobromide mL, 0 2 MG/ML / Refill(s), Pseudoephedrine Pharmacy: [facility] 96507 [Bromfed DM] amoxicillin 875 875 mg=1 Inactive Medical mg oral tablet tab, PO, 2019 Group BID, X 10 day, # 20 tab, 0 Refill(s) Cane 1 ea, MISC, Active Medical Daily, 4 2019 Group PRONG CANE, # 1 ea, 0 Refill(s) Nystatin 100 1 appl, TOP, Active Medical UNT/MG Topical TID, X 7 2019 Group Powder day, # 60 gm, 0 Refill(s), Pharmacy: [facility] 23091 Triamcinolone 1 appl, TOP, Active Medical Acetonide 1 TID, PRN For 2019 Group MG/ML Topical rash, X 14 Cream day, # 30 gm, 1 Refill(s), [facility]acy: [facility] 49605 atorvastatin 40 40 mg=1 tab, No Longer Medical mg oral tablet PO, Bedtime, Active 2019 Group # 90 tab, 1 Refill(s), Pharmacy: [facility] 76247 predniSONE 5 mg 5 mg=1 tab, Active Medical oral tablet PO, Daily, 2019 Group Give with food., # 30 tab, 0 Refill(s), other Brompheniramine 5 mL, PO, No Longer Medical Maleate 0.4 TID, PRN Active 2019 Group MG/ML / cough, X 8 Dextromethorpha day, # 120 n Hydrobromide mL, 1 2 MG/ML / Refill(s), Pseudoephedrine Pharmacy: [facility] MG/ML Oral [facility] [id number] [Bromfed DM] atorvastatin 40 40 mg=1 tab, No Longer Medical mg oral tablet PO, Bedtime, Active 2018 Group # 90 tab, 1 Refill(s), Pharmacy: [facility] 49452 pioglitazone 30 30 mg=1 tab, No Longer Medical mg oral tablet PO, Daily, # Active 2018 Group 90 tab, 1 Refill(s), Pharmacy: [facility] 60314 Metformin 1,000 mg=2 No Longer Medical hydrochloride tab, PO, Active 2018 Group 500 MG Oral BID, # 360 Tablet tab, 1 Refill(s), Pharmacy: [facility] 15234 lisinopril 5 mg 5 mg, PO, No Longer Medical oral tablet Daily, # 90 Active 2018 Group tab, 1 Refill(s), Pharmacy: [facility] 50207 3 ML Insulin 20 unit, No Longer Medical Glargine 100 SUB-Q, BID, Active 2018 Group UNT/ML # 5 pen(s), Prefilled 3 Refill(s), Syringe Pharmacy: [Lantus] [facility] 67032 Ketorolac 60 mg, Inactive Medical Route: IM, 2018 Group ONCE, Dosing Weight 81.818, kg, Start date: 10/16/18 9:53:00 [employer], Stop date: 10/16/18 9:53:00 [employer] Cane 1 ea, MISC, No Longer Medical Daily, 4 Active 2018 Group PRONG CANE, # 1 ea, 0 Refill(s) atorvastatin 20 20 mg=1 tab, No Longer Medical mg oral tablet PO, Bedtime, Active 2018 Group # 90 tab, 1 Refill(s), Pharmacy: [facility] 67873 Metformin 1,000 mg=2 No Longer Medical hydrochloride tab, PO, Active 2018 Group 500 MG Oral BID, # 360 Tablet tab, 1 Refill(s), Pharmacy: [facility] 90537 pioglitazone 30 30 mg=1 tab, No Longer Medical mg oral tablet PO, Daily, # Active 2018 Group 90 tab, 1 Refill(s), [facility] [address]51 3 ML Insulin 20 unit, No Longer Medical Glargine 100 SUB-Q, BID, Active 2018 Group UNT/ML # 5 pen(s), Prefilled 3 Refill(s), Syringe [facility] 0[address]48 DULoxetine 60 60 mg, PO, No Longer Medical mg oral delayed Daily, # 30 Active 2018 Group release capsule tab, 3 Refill(s), [facility] [address] celecoxib 100 100 mg=1 Active Medical MG Oral Capsule cap, PO, 2018 Group [Celebrex] BID, # 60 cap, 0 Refill(s), [facility] 8[address] Metformin 500 mg, PO, No Longer Medical hydrochloride BID, # 180 Active 2018 Group 500 MG Oral tab, 1 Tablet Refill(s), Pharmacy: [facility] 07475 pioglitazone 15 15 mg, PO, No Longer Medical mg oral tablet Daily, # 90 Active 2018 Group tab, 1 Refill(s), [facility] [address] lisinopril 5 mg 5 mg, PO, No Longer Medical oral tablet Daily, # 90 Active 2018 Group tab, 1 Refill(s), [facility] Ketorolac 60 mg, Inactive Medical Route: IM, 2018 Group ONCE, Dosing Weight 81.364, kg, Start date: 07/02/18 7:45:00 CDT, Stop date: 07/02/18 7:45:00 CDT 3 ML Insulin 20 unit, No Longer Medical Glargine 100 SUB-Q, BID, Active 2018 Group UNT/ML # 5 pen(s), Prefilled 0 Refill(s), Syringe other [Lantus] tizanidine 4 mg 4 mg=1 cap, Inactive Medical oral capsule PO, Q8H, PRN 2018 Group for muscle spasms, # 90 cap, 0 Refill(s) 3 ML Insulin 20 unit, Inactive Medical Glargine 100 SUB-Q, 0 2018 Group UNT/ML Refill(s) Prefilled Syringe [Lantus] gabapentin 400 400 mg=1 Active 05/30/ [facility] MG Oral Capsule cap, PO, 2018 Neuro TID, # 90 cap, 4 Refill(s), [facility] [address]68 tramadol 100 mg 100 mg=1 Active 05/30/ [facility] oral tablet, tab, PO, 2018 Neuro extended Daily, # 30 release tab, 4 Refill(s) tizanidine 4 mg 4 mg=1 tab, Active 04/25/ [facility] oral tablet PO, Q8H, # 2018 Neuro 50 tab, 0 Refill(s), Pharmacy: [facility] 46156 Methocarbamol 500 mg=1 No Longer 04/24/ [facility] 500 MG Oral tab, PO, Active 2018 Neuro Tablet Q8H, PRN [Robaxin] Spasms, # 40 tab, 0 Refill(s), Pharmacy: [facility] 13599 Cyclobenzaprine 10 mg=1 tab, Active 10/17/ [facility] hydrochloride PO, TID, PRN 2017 Neuro 10 MG Oral for spasm, X Tablet 21 day, # 63 [Flexeril] tab, 0 Refill(s), Pharmacy: [facility] 404[address] tramadol 50 mg=1 tab, Active 08/22/ hydrochloride PO, Q8H, PRN 2017 [facility] 50 MG Oral Pain Score Tablet 4-6, # 24 tab, 0 Refill(s) Ciprofloxacin 500 mg=1 Active 08/22/ MH 500 MG Oral tab, PO, 2017 [facility] Tablet [Cipro] Q12H, X 7 day, # 14 tab, 0 Refill(s), Pharmacy: [facility] 12934 sodium chloride 1,000 mL, No Longer 0.9% 1000 ml Rate: 100 Active 2016 [facility] INJ 1,000 mL ml/hr, Infuse over: 10 hr, Route: IV, Dosing Weight 80.9 kg, Total Volume: 1,000, Start date: 08/20/17 14:13:00 CDT, Duration: 30 day, Stop date: 09/19/17 14:12:00 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 Use with 100 mL NS and infuse over 30 min MEDICATION WASTE Product Size: 1000 mg Product Wasted: ___ mg Rocephin 1 gm, Route: Inactive IVPB, 2016 [facility] [id number], Dosing Weight 80.9, kg, Start date: 08/18/17 11:02:00 CDT, Duration: 5 day, Stop date: 08/22/17 13:00:00 CDT, ABX Indication: Urinary Tract InfectionNot es: (Same As: Rocephin). Use with 100 mL NS and infuse over 30 min MEDICATION WASTE Product Size: 1000 mg Product Wasted: ___ mg Zofran 4 mg, 2 mL, No Longer Route: IVP, Active 2016 [facility] Drug form: INJ, Q8H, Dosing Weight 80.9, kg, PRN Nausea, Start date: 08/17/17 11:21:00 CDT, Duration: 30 day, Stop date: 09/16/17 11:20:00 CSTNotes: (Same as: Zofran) MEDICATION WASTE Product Size: 4 mg Product Wasted: ___ mg senna 8.6 mg 8.6 mg, 1 No Longer oral tablet tab, Route: Active 2016 [facility] PO, Drug Form: TAB, Dosing Weight 80.9, kg, BID, Start date: 08/16/17 17:00:00 CDT, Duration: 30 day, Stop date: 09/15/17 9:00:00 CSTNotes: (Same as: Senokot) Miralax 17 gm, 1 No Longer pkt, Route: Active 2016 [facility] PO, Drug form: PWDR, Daily, Dosing Weight 80.9, kg, Start date: 08/16/17 13:05:00 CDT, Duration: 30 day, Stop date: 09/15/17 9:00:00 CSTNotes: Dissolve in 8 oz of water or juice. (Same as: Miralax) aspirin 81 mg 81 mg, 1 No Longer tablet, enteric tab, Route: Active 2016 [facility] coated PO, Drug form: ECTAB, Daily, Dosing Weight 80.9, kg, Priority: NOW, Start date: 08/16/17 10:53:00 CDT, Duration: 30 day, Stop date: 09/15/17 9:00:00 CSTNotes: Do not crush or chew. (Same As: Ecotrin) Celebrex 100 mg, 1 No Longer cap, Route: Active 2016 [facility] PO, Drug form: CAP, Q12H, Dosing Weight 80.9, kg, Start date: 08/15/17 11:00:00 CDT, Duration: 7 day, Stop date: 08/22/17 9:00:00 CDTNotes: NSAID. Please check indication. Not for seizure. (Same As: CeleBREX ) senna 8.6 mg 8.6 mg, 1 No Longer oral tablet tab, Route: Active 2016 [facility] PO, Drug Form: TAB, Dosing Weight 80.9, kg, Daily, Start date: 08/15/17 9:00:00 CDT, Duration: 30 day, Stop date: 09/13/17 9:00:00 CSTNotes: (Same as: Senokot) Docusate Sodium 100 mg, 1 No Longer 100 MG Oral cap, Route: Active 2016 [facility] Capsule PO, Drug form: CAP, BID, Dosing Weight 80.9, kg, Start date: 08/14/17 17:00:00 CDT, Duration: 30 day, Stop date: 09/13/17 9:00:00 CSTNotes: (Same as: Colace) (Do Not Crush) Tramadol 100 mg, 2 No Longer tab, Route: Active 2016 [facility] PO, Drug form: TAB, Q6H, Dosing Weight 80.9, kg, Start date: 08/14/17 0:00:00 CDT, Stop date: 09/12/17 18:00:00 CSTNotes: Not to exceed 400mg/day. (Same As: Ultram) Robaxin 1,000 mg, 2 No Longer tab, Route: Active 2016 [facility] PO, Drug form: TAB, Q6H, Dosing Weight 80.9, kg, Start date: 08/14/17 0:00:00 CDT, Stop date: 09/12/17 18:00:00 CSTNotes: (Same as:Robaxin) Cefazolin 2 gm, 100 Inactive 08/14/ MH mL, Route: 2016 [facility] IVPB, Drug form: INJ, Q8H-01, Dosing Weight 80.9, kg, Start date: 08/14/17 0:00:00 CDT, Duration: 1 doses or times, Stop date: 08/14/17 0:00:00 CDT, ABX Indication: Surgical ProphylaxisN otes: Same as: Ancef Fentanyl 50 No Longer microgram, 1 Active 2016 [facility] mL, Route: IV, Drug form: INJ, Q15Min, Dosing Weight 80.9, kg, PRN Pain Score 7-10, Start date: 08/13/17 21:02:00 CDT, Duration: 2 doses or times, Stop date: Limited # of timesNotes: (Same as: Sublimaze) Preservative free. Albuterol 0.83 2.49 mg, 3 No Longer 08/14/ MH MG/ML Inhalant mL, Route: Active 2016 [facility] Solution NEB, Drug form: SOLN, PRN, Dosing Weight 80.9, kg, PRN Respiratory Protocol, Start date: 08/13/17 21:02:00 CDT, Duration: 30 day, Stop date: 09/12/17 20:01:00 CSTNotes: SEE RT DOCUMENTATIO N (Same as: Proventil) Promethazine 6.25 mg, Inactive Route: IVPB, 2016 [facility] ONCE, Dosing Weight 80.9, kg, PRN Nausea & Vomiting, Start date: 08/13/17 21:02:00 CDT Naloxone 0.1 mg, 0.25 No Longer 08/14/ MH mL, Route: Active 2016 [facility] SUB-Q, Drug form: INJ, Q6H, Dosing Weight 80.9, kg, PRN Itching, Start date: 08/13/17 21:02:00 CDT, Duration: 30 day, Stop date: 09/12/17 21:01:00 CSTNotes: Same as Narcan Ondansetron 4 mg, 2 mL, No Longer Route: IVP, [facility] 2016 [facility] Drug form: INJ, ONCE, Dosing Weight 80.9, kg, PRN Nausea & Vomiting, Start date: 08/13/17 21:02:00 CDTNotes: (Same as: Yonathan) MEDICATION WASTE Product Size: 4 mg Product Wasted: ___ mg Meperidine 12.5 mg, No Longer 0.25 mL, 2016 [facility] Route: IVP, Drug form: INJ, Q30Min, Dosing Weight 80.9, kg, PRN Other -See Comment, For shivering, Start date: 08/13/17 21:02:00 CDT, Duration: 2 doses or times, Stop date: Limited # of timesNotes: (Same As: Demerol) Diphenhydramine 12.5 mg, No Longer 0.25 mL, 2016 [facility] Route: IVP, Drug form: INJ, Q6H, Dosing Weight 80.9, kg, PRN Itching, Start date: 08/13/17 21:02:00 CDT, Duration: 30 day, Stop date: 09/12/17 21:01:00 CSTNotes: (Same as: Benadryl) Glycopyrrolate 0.2 mg, 1 No Longer mL, Route: [facility] 2016 [facility] IVP, Drug form: INJ, Q5Min, Dosing Weight 80.9, kg, PRN Bradycardia, Start date: 08/13/17 21:02:00 CDT, Duration: 3 doses or times, Stop date: Limited # of timesNotes: (Same as: Robprinceul) Flumazenil 0.2 mg, 2 No Longer mL, Route: [facility] 2016 [facility] IVP, Drug form: INJ, PRN, Dosing Weight 80.9, kg, PRN Benzodiazepi ne Reversal, Initial dose, Start date: 08/13/17 21:02:00 CDT, Duration: 30 day, Stop date: 09/12/17 20:01:00 CSTNotes: (Same as: Romazicon) Ephedrine 5 mg, 1 mL, No Longer Route: IVP, [facility] 2016 [facility] Drug form: INJ, Q5Min, Dosing Weight 80.9, kg, PRN Low Blood Pressure, Start date: 08/13/17 21:02:00 CDT, Duration: 30 day, Stop date: 09/12/17 20:01:00 CSTNotes: final concentratio n 5 mg/mL Labetalol 10 mg, 2 mL, No Longer Route: IVP, Active 2016 [facility] Drug form: INJ, Q5Min, Dosing Weight 80.9, kg, PRN Elevated BP, Start date: 08/13/17 21:02:00 CDT, Duration: 5 doses or times, Stop date: Limited # of timesNotes: (Same as: Normodyne, Trandate) Push over 2 minutes Give bolus over 2-3 minutes. Hydralazine 10 mg, 0.5 No Longer mL, Route: Active 2016 [facility] IVP, Drug form: INJ, Q20Min, Dosing Weight 80.9, kg, PRN Elevated BP, Start date: 08/13/17 21:02:00 CDT, Duration: 2 doses or times, Stop date: Limited # of timesNotes: (Same as: Apresoline) Push over 5 minutes Ketorolac 30 mg, 1 mL, No Longer Route: IVP, 2016 [facility] Drug form: INJ, ONCE, Dosing Weight 80.9, kg, Start date: 08/13/17 21:02:00 CDT, Duration: 1 doses or times, Stop date: 08/13/17 21:02:00 CDTNotes: (Same as:Toradol) IV bolus must be given >15 seconds. Give IM administrati on slowly and deeply into the muscle. Not for use > 4 days MEDICATION WASTE Product Size: 30 mg Product Wasted: ___ mg Acetaminophen 1,000 mg, Inactive Route: IVPB2016 [facility] Drug form: INJ, ONCE, Dosing Weight 80.9, kg, PRN Pain Score 1-3, Start date: 08/13/17 21:02:00 CDT, Duration: 1 doses or times, Stop date: Limited # of times Hydromorphone 0.5 mg, 0.5 No Longer mL, Route: Active 2016 [facility] IVP, Drug form: INJ, Q5Min, Dosing Weight 80.9, kg, PRN Pain Score 7-10, Start date: 08/13/17 21:02:00 CDT, Duration: 4 doses or times, Stop date: Limited # of times neostigmine Route: IV, Inactive MH (ANES) Drug form: 2016 [facility] INJ, ONCE, Stop date: 08/13/17 20:07:00 CDT glycopyrrolate Route: IV, Inactive (ANES) Drug form: 2016 [facility] INJ, ONCE, Stop date: 08/13/17 20:07:00 CDT ketOROLAC IV, ONCE Inactive (ANES) 2016 [facility] ondansetron Route: IV, Inactive (ANES) Drug form: 2016 [facility] INJ, ONCE, Stop date: 08/13/17 19:26:00 CDT dexamethasone Route: IV, Inactive MH (ANES) Drug form: 2016 [facility] INJ, ONCE, Stop date: 08/13/17 18:25:00 CDT rocuronium Route: IV, Inactive MH (ANES) Drug form: 2016 [facility] INJ, ONCE, Stop date: 08/13/17 18:20:00 CDT ePHEDrine Route: IV, Inactive MH (ANES) Drug form: 2016 [facility] INJ, ONCE, Stop date: 08/13/17 18:06:00 CDT propofol (ANES) Route: IV, Inactive MH Drug form: 2016 [facility] INJ, ONCE, Stop date: 08/13/17 18:00:00 CDT phenylephrine Route: IV, Inactive MH (ANES) Drug form: 2016 [facility] INJ, ONCE, Stop date: 08/13/17 18:00:00 CDT acetaminophen Route: IV, Inactive MH (ANES) (ANES) Drug form: 2016 [facility] INJ, Start date: 08/13/17 17:53:00 CDT, Stop date: 08/13/17 18:53:00 CDT phenylephrine Route: IV, Inactive MH (ANES) (ANES) Drug form: 2016 [facility] INJ, Start date: 08/13/17 17:44:00 CDT, Stop date: 08/13/17 18:44:00 CDT ceFAZolin Route: IV, Inactive (ANES) Drug form: 2016 [facility] INJ, ONCE, Stop date: 08/13/17 17:40:00 CDT fentaNYL (ANES) Route: IV, Inactive Drug form: 2016 [facility] INJ, ONCE, Stop date: 08/13/17 17:25:00 CDT midazolam Route: IV, Inactive (ANES) Drug form: 2016 [facility] SOLN, ONCE, Stop date: 08/13/17 17:25:00 CDT Isolyte S (PH Route: IV, Inactive 7.4) 1000 mL Total 2016 [facility] (ANES) Volume: 1,000, Start date: 08/13/17 16:50:00 CDT, Stop date: 08/13/17 17:50:00 CDT D5W 1,000 mL 1,000 mL, No Longer Rate: 75 Active 2016 [facility] ml/hr, Infuse over: 13.3 hr, Route: IV, Dosing Weight 80.9 kg, Total Volume: 1,000, Start date: 08/13/17 11:59:00 CDT, Duration: 30 day, Stop date: 09/12/17 11:58:00 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 [employer] Lisinopril 5 mg, 1 tab, No Longer Route: PO, Active 2016 [facility] Drug form: TAB, Daily, Dosing Weight 80.9, kg, Start date: 08/12/17 9:00:00 CDT, Duration: 30 day, Stop date: 09/10/17 9:00:00 CSTNotes: (Same as: Prinivil, Zestril) Thyroxine 50 No Longer microgram, 1 Active 2016 [facility] tab, Route: PO, Drug form: TAB, Q630AM, Dosing Weight 80.9, kg, Start date: 08/12/17 6:30:00 CDT, Duration: 30 day, Stop date: 09/10/17 6:30:00 CSTNotes: Take 1 hour before or 2 hours after meal; Enteral feeds may interefere with the absorption of this medication.( Same as:Levothroi d, Synthroid) gabapentin 300 300 mg, 1 No Longer MG Oral Capsule cap, Route: Active 2016 [facility] PO, Drug form: CAP, TID, Dosing Weight 80.9, kg, Start date: 08/11/17 17:00:00 CDT, Duration: 30 day, Stop date: 09/10/17 13:00:00 CSTNotes: (Same as: Neurontin) Flomax 0.4 mg, 1 No Longer cap, Route: Active 2016 [facility] PO, Drug form: CAP, Daily, Dosing Weight 80.9, kg, Priority: NOW, Start date: 08/11/17 12:27:00 CDT, Duration: 30 day, Stop date: 09/10/17 9:00:00 CSTNotes: (Same As: Flomax) "Do Not Crush" heparin sodium, 5,000 unit, No Longer porcine 2500 1 mL, Route: Active 2016 [facility] UNT/ML SUB-Q, Drug Injectable form: INJ, Solution Q12H, Dosing Weight 80.9, kg, Start date: 08/10/17 21:00:00 CDT, Duration: 30 day, Stop date: 09/09/17 9:00:00 CSTNotes: porcine heparin Kayexalate 15 gm, 60 Inactive mL, Route: 2016 [facility] PO, Drug form: SUSP, ONCE, Dosing Weight 80.9, kg, Priority: NOW, Start date: 08/10/17 12:03:00 CDT, Stop date: 08/10/17 12:03:00 CDTNotes: (sodium polystyrene sulfonate 15 gm/60 ml WILLIE) Shake well before use. (Same as: Kayexalate, SPS) duloxetine 60 mg, 1 No Longer cap, Route: Active 2016 [facility] PO, Drug form: DRC, Daily, Dosing Weight 80.9, kg, Start date: 08/09/17 9:00:00 CDT, Duration: 30 day, Stop date: 09/07/17 9:00:00 CSTNotes: (Same as: Cymbalta) (Do Not Crush) gabapentin 300 mg, 1 No Longer cap, Route: Active 2016 [facility] PO, Drug form: CAP, Daily, Dosing Weight 80.9, kg, Start date: 08/09/17 9:00:00 CDT, Duration: 30 day, Stop date: 09/07/17 9:00:00 CSTNotes: (Same as: Neurontin) Levemir 25 unit, No Longer Route: Active 2016 [facility] SUB-Q, QAM (Insulin), Dosing Weight 80.9, kg, Start date: 08/09/17 7:30:00 CDT, Duration: 30 day, Stop date: 09/07/17 7:30:00 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 Expires in days from __Date gabapentin 300 300 mg, 1 No Longer MG Oral Capsule cap, Route: Active 2016 [facility] PO, Drug form: CAP, Q8H, Dosing Weight 80.9, kg, (CrCl > 60 ml/min), Start date: 08/09/17 0:00:00 CDT, Duration: 30 day, Stop date: 09/07/17 16:00:00 CSTNotes: (Same as: Neurontin) gabapentin 300 300 mg=1 Active MG Oral Capsule cap, PO, 2016 TID, # 90 cap, 0 Refill(s) levothyroxine 50 Active 50 mcg (0.05 microgram=1 2016 mg) oral tablet tab, PO, Daily, # 30 tab, 0 Refill(s) Metformin 500 mg, PO, Active BID, 0 2016 Refill(s) pentoxifylline 400 mg=1 Active 400 mg oral tab, PO, 2016 [facility] tablet, BID, 0 extended Refill(s) release aspirin 81 mg 81 mg=1 tab, No Longer tablet, enteric PO, Daily, # Active 2016 [facility] coated 90 tab, 3 Refill(s) insulin 24 unit, No Longer glargine 0.24 mL, Active 2016 Route: SUB-Q, Drug form: INJ, Bedtime, Start date: 08/08/17 22:08:00 CDT, Stop date: 09/07/17 21:00:00 CSTNotes: Same as Frances Skinner PEN Do not hold insulin without contacting prescriber "single patient use only" WASTE: F/P - Black; E - Municipal Trash Bin Stable for 28 days at room temperature. 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 Expires in days from __Date Glucagon 1 mg, Route: No Longer IM, Drug Active 2016 [facility] form: PDR/INJ, PRN, Dosing Weight 80.9, kg, PRN Blood Glucose Results, Start date: 08/08/17 20:01:00 CDT, Duration: 30 day, Stop date: 09/07/17 19:00:00 MANAGER OF [employer] Dextrose 50% 12.5 gm, 25 No Longer Syringe mL, Route: Active 2016 [facility] IVP, Drug Form: INJ, Dosing Weight 80.9, kg, PRN, PRN Blood Glucose Results, Start date: 08/08/17 20:01:00 CDT, Duration: 30 day, Stop date: 09/07/17 19:00:00 [employer]NAGER [employer] Acetaminophen 1 tab, No Longer 325 MG / Route: PO, Active 2016 [facility] Hydrocodone Drug Form: Bitartrate 10 TAB, Dosing MG Oral Tablet Weight 80.9, [[place] 10/325] kg, Q4H, PRN Pain Score 4-6, Start date: 08/08/17 14:39:00 CDT, Duration: 30 day, Stop date: 09/07/17 14:38:00 CSTNotes: Do not exceed 4gm/day of acetaminophe n. (Same as: [place] 325/10) Dilaudid 0.5 mg, 0.5 No Longer 10// MH mL, Route: Active 2016 [facility] IVP, Drug form: INJ, Q4H, Dosing Weight 80.9, kg, PRN Pain Score 7-10, Start date: 08/08/17 14:39:00 CDT, Duration: 30 day, Stop date: 09/07/17 14:38:00 MANAGER OF [employer] Omnipaque 350 100 mL, Inactive MH injectable Route: IVP, 2016 [facility] solution Drug Form: SOLN, Dosing Weight 80.9, kg, ONCALL, For CTA exam with GFR > 45 mL/min, STAT, Start date: 08/08/17 13:10:00 CDT, Duration: 1 doses or timesNotes: (same as:Omnipaque 350). WASTE: F/P - Black; E - Municipal Trash Bin Lovenox 30 mg, 0.3 No Longer 10// MH mL, Route: Active 2016 [facility] SUB-Q, Drug form: INJ, [id number], Dosing Weight 80.9, kg, Start date: 08/08/17 12:00:00 CDT, Duration: 30 day, Stop date: 09/07/17 0:00:00 CSTNotes: (Same as: Lovenox) sodium chloride 1,000 mL, No Longer 10/ MH 0.9% 1000 ml Rate: 125 Active 2016 [facility] INJ 1,000 mL ml/hr, Infuse over: 8 hr, Route: IV, Dosing Weight 80.9 kg, Total Volume: 1,000, Start date: 08/08/17 9:39:00 CDT, Duration: 30 day, Stop date: 09/07/17 9:38:00 MANAGER OF [employer] Saline Flush 10 ml, No Longer 10// MH 0.9% Route: IVP, Active 2016 [facility] Drug Form: INJ, kg, Q12H, Start date: 08/08/17 9:00:00 CDT, Duration: 30 day, Stop date: 09/06/17 21:00:00 CSTNotes: (Same as: BD Posiflush) Sodium Chloride 1,000 mL, Inactive 08/08/ MH 0.9% (Bolus) IV 1,000 ml/hr, 2016 [facility] Infuse Over: 1 hr, Route: IV, 1,000, Drug form: INJ, ONCE, Priority: STAT, Dosing Weight 80.9 kg, Start date: 08/08/17 5:42:00 CDT, Duration: 1 doses or times, Stop date: 08/08/17 5:42:00 CDT Levemir 30, SUB-Q, Active QPM, 0 2016 [facility] Refill(s) Aspirin 81 mg, PO, Active Daily, 0 2016 [facility] Refill(s) Metformin 500 mg, PO, No Longer Daily, 0 Active 2016 [facility] Refill(s) pioglitazone 15 mg, PO, Active Daily, 0 2016 [facility] Refill(s) Lisinopril 5 mg, PO, Active Daily, 0 2016 [facility] Refill(s) gabapentin 300 mg, PO, Inactive Daily, 0 2016 [facility] Refill(s) duloxetine 60 mg, PO, Active Daily, 0 2016 [facility] Refill(s) Sodium Chloride 1,000 mL, Inactive 0.9% (Bolus) IV Route: IV, 2016 ONCE, Dosing Weight 80.9 kg, Start date: 08/08/17 3:13:00 CDT, Stop date: 08/08/17 3:13:00 CDT aspirin 81 mg 81 mg, 1 No Longer tablet, enteric tab, Route: Active 2016 [facility] coated PO, Drug form: ECTAB, Daily, kg, Start date: 08/08/17 0:10:00 CDT, Duration: 30 day, Stop date: 09/06/17 9:00:00 CSTNotes: Do not crush or chew. (Same As: Ecotrin) Saline Flush 10 ml, No Longer 0.9% Route: IVP, Active 2016 [facility] Drug Form: INJ, kg, PRN, PRN Line Flush, Start date: 08/07/17 23:57:00 CDT, Duration: 30 day, Stop date: 09/06/17 22:56:00 CSTNotes: (Same as: BD Posiflush) Acetaminophen 650 mg, 2 No Longer tab, Route: Active 2016 [facility] PO, Drug form: TAB, Q4H, kg, PRN Pain 1-3/Temp > 99.5 F, Start date: 08/07/17 23:57:00 CDT, Duration: 30 day, Stop date: 09/06/17 23:56:00 CSTNotes: Do not exceed 4 gm/day. (Same as: Tylenol) Labetalol 10 mg, 2 mL, No Longer Route: IVP, Active 2016 [facility] Drug form: INJ, Q10Min, kg, PRN Hypertension , For SBP > 180 mmHg and/or DBP > 105 mmHg, Priority: Routine, Start date: 08/07/17 23:57:00 CDT, Duration: 30 day, Stop date: 09/06/17 22:56:00 CSTNotes: (Same as: Normodyne, Trandate) Push over 2 minutes Give bolus over 2-3 minutes. pioglitazone 1 tab(s) orally Active 30 mg orally [place] eCW: Trent once a day [place] tramadol 1 tab(s) orally Active 50 mg orally 2 [place] eCW: [place] TIMES A DAY [place] prednisone 1 tab(s) orally Active 5 mg orally [place] eCW: [place] once a day [place] Enbrel as directed subcutane Active 25 mg [place] eCW: [place] ously subcutaneously [place] once a week Lantus Solostar 20 units subcutane Active 100 units/ml [place] eCW: [place] Pen ously subcutaneously [place] daily in PM gabapentin 1 cap(s) orally Active 400 mg orally 3 [place] eCW: [place] times a day [place] methotrexate 1ml subcutane Active 25 mg/0.4 mL [place] eCW: [place] ously subcutaneously [place] once a week Cymbalta 1 cap(s) orally Active 60 mg orally [place] eCW: [place] once a day [place] lisinopril 1 tab(s) orally Active 5 mg orally [place] eCW: [place] once a day [place] metformin 2 tabs orally Active 500 mg orally 2 [place] eCW: [place] times a day [place] atorvastatin 1 tab(s) orally Active 10 mg orally [place] eCW: [place] once a day [place] Lantus Solostar 15 units subcutane Active 100 units/ml [place] eCW: [place] Pen ously subcutaneously [place] daily in PM One Touch Verio as directed NA Active - [place] eCW: Trent Gold Test [place] Strips metformin 2 tabs orally Active 500 mg orally 2 [place] eCW: [place] times a day [place] Humalog KwikPen ldss subcutane Active 100 units/mL [place] eCW: [place] ously subcutaneously [place] ACTID prn BG >200 pioglitazone 1 tab(s) orally Active 30 mg orally [place] eCW: Trent once a day [place] Allergies, Adverse Reactions, Alerts Substance Category Reaction Severity Reaction Status Date Comments Source type Reported Phenergan Adverse Info Not Adverse Active eCW: Trent Reaction Available Reaction 9 [place] Prevacid Assertion Drug Active allergy Medical Group Immunizations No Data Provided for This Section Results Order Name Results Value Reference Date Interpretation Comments Source Range CHEM PANEL eGFR 64 08/22 Result Comment: [facility] eGFR is calculated using the CKD-EPI formula. In most young, healthy individuals the eGFR will be >90 mL/min/1.73m2 . The eGFR declines with age. An eGFR of 60-89 may be normal in some populations, particularly the elderly, for whom the CKD-EPI formula has not been extensively validated. Use of the eGFR is not recommended in the following populations:< br/>
Maura viduals with unstable creatinine concentration s, including patients and those with serious co-morbid conditions.<b r/>
Patie nts with extremes in muscle mass or diet.

The data above are obtained from the National Kidney Disease Education Program (NKDEP) which additionally recommends that when the eGFR is used in patients with extremes of body mass index for purposes of drug dosing, the eGFR should be multiplied by the estimated BMI. CHEM PANEL Sodium Lvl 136 135 - 145 08/22 [facility] CHEM PANEL Creatinine 1.00 0.50 - 08/22 MH Lvl 1.40 [facility] CHEM PANEL Calcium Lvl 8.7 8.5 - 10.5 08/22 [facility] CHEM PANEL CO2 25 24 - 32 08/22 [facility] CHEM PANEL Chloride Lvl 101 95 - 109 08/22 [facility] CHEM PANEL Potassium 5.0 3.5 - 5.1 08/22 MH Lvl /2016 [facility] CHEM PANEL BUN 19 7 - 22 08/22 [facility] CHEM PANEL Glucose Lvl 63 70 - 99 08/22 [facility] CHEM PANEL AGAP 15.0 10.0 - 08/22 MH 20.0 [facility] HEMATOLOGY Lymphocytes 2.4 1.0 - 5.5 08/22 MH # /2017 [facility] HEMATOLOGY Eosinophils 0.7 0.0 - 0.5 08/22 MH # /2016 [facility] HEMATOLOGY Monocytes # 1.6 0.0 - 0.8 08/22 [facility] HEMATOLOGY Monocytes 10.8 2.0 - 12.0 08/22 [facility] HEMATOLOGY Segs-Bands # 9.6 1.5 - 8.1 08/22 [facility] HEMATOLOGY Eosinophils 4.6 0.0 - 4.0 08/22 [facility] HEMATOLOGY Basophils 1.1 0.0 - 1.0 08/22 [facility] HEMATOLOGY Basophils # 0.2 0.0 - 0.2 08/22 [facility] HEMATOLOGY Lymphocytes 16.5 20.0 - 08/22 MH 40.0 [facility] HEMATOLOGY Segs 67.0 45.0 - 08/22 MH 75.0 [facility] HEMATOLOGY Hct 26.5 36.0 - 08/22 MH 48.0 [facility] HEMATOLOGY Hgb 8.5 12.0 - 08/22 MH 16.0 [facility] HEMATOLOGY RBC 2.96 4.20 - 08/22 MH 5.40 /2016 [facility] HEMATOLOGY MCV 89.8 80.0 - 08/22 MH 98.0 [facility] HEMATOLOGY Platelet 436 133 - 450 08/22 [facility] HEMATOLOGY MPV 9.3 7.4 - 10.4 08/22 [facility] HEMATOLOGY RDW 13.5 11.5 - 08/22 MH 14.5 [facility] HEMATOLOGY MCHC 32.0 32.0 - 08/22 MH 36.0 [facility] HEMATOLOGY MCH 28.7 27.0 - 08/22 MH 31.0 [facility] HEMATOLOGY WBC 14.4 3.7 - 10.4 08/22 [facility] CHEM PANEL eGFR 57 08/21 Comment: [facility] eGFR is calculated using the CKD-EPI formula. In most young, healthy individuals the eGFR will be >90 mL/min/1.73m2 . The eGFR declines with age. An eGFR of 60-89 may be normal in some populations, particularly the elderly, for whom the CKD-EPI formula has not been extensively validated. Use of the eGFR is not recommended in the following populations:< br/>
Maura viduals with unstable creatinine concentration s, including patients and those with serious co-morbid conditions.<b r/>
Patie nts with extremes in muscle mass or diet.

The data above are obtained from the National Kidney Disease Education Program (NKDEP) which additionally recommends that when the eGFR is used in patients with extremes of body mass index for purposes of drug dosing, the eGFR should be multiplied by the estimated BMI. CHEM PANEL Glucose Lvl 79 70 - 99 08/21 [facility] CHEM PANEL BUN 22 7 - 22 08/21 [facility] CHEM PANEL Potassium 5.0 3.5 - 5.1 08/21 MH Lvl /2016 [facility] CHEM PANEL Creatinine 1.10 0.50 - 08/21 MH Lvl 1.40 [facility] CHEM PANEL Sodium Lvl 131 135 - 145 08/21 [facility] CHEM PANEL Chloride Lvl 98 95 - 109 08/21 [facility] CHEM PANEL Calcium Lvl 8.4 8.5 - 10.5 08/21 [facility] CHEM PANEL AGAP 13.0 10.0 - 08/21 MH 20.0 [facility] CHEM PANEL CO2 25 24 - 32 08/21 [facility] HEMATOLOGY Platelet 360 133 - 450 08/21 [facility] HEMATOLOGY MPV 10.3 7.4 - 10.4 08/21 [facility] HEMATOLOGY MCHC 32.9 32.0 - 08/21 MH 36.0 [facility] HEMATOLOGY RDW 13.3 11.5 - 08/21 MH 14.5 [facility] HEMATOLOGY Hct 25.1 36.0 - 08/21 MH 48.0 2017 [facility] HEMATOLOGY MCH 29.4 27.0 - 08/21 MH 31.0 [facility] HEMATOLOGY MCV 89.6 80.0 - 08/21 MH 98.0 [facility] HEMATOLOGY RBC 2.81 4.20 - 10 MH 5.40 [facility] HEMATOLOGY Hgb 8.3 12.0 - 08/21 MH 16.0 [facility] HEMATOLOGY WBC 14.8 3.7 - 10.4 08/21 [facility] HEMATOLOGY Segs-Bands # 10.8 1.5 - 8.1 08/21 [facility] HEMATOLOGY Lymphocytes 1.8 1.0 - 5.5 08/21 [facility] HEMATOLOGY Monocytes # 1.5 0.0 - 0.8 08/21 [facility] HEMATOLOGY Eosinophils 0.7 0.0 - 0.5 08/21 [facility] HEMATOLOGY Eosinophils 4.9 0.0 - 4.0 08/21 [facility] HEMATOLOGY Monocytes 9.9 2.0 - 12.0 08/21 [facility] HEMATOLOGY Basophils 0.7 0.0 - 1.0 08/21 [facility] HEMATOLOGY RBC Morph Normal 08/21 (08/21/17 3:57 AM) [facility] HEMATOLOGY Segs 72.5 45.0 - 08/21 75.0 [facility] HEMATOLOGY Plt Morph Normal 08/21 (08/21/17 3:57 AM) [facility] Lymphocytes 12.0 20.0 - 08/21 MH 40.0 [facility] HEMATOLOGY Basophils # 0.1 0.0 - 0.2 08/21 [facility] CHEM PANEL eGFR 52 08/20 Comment: [facility] eGFR is calculated using the CKD-EPI formula. In most young, healthy individuals the eGFR will be >90 mL/min/1.73m2 . The eGFR declines with age. An eGFR of 60-89 may be normal in some populations, particularly the elderly, for whom the CKD-EPI formula has not been extensively validated. Use of the eGFR is not recommended in the following populations:< br/>
Maura viduals with unstable creatinine concentration s, including patients and those with serious co-morbid conditions.<b r/>
Patie nts with extremes in muscle mass or diet.

The data above are obtained from the National Kidney Disease Education Program (NKDEP) which additionally recommends that when the eGFR is used in patients with extremes of body mass index for purposes of drug dosing, the eGFR should be multiplied by the estimated BMI. CHEM PANEL Potassium 5.0 3.5 - 5.1 08/20 Lvl [facility] CHEM PANEL Sodium Lvl 131 135 - 145 08/20 [facility] CHEM PANEL CO2 26 24 - 32 08/20 [facility] CHEM PANEL Calcium Lvl 8.5 8.5 - 10.5 08/20 [facility] CHEM PANEL Chloride Lvl 95 95 - 109 08/20 [facility] CHEM PANEL Creatinine 1.20 0.50 - 08/20 MH Lvl 1.40 [facility] CHEM PANEL BUN 23 7 - 22 08/20 [facility] CHEM PANEL Glucose Lvl 132 70 - 99 08/20 [facility] CHEM PANEL AGAP 15.0 10.0 - 08/20 MH 20.0 [facility] HEMATOLOGY WBC 17.1 3.7 - 10.4 08/20 [facility] HEMATOLOGY Hgb 8.4 12.0 - 08/20 16.0 [facility] HEMATOLOGY RBC 2.77 4.20 - 08/20 5.40 [facility] HEMATOLOGY Hct 24.8 36.0 - 08/20 48.0 [facility] HEMATOLOGY MCV 89.4 80.0 - 08/20 98.0 [facility] HEMATOLOGY MCH 30.3 27.0 - 08/20 31.0 [facility] HEMATOLOGY MCHC 33.8 32.0 - 08/20 36.0 [facility] HEMATOLOGY Platelet 354 133 - 450 08/20 [facility] HEMATOLOGY MPV 10.1 7.4 - 10.4 08/20 [facility] HEMATOLOGY RDW 13.3 11.5 - 08/20 14. [facility] HEMATOLOGY Basophils # 0.1 0.0 - 0.2 08/20 [facility] HEMATOLOGY Monocytes # 1.3 0.0 - 0.8 08/20 [facility] HEMATOLOGY Eosinophils 0.6 0.0 - 0.5 08/20 /2016 [facility] HEMATOLOGY Segs-Bands # 13.0 1.5 - 8.1 08/20 [facility] HEMATOLOGY Eosinophils 3.7 0.0 - 4.0 08/20 [facility] HEMATOLOGY Lymphocytes 2.1 1.0 - 5.5 08/20 [facility] HEMATOLOGY Basophils 0.3 0.0 - 1.0 08/20 [facility] HEMATOLOGY Monocytes 7.6 2.0 - 12.0 08/20 [facility] HEMATOLOGY Segs 76.1 45.0 - 08/20 MH 75.0 [facility] HEMATOLOGY Lymphocytes 12.3 20.0 - 08/20 40.0 [facility] URINE AND UA <=1.0 0.1 - 1.0 08/18 STOOL Urobilinogen /2016 [facility] URINE AND UA Color Yellow 08/18 STOOL [facility] URINE AND UA RBC 1 0 - 2 08/18 STOOL [place] URINE AND UA Mucus Few /LPF None Seen 08/18 STOOL /LPF [facility] URINE AND UA Bacteria Occasional None Seen 08/18 STOOL /HPF /HPF [facility] URINE AND UA WBC 169 0 - 5 08/18 STOOL [place] URINE AND UA Blood Moderate Negative 08/18 STOOL *ABN* /2016 [facility] (08/18/17 6:02 AM) URINE AND UA Sq Epi Occasional Few /LPF 08/18 STOOL /LPF [facility] URINE AND UA Nitrite Negative Negative 08/18 STOOL (08/18/17 6:02 AM) [facility] URINE AND UA Leuk Est Large Negative 08/18 STOOL *ABN* /2016 [facility] (08/18/17 6:02 AM) URINE AND UA Bili Negative Negative 08/18 STOOL *NA* /2016 [facility] (08/18/17 6:02 AM) URINE AND UA Turbidity Marked Clear 08/18 STOOL *ABN* /2016 [facility] (08/18/17 6:02 AM) URINE AND UA pH 5.0 5.0 - 8.0 08/18 STOOL [facility] URINE AND UA Protein 30 mg/dL Negative 08/18 STOOL mg/dL [facility] URINE AND UA Spec Grav 1.005 <=1.030 08/18 STOOL [facility] URINE AND UA Glucose Negative Negative 08/18 STOOL mg/dL mg/dL [facility] URINE AND UA Ketones Trace Negative 08/18 STOOL mg/dL mg/dL [facility] BLOOD BANK Antibody Negative 08/13 RESULTS Scrn (08/13/17 5:56 AM) /2016 [facility] BLOOD BANK ABO/Rh A POS 08/13 RESULTS /2016 [facility] HEMATOLOGY PT 13.2 12.0 - 08/13 MH 14. [facility] HEMATOLOGY PTT 26.7 22.9 - 08/13 MH 35.8 [facility] HEMATOLOGY INR 0.98 0.85 - 08/13 MH 1.17 [facility] HEMATOLOGY PT 13.2 12.0 - 10/15 MH 14.7 [facility] HEMATOLOGY PTT 31.3 22.9 - 08/12 MH 35.8 /2016 [facility] HEMATOLOGY INR 0.98 0.85 - 08/12 MH 1.17 [facility] CHEM PANEL ALT 43 0 - 65 08/10 [facility] CHEM PANEL Alk Phos 84 39 - 136 08/10 [facility] CHEM PANEL Bili Total 0.5 0.2 - 1.3 08/10 [facility] CHEM PANEL AST 58 0 - 37 08/10 [facility] CHEM PANEL Total 6.6 6.4 - 8.4 08/10 Protein [facility] CHEM PANEL Albumin Lvl 2.7 3.5 - 5.0 08/10 [facility] CHEM PANEL Globulin 3.9 2.7 - 4.2 08/10 [facility] CHEM PANEL B/C Ratio 25 6 - 25 08/10 [facility] CHEM PANEL A/G Ratio 0.7 0.7 - 1.6 08/10 [facility] HEMATOLOGY INR 0.95 0.85 - 08/10 1. [facility] HEMATOLOGY PTT 26.4 22.9 - 08/10 35.8 [facility] HEMATOLOGY PT 12.9 12.0 - 08/10 14.7 [facility] SPECIAL Hgb A1C 6.8 <=5.6 % 08/09 CHEMISTRY /2016 [facility] URINE AND UA <=1.0 0.1 - 1.0 08/09 STOOL Urobilinogen /2016 [facility] URINE AND UA Glucose 50 08/09 STOOL [facility] URINE AND UA WBC 1 0 - 5 08/09 STOOL [facility] URINE AND UA RBC 2 0 - 2 08/09 STOOL [facility] URINE AND UA Sq Epi Occasional Few /LPF 08/09 STOOL /LPF /2016 [facility] URINE AND UA Bacteria Few /HPF None Seen 08/09 STOOL /HPF /2016 [facility] URINE AND UA Color Ltyellow 08/09 STOOL [facility] URINE AND UA Mucus Few /LPF None Seen 08/09 STOOL /LPF [facility] URINE AND UA Leuk Est Negative Negative 08/09 STOOL (08/09/17 2:22 AM) [facility] URINE AND UA Bili Negative Negative 08/09 STOOL *NA* /2016 [facility] (08/09/17 2:22 AM) URINE AND UA Nitrite Negative Negative 08/09 STOOL (08/09/17 2:22 AM) [facility] URINE AND UA Blood Small Negative 08/09 STOOL *ABN* /2016 [facility] (08/09/17 2:22 AM) URINE AND UA Turbidity Clear Clear 08/09 STOOL (08/09/17 2:22 AM) [facility] URINE AND UA Ketones Negative Negative 08/09 STOOL mg/dL mg/dL [facility] URINE AND UA Spec Grav 1.019 <=1.030 08/09 STOOL [facility] URINE AND UA Protein 30 mg/dL Negative 08/09 STOOL mg/dL [facility] URINE AND UA pH 5.0 5.0 - 8.0 08/09 STOOL [facility] CARDIAC Troponin-I 0.03 0.00 - 08/08 ENZYMES 0.40 [facility] CARDIAC CK MB Index 2.0 0.0 - 2.5 08/08 ENZYMES [facility] CARDIAC CK MB 2.4 0.5 - 3.6 08/08 ENZYMES [facility] CARDIAC Troponin-I 0.02 0.00 - 08/08 ENZYMES 0.40 [facility] CARDIAC Total CK 119 12 - 191 08/08 ENZYMES [facility] CARDIAC CK MB Index 2.0 0.0 - 2.5 08/08 ENZYMES [facility] CARDIAC CK MB 2.8 0.5 - 3.6 08/08 ENZYMES [facility] CARDIAC Total CK 141 12 - 191 08/08 ENZYMES [facility] CARDIAC Troponin-I 0.03 0.00 - 08/08 ENZYMES 0.40 [facility] BACTERIAL MRSA by PCR Negative 08/08 - SEROLOGY (08/08/17 12:41 AM) [facility] CHEM PANEL Bili Total 0.6 0.2 - 1.3 08/08 [facility] CHEM PANEL Alk Phos 80 39 - 136 08/08 [facility] CHEM PANEL AST 21 0 - 37 08/08 [facility] CHEM PANEL Total 7.1 6.4 - 8.4 08/08 Protein [facility] CHEM PANEL ALT 27 0 - 65 08/08 [facility] CHEM PANEL Albumin Lvl 3.3 3.5 - 5.0 08/08 [facility] CHEM PANEL A/G Ratio 0.9 0.7 - 1.6 08/08 [facility] CHEM PANEL B/C Ratio 26 6 - 25 08/08 [facility] CHEM PANEL Globulin 3.8 2.7 - 4.2 08/08 [facility] CHEM PANEL Phosphorus 3.5 2.5 - 4.5 08/08 [facility] CHEM PANEL Magnesium 2.3 1.8 - 2.4 08/08 Lvl [facility] CHEM PANEL Bili Direct 0.1 0.0 - 0.3 08/08 [facility] IMMUNOLOGY RPR Non Reactive Non 08/08 (08/08/17 12:41 AM) Reactive /2016 [facility] IMMUNOLOGY Treponemal Reactive Non 08/08 Scr *ABN* Reactive /2016 [facility] (08/08/17 12:41 AM) IMMUNOLOGY T pallidum Reactive Non 08/08 Ab *ABN* Reactive /2016 [facility] (08/08/17 12:41 AM) LIPIDS CHD Risk 3.58 3.90 - 08/08 5.80 /2016 [facility] LIPIDS LDL 114 <=99 mg/dL 08/08 (Calculated) [facility] LIPIDS VLDL 28 08/08 [facility] LIPIDS Chol 197 <=199 08/08 mg/dL [facility] LIPIDS Trig 142 <=149 08/08 mg/dL [facility] LIPIDS HDL 55 >=61 mg/dL 08/08 [facility] PARATHYROI Ca Norm WB 1.10 1.05 - 08/08 D PROFILE . [facility] PARATHYROI Ca Ion WB 1.14 1.05 - 08/08 D PROFILE . [facility] SPECIAL Hgb A1C 6.7 <=5.6 % 08/08 CHEMISTRY [facility] Pathology Reports No Data Provided for This Section Diagnostic Reports Report Value Date Source Ext Lower Arterial Doppler Clinical Indication: E11.65 Type 2 diabetes mellitus with hyperglycemia - E11.65 Type 2 diabetes mellitus with hyperglycemia 02/10/2019 OPID [facility] bilat US Comparison: None TECHNIQUE: Bilateral lower extremity arterial Doppler evaluation without pressures was performed with edgar scale, color scale and Doppler waveforms evaluation. FINDINGS: RIGHT LOWER EXTREMITY: There are normal triphasic waveforms and peak systolic velocities of the right external iliac, common femoral artery, superficial femoral artery, popliteal artery, posterior tibial artery, and dorsalis pedis artery. LEFT LOWER EXTREMITY: There are normal triphasic waveforms and peak systolic velocities of the left external iliac, common femoral artery, superficial femoral artery, popliteal artery, posterior tibial artery, and dorsalis pedis artery. There is no arterial Doppler evidence of significant peripheral arterial occlusive disease. If there is further concern recommend CTA or magnetic resonance angiography for evaluation. IMPRESSION: Unremarkable bilateral lower extremity arterial Doppler examination. SL: [id number] Retroperitoneal Complete PROCEDURE: RENAL ULTRASOUND 08/12/2018 [facility] INDICATION: Chronic kidney disease, stage III, moderate. COMPARISON: 08/08/2017 CTA abdomen TECHNIQUE: Sonographic evaluation [...] partially visualized. IMPRESSION: Normal renal ultrasound. 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 2. Multilevel degenerative changes as above. Spine cervical 2 or 3 view 4 VIEW CERVICAL SPINE 08/16/2017 [facility] DX HISTORY: Cervical pain. COMPARISON: No relevant priors available. Facet screws [...] explain this finding. END IMPRESSION SL: CL70-M Chest/Abd/Pelvis CTA CTA THORAX, ABDOMEN, PELVIS 08/08/2017 [facility] HISTORY: ; - rule out dissection, 95ml [id number] given, dlp 1023.8mGycm; bilateral lower extremity weakness TECHNIQUE: Thin collimation angiographic axial images of [...] probable hysterectomy, and postoperative lumbar spine. SL: CHARY-PC Spine entire wo contrast MRI ENTIRE SPINE WITHOUT CONTRAST 08/08/2017 [facility] MRI HISTORY: Bilat LE weakness - Bilat LE weakness; COMPARISON: None available. TECHNIQUE: Multiplanar T1, T2, [...] foraminal narrowing is noted at L4/L5. SL: KELY Consultation Notes No Data Provided for This Section Discharge Summaries No Data Provided for This Section History and Physicals No Data Provided for This Section Vital Signs Vital Sign Value Date Comments Source Weight 183 05/29/2019 eCW: Trent Neely Height 62 05/29/2019 eCW: Trent Florinda Temperature Oral (F) 97.6 F 05/29/2019 eCW: Trent Neely Diastolic (mm Hg) 76 05/29/2019 eCW: [place] Neely Systolic (mm Hg) 106 05/29/2019 eCW: [place] Neely BMI Calculated 34.84 05/29/2019 [facility] Weight 83.636 05/29/2019 [facility] Temperature Oral (F) 98.7 F 05/29/2019 [facility] Heart Rate 87 05/29/2019 [facility] Systolic (mm Hg) 123 05/29/2019 [facility] Diastolic (mm Hg) 80 05/29/2019 [facility] Height 154.94 cm 05/29/2019 [facility] Respitory Rate 16 05/29/2019 [facility] Height 154.94 cm 04/18/2019 [facility] Systolic (mm Hg) 161 04/18/2019 [facility] Diastolic (mm Hg) 83 04/18/2019 [facility] Temperature Oral (F) 97.7 F 04/18/2019 [facility] Heart Rate 82 04/18/2019 [facility] BMI Calculated 36.35 04/18/2019 [facility] Weight 87.273 04/18/2019 [facility] Weight 186 02/28/2019 eCW: [place] Neely Height 62 02/28/2019 eCW: [place] Neely Diastolic (mm Hg) 86 02/28/2019 eCW: [place] Neely Systolic (mm Hg) 131 02/28/2019 eCW: [place] Neely Weight 186 01/28/2019 eCW: Trent Neely Height 62 01/28/2019 eCW: Trent Florinda Diastolic (mm Hg) 71 01/28/2019 eCW: Trent Neely Systolic (mm Hg) 118 01/28/2019 eCW: Trent Neely BMI Calculated 36.92 01/14/2019 [facility] Weight 88.636 01/14/2019 [facility] Height 154.94 cm 01/14/2019 [facility] Temperature Oral (F) 98.6 F 01/14/2019 [facility] Heart Rate 85 01/14/2019 [facility] Systolic (mm Hg) 125 01/14/2019 [facility] Diastolic (mm Hg) 78 01/14/2019 [facility] BMI Calculated 35.6 11/28/2018 [facility] Weight 85.455 11/28/2018 [facility] Height 154.94 cm 11/28/2018 [facility] Temperature Oral (F) 97.7 F 11/28/2018 [facility] Heart Rate 87 11/28/2018 [facility] Systolic (mm Hg) 112 11/28/2018 [facility] Diastolic (mm Hg) 77 11/28/2018 [facility] Height 154.94 cm 10/16/2018 [facility] Weight 81.818 10/16/2018 [facility] BMI Calculated 34.08 10/16/2018 [facility] Heart Rate 112 10/16/2018 [facility] Temperature Oral (F) 98.4 F 10/16/2018 [facility] Systolic (mm Hg) 129 10/16/2018 [facility] Diastolic (mm Hg) 85 10/16/2018 [facility] Weight 82.727 07/15/2018 [facility] BMI Calculated 34.46 07/15/2018 [facility] Systolic (mm Hg) 145 07/15/2018 [facility] Diastolic (mm Hg) 86 07/15/2018 [facility] Temperature Oral (F) 98.4 F 07/15/2018 [facility] Height 154.94 cm 07/15/2018 [facility] Heart Rate 81 07/15/2018 [facility] BMI Calculated 33.89 07/02/2018 [facility] Weight 81.364 07/02/2018 [facility] Height 154.94 cm 07/02/2018 [facility] Systolic (mm Hg) 131 07/02/2018 [facility] Diastolic (mm Hg) 83 07/02/2018 [facility] Heart Rate 98 07/02/2018 [facility] Temperature Oral (F) 98.4 F 07/02/2018 [facility] Weight 82.273 06/17/2018 [facility] BMI Calculated 33.17 06/17/2018 [facility] Height 157.48 cm 06/17/2018 [facility] Systolic (mm Hg) 133 06/17/2018 [...] 05/30/2018 [facility] BMI Calculated 32.84 04/24/2018 [facility] Weight 81.449 04/24/2018 [facility] Height 157.48 cm 04/24/2018 [facility] Temperature Oral (F) 97.9 F 04/24/2018 [facility] Heart Rate 94 04/24/2018 [facility] Systolic (mm Hg) 100 04/24/2018 [facility] Diastolic (mm Hg) 66 04/24/2018 [facility] BMI Calculated 30.8 10[facility]17/2017 [facility] Weight 76.392 10/17/2017 [facility] Height 157.48 cm 10/17/2017 [facility] Temperature Oral (F) 97.5 F 10/17/2017 [facility] Heart Rate 99 10/17/2017 [facility] Systolic (mm Hg) 139 10/17/2017 [facility] Diastolic (mm Hg) 80 10/17/2017 [facility] BMI Calculated 31.57 09/19/2017 [facility] Weight 78.295 09/19/2017 [facility] Height 157.48 cm 09/19/2017 [facility] Heart Rate 103 09/19/2017 [facility] Neuro Temperature Oral (F) 98.2 F 09/19/2017 [facility] Systolic (mm Hg) 118 09/19/2017 [facility] Diastolic (mm Hg) 68 09/19/2017 [facility] Respitory Rate 18 08/22/2017 [facility] Temperature Oral (F) 97.5 F 08/22/2017 [facility] Heart Rate 82 08/22/2017 [facility] Systolic (mm Hg) 121 08/22/2017 [facility] Diastolic (mm Hg) 77 08/22/2017 [facility] Systolic (mm Hg) 137 08/22/2017 [facility] Diastolic (mm Hg) 72 08/22/2017 [facility] Heart Rate 71 08/22/2017 [facility] Respitory Rate 20 08/22/2017 [facility] Temperature Oral (F) 97.7 F 08/22/2017 [facility] Systolic (mm Hg) 143 08/22/2017 [facility] Diastolic (mm Hg) 81 08/22/2017 [facility] Respitory Rate 20 08/22/2017 [facility] Heart Rate 86 08/22/2017 [facility] Temperature Oral (F) 97.9 F 08/22/2017 [facility] BMI Calculated 32.62 08/08/2017 [facility] Weight 80.9 08/08/2017 [facility] Height 157.48 cm 08/08/2017 [facility] Encounters Location Location Encounter Encounter Reason Attending ADM DC Status Source Details Type Number For Provider Date Date Visit [facility] Inpatient [id number] Kala 08/08 08/23 Jasen 3 [facility] [id number] [place] 09/03 [facility] Outpatient [id number] [place] 09/19 [facility] 2 [facility]NA Outpatient [id number] 09/19 09/20 [facility] [place] Outpatient [id number] RALLS 10/01 [facility] 1 [facility] MNA Phone [id number] 10/01 10/03 [facility] Message [facility] [place] [facility] Phone [id number] 10/01 10/03 [facility] Message [facility] e [place] [facility] Amb[place] [id number] [place] 10/01 10/01 [facility] Pre-Reg 1 [facility] [place] Outpatient [id number] [place] 10/17 [facility] 3 [place] [facility] Out[facility] [id number] [facility] 10/17 10/18 [facility] 3 An [facility] [place] [facility] [id number] [facility] 11/09 11/09 [facility] 0 [facility] t Rehabilitat ion MNA Phone [id number] 12/04 12/06 [facility] Message Neuro e [facility] Outpt Diag [id number] [place] 12/04 12/05 [facility] 0 [facility] [place] Outpatient [id number] [place] 12/05 Active [facility] 4 [facility]en MNA Ambulatory [id number] 12/05 12/05 [facility] Pre-Reg Neuro e [place] MNA Phone [id number] 04/05 04/07 [facility] Message Neuro e [place] Outpatient [id number] [place] 04/24 Active [facility] 5 [place] MNA Outpatient [id number] 04/24 04/25 [facility] [place] [facility]NA Phone [id number] 04/30 05/02 [facility] Message Neuro e [place] MNA Phone [id number] 05/03 05/05 [facility] Message Neuro e [place] [facility] Phone [id number] 05/07 05/09 Primary Message [facility] MNA Phone [id number] 05/07 05/09 [facility] Message Neuro e [facility] Outpatient [id number] LD [place] 05/14 [facility] [id number] K[place] 05/14 05/15 [facility] 6 Anigh Neuro e [facility] MNA Phone [id number] 05/21 05/23 [facility] Message Neuro e [facility] MNA Phone [id number] 05/22 05/24 [facility] Message Neuro e [facility] Outpatient [id number] LD [place] 05/28 Active [facility] Ambulatory [id number] [place] 05/28 05/28 [facility] Pre-Reg 8 [place] [facility] [place] a MNA Phone [id number] 05/29 05/31 [facility] Message Neuro e [facility] Outpatient [id number] LD [place] 05/30 Active [facility] [place] Outpatient [id number] LD [place] 05/30 Active [facility] Outpatient [id number] Saroj-Leticia 05/30 05/31 [facility] 0 Neuro e [facility] MNA Ambulatory [id number] [place] 05/30 05/30 [facility] Pre-Reg 9 Kat Neuro e [facility] a Outpatient [id number] ILENE 06/17 Active [facility] Outpatient [id number] Ilene 06/17 06/18 [facility] [id number] 06/27 06/29 MH Primary Message [facility] MNA Phone [id number] 06/27 06/29 [facility] Message Neuro e [facility] MNA Phone [id number] 06/27 06/29 [facility] Message Neuro e [facility] Outpatient [id number] ILENE 07/02 Active [facility] 1 [facility] Outpatient [id number] Ilene 07/02 07/03 MH Primary 1 [facility] SMR OP Therapy [id number] Saroj-Leticia 07/08 07/08 MH SMR Marco A Patients 0 [place] [facility] Trace Outpatient [id number] ILENE 07/15 Active [facility] 2 [place] [facility] Outpatient [id number] Ilene 07/15 07/16 MH Primary 2 [facility] Phone [id number] 07/19 07/21 MH Primary Message [facility] Outpt Diag [id number] Ilene 08/12 08/13 MH OPID Outpatient Services 1 [facility] Phone [id number] 08/28 08/30 MH Primary Message Medical Care [facility] Outpatient [id number] Enrique 09/27 09/27 MH Jasen 2 [facility] [id number] ILENE 10/16 Active [facility] 3 [facility] Outpatient [id number] Ilene 10/16 10/17 MH Primary 3 [facility] Outpatient [id number] ILENE 11/28 Active [facility] 5 [facility] Outpatient [id number] Ilene 11/28 11/29 MH Primary 5 [facility] Outpatient [id number] ILENE 01/14 Active [facility] 4 [facility] Outpatient [id number] Ilene 01/14 01/15 MH Primary 4 [facility] Between [id number] 01/17 01/18 MH Primary Visit Medical Care [facility] Between [id number] 01/17 01/18 MH Primary Visit Medical Care [facility] Phone [id number] 01/21 01/23 MH Primary Message Medical Care [facility] Phone [id number] 01/23 01/25 MH Primary Message Medical Care [facility] Phone [id number] 01/24 01/26 MH Primary Message [facility] Phone [id number] 01/24 01/26 Primary Message [facility] Phone [id number] 02/06 02/08 Primary Message [facility] Outpt Diag [id number] [place] 02/10 02/11 [facility] 2 [facility] Phone [id number] 02/28 03/02 Primary Message [facility] Phone [id number] 02/28 03/02 Primary Message [facility] Phone [id number] 03/21 03/23 Primary Message Medical Care [facility] Outpatient [id number] Ilene 04/18 Active [facility] Outpatient [id number] Ilene 04/18 04/19 Primary 6 [facility] Between [id number] 04/23 04/24 Primary Visit [facility] Between [id number] 04/23 04/24 Primary Visit [facility] Outpatient [id number] Ilene 05/29 Active [facility] Outpatient [id number] Ilene 05/29 05/30 Primary 8 [facility] Phone [id number] 06/06 06/08 Gastroenter Message Medical ology Group [facility] Outpatient [id number] Ilene 07/21 Active [facility] [place] Procedures Procedure Code Date Perfomer Comments Source Neck<sup>1</sup> [id number] 08/14/2017 Surgery on Medical neck Group,[facility], OP[facility] SMR [facility] Appendectomy [id number] Medical Group,[facility], [facility] [place], OPID [facility] SMR [facility] Cardiac [id number] Medical catheterization Group,[facility], [facility] [place], OPID [facility] SMR [facility] Hysterectomy [id number] Medical Group,[facility], [facility] [place], OPID 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 Cervical spinal canal stenosis -B/L LE weakness post angiogram in pt with chronic LLE weakness -c/w current meds, steroid, PT/OT, mgnt per neuro and neurosx -Patient is status post cervical decompression Sepsis secondary to Enterobacter UTI Enterobacter UTIresistant to ceftriaxone, switched to ciprofloxacin day 1. Urine culture has been reviewed. Mild encephalopathy secondary to UTIcontinue antibiotics and supportive management Hyponatremia-- resolved HTN - failry controlled on meds DM type 2 uncontrolled-- accucheck as/hs with sliding scale insulin HLD - on lipitor 20 mg Urinary retention -on cflomax Hyperkalemia - resolved GI/DVT ppx - pepcid, Code status--full Dispo - P2P was denied for rehab. SNF pending for carbon--[id number] approval Extracted from:Title: Neuro ICU admit note Author: Jacek Lisa MD Date: 08/08/17 Impression and Plan 52 yo with DM, HTN, abdominal cath yesterday now c/o b/l leg weakness and numbness Imp HTN DM hyperlipidemia peripheral vascular disease acute paraparesis Neuro -leg complaints following a cath with normal arms would suggest spinal cord ischemia, possibly embolic from cath (given no cardiac component, would not suspect embolism to the brain), therefore, this wo uld be the most likely etiology; however, her exam is not consistent with this given that she has numbnes only on the left leg which is the same leg that is weak and the numbness is only on the medial leg; while the numbness may be radicular, the weakness is certainly not radicular; furthermore, she withdraws her legs to pain brisly and can sustain them off the bed at time; -we will get an MRI over her spine to assess for ischema adn will include DWI sequence; i do not suspect -will avoid hypotension, maintain MAPs > 80 -run fluids for perfusion -will continue aspirin adn statin -PT/OT CV hx HTN, will hold lisinopril to optimize spinal cord perfusion pulm on room air GI BM this morning will give bowel regimen renal potassium mildly elevated, will monitor, hold lisinopril heme -okay for [facility] endo -ISS ID -no infectious issues Plan of Care No Data Provided for This Section Social History Social History Date Source Social History TypeResponse 05/29/2019 [facility] Alcohol Never Exercise Exercise duration: 0. Exercise frequency: 1-2 times/week. Exercise type: Walking. Substance Abuse Use: None. Smoking Status Never smoker; Ready to change: No; Concerns about tobacco use in household: No ; Exposure to Tobacco Smoke None; Cigarette Smoking Last 365 Days Unable to obtain; Reg Smoking Cessation Counseling No entered on: 05/29/19 Social History TypeResponse 08/08/2017 [facility] Substance Abuse Use: None. Exercise Exercise duration: 0. Exercise frequency: 1-2 times/week. Exercise type: Walking. Alcohol Never Smoking Status Never smoker; Ready to change: No; Concerns about tobacco use in household: No ; Exposure to Tobacco Smoke None; Cigarette Smoking Last 365 Days Unable to obtain; Reg Smoking Cessation Counseling No entered on: 01/14/19 Social History TypeResponse 08/08/2017 [facility] Substance Abuse Use: None. Exercise Exercise duration: 0. Exercise frequency: 1-2 times/week. Exercise type: Walking. Alcohol Never Smoking Status Never smoker; Ready to change: No; Concerns about tobacco use in household: No ; Exposure to Tobacco Smoke None; Cigarette Smoking Last 365 Days Unable to obtain; Reg Smoking Cessation Counseling No entered on: 01/14/19 Social History TypeResponse 08/08/2017 [facility] Substance Abuse Use: None. Alcohol Never Smoking Status Never smoker; Ready to change: No; Concerns about tobacco use in household: No ; Exposure to Tobacco Smoke None; Cigarette Smoking Last 365 Days Unable to obtain; Reg Smoking Cessation Counseling No entered on: 10/17/17 Social History TypeResponse 08/08/2017 [facility] Substance Abuse Use: None. Exercise Exercise duration: 0. Exercise frequency: 1-2 times/week. Exercise type: Walking. Alcohol Never Smoking Status Never smoker; Ready to change: No; Concerns about tobacco use in household: No ; Exposure to Tobacco Smoke None; Cigarette Smoking Last 365 Days Unable to obtain; Reg Smoking Cessation Counseling No entered on: 01/14/19 Social History TypeResponse 08/08/2017 [facility] Substance Abuse Use: None. Exercise Exercise duration: 0. Exercise frequency: 1-2 times/week. Exercise type: Walking. Alcohol Never Smoking Status Never smoker; Ready to change: No; Concerns about tobacco use in household: No ; Exposure to Tobacco Smoke None; Cigarette Smoking Last 365 Days Unable to obtain; Reg Smoking Cessation Counseling No entered on: 01/14/19 Family History No Data Provided for This Section Advance Directives No Data Provided for This Section Functional Status No Data Provided for This Section
--- OUTSIDE RECORDS SUMMARY | 2019-07-02 21:18 | XMS REPORT | Summary of Care ---
:1965 Author Organization [facility] Primary Care [facility] Address [address], [address] [place] [address]- Care Team Providers Name Role Phone Ilene Arcos Primary Care Physician Encounter HQ Nimaplacido(FIN) [phone] Date(s): 03/21/19 - 03/22/19 [facility] Primary Care [address] [place] [address]- [phone] Vital Signs No data available for this [...]
--- OUTSIDE RECORDS SUMMARY | 2019-07-02 21:18 | XMS REPORT | Summary of Care ---
:1965 Author Organization [facility] Primary Care [facility] Address [address], [address] [place] [address]- Encounter HQ Roshanntr_tess(FIN) [id number] Date(s): 01/17/19 - 01/18/19 [facility] Care [address] [place], [place] [address]- [phone] Vital Signs No data available for this [...]
--- OUTSIDE RECORDS SUMMARY | 2019-07-02 21:18 | XMS REPORT | Summary of Care ---
:1965 Author Organization [facility] Primary Care [facility] Address [address], [address] [place] [address]- Care Team Providers Name Role Phone Ilene Arcos Primary Care Physician Encounter HQ Masonemir(FIN) [phone] Date(s): 04/23/19 - 04/24/19 [facility] Primary Care [address] [place] [address]- [phone] Vital Signs No data available for this section Problem List Condition Effective Dates Status Health Status Informant Accidental fall(Confirmed) Active Acute hyperkalemia(Confirmed) Resolved Acute URI(Confirmed) Resolved Acute UTI(Confirmed) Resolved Back pain(Confirmed) Active Benign essential HTN(Confirmed) Active Fluid retention(Confirmed) Active Chronic back pain(Confirmed) Active Chronic kidney disease, stage Active 3(Confirmed) Chronic pain(Confirmed) Resolved Diabetes(Confirmed) Resolved Diabetic retinopathy(Confirmed) Active Rash(Confirmed) Resolved Impaired mobility and Active ADLs(Confirmed) Left foot [...] Tinea pedis(Confirmed) Active Type 2 diabetes mellitus, Active uncontrolled(Confirmed) Type 2 diabetes mellitus, Resolved controlled(Confirmed) Uncontrolled [...] Reg Smoking Cessation Counseling No entered on: 04/18/19 Assessment and Plan No data available for this section
--- OUTSIDE RECORDS SUMMARY | 2019-07-02 21:18 | XMS REPORT | Summary of Care ---
:1965 Author Organization [facility] Primary Care [facility] Address [address], [address] [place] [address]- Encounter HQ Roshanntr_tess(FIN) [id number] Date(s): 01/17/19 - 01/18/19 [facility] Care [address] [place], [place] [address]- [phone] Vital Signs No data available for this [...]
--- OUTSIDE RECORDS SUMMARY | 2019-07-02 21:18 | XMS REPORT | Summary of Care ---
:1965 Author Organization [facility] Primary Care [facility] Address [address], [address] [place] [address]- Care Team Providers Name Role Phone Ilene Arcos Primary Care Physician Encounter HQ Masonemir(FIN) [phone] Date(s): 04/23/19 - 04/24/19 [facility] Primary Care [address] [place] [address]- [phone] Vital Signs No data available for this [...]
--- OUTSIDE RECORDS SUMMARY | 2019-07-02 21:19 | XMS REPORT | Summary of Care ---
:1965 Author Organization [facility] Primary Care [facility] Address [address], [address] [place] [address]- Care Team Providers Name Role Phone Ilene Arcos Primary Care Physician Encounter HQ Karinetess(BETH) [phone] Date(s): 05/29/19 - 05/29/19 [facility] Primary Care [address] [place] [address]- [phone] Discharge Disposition: Home or Self Care Attending Physician: Ilene Arcos MD Vital Signs Most recent to oldest [Reference Range]: 1 Height 154.94 cm (05/29/19 9:46 AM) Temperature Oral [96.4-99.1 DegF] 98.7 DegF (05/29/19 9:46 AM) Blood Pressure [90-140/60-90 mmHg] 123/80 mmHg (05/29/19 9:46 AM) Respiratory Rate [14-20 BRMIN] 16 BRMIN (05/29/19 9:46 AM) Peripheral Pulse Rate [60-100 bpm] 87 bpm (05/29/19 9:46 AM) Weight 83.636 kg (05/29/19 9:46 AM) Body Mass Index 34.84 m2 (05/29/19 9:46 AM) Problem List Condition Effective Dates Status [...] Active Rheumatoid arthritis(Confirmed) Active Acute rhinitis(Confirmed) Active Screen for colon cancer(Confirmed) Active Simple obesity(Confirmed) Active Cervical stenosis of Active spine(Confirmed) Tinea pedis(Confirmed) Active Type 2 diabetes mellitus, Active uncontrolled(Confirmed) Type 2 diabetes mellitus, Resolved controlled(Confirmed) Uncontrolled type 2 diabetes with Active renal manifestation(Confirmed) Allergies, Adverse Reactions, Alerts Substance Reaction Severity Status Phenergan Active Prevacid Active Medications Tessalon Perles 100 mg oral capsule 100 mg=1 cap, PO, Q8H, PRN cough, do not crush or chew, X 10 day, # 30 cap, 0 Refill(s), Pharmacy: [facility] #[id number] Start Date: 05/29/19 Stop Date: 06/08/19 Status: OrderedZithromax Z-Sage 250 mg oral tablet See Instructions, Take 2 tablets by mouth the first day then 1 tablet by mouth days 2-5., X 5 day, #6 tab, 0 Refill(s), Pharmacy: [facility] #[id number] Start Date: 05/29/19 Stop Date: 06/03/19 Status: Ordered Results No data available for [...] Smoking Cessation Counseling No entered on: 05/29/19 Assessment and Plan No data available for this section
--- OUTSIDE RECORDS SUMMARY | 2019-07-02 21:19 | XMS REPORT | Summary of Care ---
:1965 Author Organization [facility] Primary Care [facility] Address [address], [address] [place] [address]- Encounter HQ Mason_tess(FIN) [id number] Date(s): 01/24/19 - 01/25/19 [facility] Care [facility] [address] [place] [address] [address] [place], [place] [address]- [phone] Vital Signs No data available for this [...] Severity Status Phenergan Active Prevacid Active Medications Blood Glucose Test Strips 1 box, MISC, BID-Before Meals, # 3 box, 6 Refill(s), Pharmacy: [id number] Start Date: 01/24/19 Status: Ordered Results No data available for [...]
--- OUTSIDE RECORDS SUMMARY | 2019-07-02 21:19 | XMS REPORT | Summary of Care ---
:1965 Author Organization [facility] Primary Care [facility] Address [address], [address] [place] [address]- Care Team Providers Name Role Phone Ilene Arcos Primary Care Physician Encounter HQ Karinetess(BETH) [id number] Date(s): 11/28/18 - 11/28/18 [facility] Primary Care [address] [place], [place] [address]- [phone] Discharge Disposition: Home or Self Care Attending [...] Active Type 2 diabetes mellitus, Resolved controlled(Confirmed) Type 2 diabetes mellitus, Active uncontrolled(Confirmed) Uncontrolled type 2 diabetes with Active renal manifestation(Confirmed) Allergies, Adverse Reactions, Alerts Substance Reaction Severity Status Phenergan Active Prevacid Active Medications atorvastatin 40 mg oral tablet 40 mg=1 tab, PO, Bedtime, # 90 tab, 1 Refill(s), Pharmacy: [facility] [id number] Start Date: 11/28/18 Stop Date: 01/14/19 Status: DiscontinuedBromfed DM oral syrup 5 mL, PO, TID, PRN cough, X 8 day, # 120 mL, 1 Refill(s), Pharmacy: [facility] [id number] Start Date: 11/28/18 Stop Date: 12/14/18 Status: CompletedpredniSONE 5 mg oral tablet 5 mg=1 tab, [...] neck Social History Social History Type Response Alcohol Never Exercise Exercise duration: 0. Exercise [...]
--- OUTSIDE RECORDS SUMMARY | 2019-07-02 21:19 | XMS REPORT | Summary of Care ---
:1965 Author Organization [facility] Address Unavailable , Encounter ANGELINA Rubio(BETH) [id number] Date(s): 07/08/18 - 07/08/18 [facility] Attending Physician: Chang Gillespie MD Vital Signs No data available for [...]
--- OUTSIDE RECORDS SUMMARY | 2019-07-02 21:19 | XMS REPORT | Summary of Care ---
:1965 Author Organization [facility] Primary Care [facility] Address [address], [address] [place] [address]- Encounter HQ Roshanntr_tess(FIN) [id number] Date(s): 01/24/19 - 01/25/19 [facility] Care [address] [place], [place] [address]- [phone] Vital Signs No data available for this [...]
--- OUTSIDE RECORDS SUMMARY | 2019-07-02 21:19 | XMS REPORT | Summary of Care ---
:1965 Author Organization [facility] Primary Care [facility] Address [address] [place] [address], [address] [place] [address]- Encounter HQ Roshanntr_tess(FIN) [id number] Date(s): 01/21/19 - 01/22/19 [facility] Care [address] [place], [place] [address]- [phone] Vital Signs No data available for this [...]
--- OUTSIDE RECORDS SUMMARY | 2019-07-02 21:19 | XMS REPORT | Summary of Care ---
:1965 Author Organization [facility] Primary Care [facility] Address [address] [place] [address], [address] [place] [address]- Encounter HQ Nimar_tess(FIN) [id number] Date(s): 01/23/19 - 01/24/19 [facility] Care [address] [place], [place] [address]- [phone] Vital Signs No data available for this [...]
--- OUTSIDE RECORDS SUMMARY | 2019-07-02 21:19 | XMS REPORT | Summary of Care ---
:1965 Author Organization [facility] Gastroenterology [facility] Address [address] [place] [address], [address] [place] [address]- Care Team Providers Name Role Phone Ilene Arcos Primary Care Physician Encounter HQ Nimaplacido(FIN) [phone] Date(s): 06/06/19 - 06/07/19 [facility] Gastroenterology [address], [address] [place] [address] - [phone] Vital Signs No data available for this [...]
--- OUTSIDE RECORDS SUMMARY | 2019-07-02 21:20 | XMS REPORT | Summary of Care ---
:1965 Author Organization [facility] Outpatient Imaging [facility] Address [address] [place] [address]- Care Team Providers Name Role Phone Ilene Arcos Primary Care Physician Encounter HQ Joanne(BETH) [id number] Date(s): 08/12/18 - 08/12/18 [facility] Outpatient Imaging [address] [address]- [phone] Encounter Diagnosis Chronic kidney disease, stage 3 (moderate) (Final) - 08/16/18 Discharge Disposition: Home or Self Care Attending Physician: Ilene rAcos MD Referring Physician: Ilene Arcos MD Vital Signs No data available for [...]
--- OUTSIDE RECORDS SUMMARY | 2019-07-02 21:20 | XMS REPORT | Summary of Care ---
:1965 Author Organization [facility] Primary Care [facility] Address [address] [place] [address], [address] [place] [address]- Encounter HQ Nimar_tess(FIN) [id number] Date(s): 07/15/18 - 07/15/18 [facility] Care [address] [place], [place] [address]- [phone] Discharge Disposition: Home or Self Care Attending Physician: Ilene Arcos MD Vital Signs Most recent to oldest [Reference Range]: 1 Height 154.94 cm (07/15/18 7:07 AM) Temperature Oral [96.4-99.1 DegF] 98.4 DegF (07/15/18 7:07 AM) Blood Pressure [90-140/60-90 mmHg] 145/86 mmHg *HI* (07/15/18 7:07 AM) Peripheral Pulse Rate [60-100 bpm] 81 bpm (07/15/18 7:07 AM) Weight 82.727 kg (07/15/18 7:07 AM) Body Mass Index 34.46 m2 (07/15/18 7:07 AM) Problem List Condition Effective Dates Status [...] Status Phenergan Active Prevacid Active Medications atorvastatin 20 mg oral tablet 20 mg=1 tab, PO, Bedtime, # 90 tab, 1 Refill(s), Pharmacy: [facility] [id number] Start Date: 07/15/18 Stop Date: 10/21/18 Status: CompletedCane 1 ea, MISC, Daily, 4 PRONG CANE, # 1 ea, 0 Refill(s) Start Date: 07/15/18 Stop Date: 01/14/19 Status: DiscontinuedmetFORMIN 500 mg oral tablet 1,000 mg=2 tab, PO, BID, # 360 tab, 1 Refill(s), Pharmacy: [facility] [id number] Start Date: 07/15/18 Stop Date: 10/16/18 Status: Discontinuedpioglitazone 30 mg oral tablet 30 mg=1 tab, PO, Daily, # 90 tab, 1 Refill(s), Pharmacy: [facility] [id number] Start Date: 07/15/18 Stop Date: 10/16/18 Status: Discontinued Results No data available for [...]
--- OUTSIDE RECORDS SUMMARY | 2019-07-02 21:20 | XMS REPORT | Summary of Care ---
:1965 Author Organization [facility] Primary Care [facility] Address [address], [address] [place] [address]- Care Team Providers Name Role Phone Ilene Arcos Primary Care Physician Encounter HQ Nimaplacido(FIN) [phone] Date(s): 02/28/19 - 03/01/19 [facility] Primary Care [address] [place] [address]- [phone] Vital Signs No data available for this [...]
--- OUTSIDE RECORDS SUMMARY | 2019-07-02 21:20 | XMS REPORT | Summary of Care ---
:1965 Author Organization [facility] Primary Care [facility] Address [address] [place] [address], [address] [place] [address]- Care Team Providers Name Role Phone Ilene Arcos Primary Care Physician Encounter HQ Karinetess(FIN) [phone] Date(s): 10/16/18 - 10/16/18 [facility] Primary Care [address] [place] [address]- [phone] Discharge Disposition: Home or Self Care Attending Physician: Ilene Arcos MD Vital Signs Most recent to oldest [Reference Range]: 1 Height 154.94 cm (10/16/18 9:35 AM) Temperature Oral [96.4-99.1 DegF] 98.4 DegF (10/16/18 9:35 AM) Blood Pressure [90-140/60-90 mmHg] 129/85 mmHg (10/16/18 9:35 AM) Peripheral Pulse Rate [60-100 bpm] 112 bpm *HI* (10/16/18 9:35 AM) Weight 81.818 kg (10/16/18 9:35 AM) Body Mass Index 34.08 m2 (10/16/18 9:35 AM) Problem List Condition Effective Dates Status [...] Bedtime, # 90 tab, 1 Refill(s), Pharmacy: [facility] [id number] Start Date: 10/21/18 Stop Date: 11/28/18 Status: DiscontinuedketOROLAC 60 mg, Route: IM, ONCE, Dosing Weight 81.818, kg, Start date: 10/16/18 9:53:00 [employer], Stop date: 10/16/18 9:53:00 [employer] Start Date: 10/16/18 Stop Date: 10/16/18 Status: CompletedLantus Solostar Pen 100 units/mL subcutaneous solution 20 unit, SUB-Q, BID, # 5 pen(s), 3 Refill(s), Pharmacy: [facility] [id number] Start Date: 10/16/18 Stop Date: 01/14/19 Status: Discontinuedlisinopril 5 mg oral tablet 5 mg, PO, Daily, # 90 tab, 1 Refill(s), Pharmacy: [facility] [id number] Start Date: 10/16/18 Stop Date: 01/14/19 Status: DiscontinuedmetFORMIN 500 mg oral tablet 1,000 mg=2 tab, PO, BID, # 360 tab, 1 Refill(s), Pharmacy: [facility] [id number] Start Date: 10/16/18 Stop Date: 01/14/19 Status: Discontinuedpioglitazone 30 mg oral tablet 30 mg=1 tab, PO, Daily, # 90 tab, 1 Refill(s), Pharmacy: [facility] [id number] Start Date: 10/16/18 Stop Date: 01/14/19 Status: Discontinued Results No data available for [...]
--- OUTSIDE RECORDS SUMMARY | 2019-07-02 21:20 | XMS REPORT | Summary of Care ---
:1965 Author Organization [facility] Primary Care [facility] Address [address], [address] [place] [address]- Care Team Providers Name Role Phone Ilene Arcos Primary Care Physician Encounter HQ Nimaplacido(FIN) [phone] Date(s): 02/28/19 - 03/01/19 [facility] Primary Care [address] [place] [address]- [phone] Vital Signs No data available for this [...]
--- OUTSIDE RECORDS SUMMARY | 2019-07-02 21:21 | XMS REPORT | Summary of Care ---
:1965 Author Organization [facility] Primary Care [facility] Address [address], [address] [place] [address]- Encounter HQ Encntr_aliwaqas(FIN) [id number] Date(s): 07/19/18 - 07/20/18 [facility] Care [address] [place], [place] [address]- [phone] Vital Signs No data available for this [...]
--- OUTSIDE RECORDS SUMMARY | 2019-07-02 21:21 | XMS REPORT | Summary of Care ---
:1965 Author Organization [facility] Outpatient Imaging [facility] Address [address] [place] [address] Encounter HQ Encntr_tess(FIN) [id number] Date(s): 02/10/19 - 02/10/19 [facility] Outpatient Imaging [address] [phone] Discharge Disposition: Home or Self Care Attending Physician: Trent Neely MD Referring Physician: Trent Neely MD Vital Signs No data available for [...]
--- OUTSIDE RECORDS SUMMARY | 2019-07-02 21:21 | XMS REPORT | Summary of Care ---
:[address] [facility] Primary Care [facility] Address [address], [address] [place] [address]- Care Team Providers Name Role Phone Ilene Arcos Primary Care Physician Encounter HQ Karinetess(FIN) [id number] Date(s): 08/28/18 - 08/29/18 [facility] Primary Care [address] [place] [address]- [phone] Vital Signs No data available for this [...]
--- OUTSIDE RECORDS SUMMARY | 2019-07-02 21:21 | XMS REPORT | Summary of Care ---
:1965 Author Organization [facility] Primary Care [facility] Address [address], [address] [place] [address]- Care Team Providers Name Role Phone Ilene Arcos Primary Care Physician Encounter HQ Karinetess(BETH) [id number] Date(s): 04/18/19 - 04/18/19 [facility] Primary Care [address] [place] [address]- [phone] Discharge Disposition: Home or Self Care Attending Physician: Ilene Arcos MD Vital Signs Most recent to oldest [Reference Range]: 1 Height 154.94 cm (04/18/19 8:52 AM) Temperature Oral [96.4-99.1 DegF] 97.7 DegF (04/18/19 8:52 AM) Blood Pressure [90-140/60-90 mmHg] 161/83 mmHg *HI* (04/18/19 8:52 AM) Peripheral Pulse Rate [60-100 bpm] 82 bpm (04/18/19 8:52 AM) Weight 87.273 kg (04/18/19 8:52 AM) Body Mass Index 36.35 m2 (04/18/19 8:52 AM) Problem List Condition Effective Dates Status [...] Status Phenergan Active Prevacid Active Medications No Known Medications Results No data available for this section [...]
--- OUTSIDE RECORDS SUMMARY | 2019-07-02 21:21 | XMS REPORT | Summary of Care ---
:1965 Author Organization [facility] Primary Care [facility] Address [address], [address] [place] [address]- Encounter HQ Roshanntr_tess(FIN) [id number] Date(s): 02/06/19 - 02/07/19 [facility] Care [address] [place], [place] [address]- [phone] Vital Signs No data available for this [...]
--- OUTSIDE RECORDS SUMMARY | 2019-07-02 21:21 | XMS REPORT | Summary of Care ---
:1965 Author Organization [facility] Address [address] [place] [address] Care Team Providers Name Role Phone Ilene Arcos Primary Care Physician Encounter HQ Joanne(BETH) [id number] Date(s): 09/27/18 - 09/27/[address] [address]- Attending Physician: Enrique Love DO Admitting Physician: Enrique Love DO Referring Physician: Enrique Love DO Vital Signs No data available for this [...]
[2019-07-02] MEDS ORDERED: ONDANSETRON 4 MG/2 ML VIAL ONE (21:22)
[2019-07-02] MEDS ORDERED: MORPHINE 4 MG/ML SYR ONE (21:22)
--- OUTSIDE RECORDS SUMMARY | 2019-07-02 21:22 | XMS REPORT ---
:1965 Author Organization e[employer] Care Team Providers Name Role Phone Ramirez Neely Provider Role Unavailable Allergies No Known Allergies Problems Problem Type Condition Code Onset Dates Condition Status Assessment Type 2 diabetes mellitus with E11.65 Active hyperglycemia Problem Diabetic peripheral neuropathy E11.42 Active Problem Hypertension I10 Active Problem Depression F32.9 Active Problem Hyperlipidemia E78.5 Active Problem Diabetic retinopathy E11.319 Active Problem [place]'s syndrome E24.9 Active Problem Type 2 diabetes mellitus with E11.65 Active hyperglycemia Problem Rheumatoid arthritis M06.9 Active Medications No Known Medications Results No Known Results Summary Purpose [employer] Submission
--- OUTSIDE RECORDS SUMMARY | 2019-07-02 21:22 | XMS REPORT ---
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 Problem Type 2 diabetes mellitus with E11.65 Active hyperglycemia Problem Rheumatoid arthritis M06.9 Active Assessment Abnormal ankle brachial index R68.89 Active Assessment Depression F32.9 Active Assessment Hyperlipidemia E78.5 Active Assessment Hypertension I10 Active Assessment [place]y's syndrome E24.9 Active Assessment Diabetic peripheral neuropathy E11.42 Active Assessment Rheumatoid arthritis M06.9 Active Assessment Diabetic retinopathy E11.319 Active Medications Medication Code Code Instructions Start End Status Dosage System Date Date gabapentin [facility] 06542551279 400 mg orally 3 Active 1 cap(s) times a day tramadol [facility] 14805948865 50 mg orally 2 Active 1 tab(s) TIMES A DAY Lantus Solostar [facility] 87419270950 100 units/ml Active 15 units Pen subcutaneously daily in PM prednisone [facility] 92089412871 5 mg orally once Active 1 tab(s) a day pioglitazone [facility] 20995131023 30 mg orally once Active 1 tab(s) a day Humalog KwikPen [facility] 56472568979 100 units/mL February 28, Active ldss subcutaneously 2019 ACTID prn BG >200 atorvastatin [facility] 23164452102 10 mg orally once Active 1 tab(s) a day Cymbalta [facility] 10285665150 60 mg orally once Active 1 cap(s) a day Enbrel [facility] 63956668295 25 mg Active as subcutaneously directed once a week methotrexate [facility] 19471650328 25 mg/0.4 mL Active 1ml subcutaneously once a week metformin [facility] 72813721123 500 mg orally 2 Active 2 tabs times a day One Touch Verio [facility] 0 - Active as Gold Test directed Strips lisinopril [facility] 83804730703 5 mg orally once Active 1 tab(s) a day Vital Signs Date/Time: February 28, 2019 BMI 34.02 Index Weight 186 lbs Height 62 in Blood Pressure Diastolic 86 mm Hg Blood Pressure Systolic 131 mm Hg Results Name Result Date Reference Range Unit Abnormality Flag Finger stick glucose ----Blood Sugar FBS [id number] Summary Purpose [employer]ClinicalWorks Submission
--- OUTSIDE RECORDS SUMMARY | 2019-07-02 21:22 | XMS REPORT ---
:1965 Author Organization eClinicalWorks Care Team Providers Name Role Phone Ramirez Neely Provider Role Unavailable Allergies, Adverse Reactions, Alerts Substance Reaction Event Type Phenergan Info Not Available Drug Allergy Problems Problem Type Condition Code Onset Dates Condition Status Problem Type 2 diabetes mellitus with E11.65 Active hyperglycemia Problem Hypertension I10 Active Problem Depression F32.9 Active Problem Chronic kidney disease (CKD) stage N18.3 Active G3a/A1, moderately decreased glomerular filtration rate (GFR) between 45-59 mL/min/1.73 square meter and albuminuria creatinine ratio less than 30 mg/g 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 Problem Abnormal ankle brachial index R68.89 Active Assessment Depression F32.9 Active Assessment Abnormal ankle brachial index R68.89 Active Problem Hypothyroidism E03.9 Active Problem Diabetic peripheral neuropathy E11.42 Active Problem Hyperlipidemia E78.5 Active Problem Anemia associated with chronic D63.1 Active renal failure 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 Assessment Hypertension I10 Active Assessment Chronic kidney disease (CKD) stage N18.3 Active G3a/A1, moderately decreased glomerular filtration rate (GFR) between 45-59 mL/min/1.73 square meter and albuminuria creatinine ratio less than 30 mg/g Assessment Rheumatoid arthritis M06.9 Active Assessment Hyperlipidemia E78.5 Active Assessment Type 2 diabetes mellitus with E11.65 Active hyperglycemia Assessment Anemia associated with chronic D63.1 Active renal failure Assessment Diabetic peripheral neuropathy E11.42 Active Problem Diabetic retinopathy E11.319 Active Assessment Hypothyroidism E03.9 Active Assessment Diabetic retinopathy E11.319 Active Problem Rheumatoid arthritis M06.9 Active Medications Medication Code Code Instructions Start End Status Dosage System Date Date prednisone [facility] 69093139866 5 mg orally once Active 1 tab(s) a day lisinopril [facility] 11080522041 5 mg orally once Active 1 tab(s) a day levothyroxine [facility] 25960259578 50 mcg (0.05 mg) May 29, Active 1 tab(s) orally once a day 2018 Enbrel [facility] 67608297097 25 mg Active as subcutaneously directed once a week metformin [facility] 62171636875 500 mg orally 2 Active 2 tabs times a day tramadol [facility] 65670007873 50 mg orally 2 Active 1 tab(s) TIMES A DAY Humalog KwikPen [facility] 48624844906 100 units/mL Active ldss subcutaneously ACTID prn BG >200 Lantus Solostar [facility] 22944496021 100 units/ml Active 15 units Pen subcutaneously daily in PM methotrexate [facility] 53079269623 25 mg/0.4 mL Active 1ml subcutaneously once a week Cymbalta [facility] 11493336782 60 mg orally once Active 1 cap(s) a day pioglitazone [facility] 68671588080 30 mg orally once Active 1 tab(s) a day One Touch Verio [facility] 0 - Active as Gold Test Strips directed gabapentin [facility] 88125988329 400 mg orally 3 Active 1 cap(s) times a day atorvastatin [facility] 77654067176 10 mg orally once Active 1 tab(s) a day Vital Signs Date/Time: May 29, 2019 BMI 33.47 Index Weight 183 lbs Height 62 in Temperature 97.6 F Blood Pressure Diastolic 76 mm Hg Blood Pressure Systolic 106 mm Hg Results Name Result Date Reference Range Unit Abnormality Flag Finger stick glucose ----Blood Sugar FBS [id number] Summary Purpose [employer]ClinicalWorks Submission
--- OUTSIDE RECORDS SUMMARY | 2019-07-02 21:22 | XMS REPORT ---
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 Problem Type 2 diabetes mellitus with E11.65 Active hyperglycemia Problem Rheumatoid arthritis M06.9 Active Assessment Abnormal ankle brachial index R68.89 Active Assessment Depression F32.9 Active Assessment Hyperlipidemia E78.5 Active Assessment Hypertension I10 Active Assessment [place]'s syndrome E24.9 Active Assessment Diabetic peripheral neuropathy E11.42 Active Assessment Rheumatoid arthritis M06.9 Active Assessment Diabetic retinopathy E11.319 Active Medications Medication Code Code Instructions Start End Status Dosage System Date Date pioglitazone [facility] 20648767190 30 mg orally once Active 1 tab(s) a day tramadol [place] 13813362103 50 mg orally 2 Active 1 tab(s) TIMES A DAY prednisone [facility] 43828846047 5 mg orally once Active 1 tab(s) a day Enbrel ND 33628123578 25 mg Active as subcutaneously directed once a week Lantus Solostar [facility] 21019507581 100 units/ml Active 20 units Pen subcutaneously daily in PM One Touch Verio [facility] - January Active as Gold Test 2018 directed Strips gabapentin ND 58963454688 400 mg orally 3 Active 1 cap(s) times a day methotrexate [facility] 65699972241 25 mg/0.4 mL Active 1ml subcutaneously once a week Cymbalta [facility] 05239800844 60 mg orally once Active 1 cap(s) a day lisinopril [place] 08752392122 5 mg orally once Active 1 tab(s) a day metformin [facility] 71873360221 500 mg orally 2 Active 2 tabs times a day atorvastatin [facility] 35342815458 10 mg orally once Active 1 tab(s) a day Vital Signs Date/Time: January 28, 2019 BMI 34.02 Index Weight 186 lbs Height 62 in Blood Pressure Diastolic 71 mm Hg Blood Pressure Systolic 118 mm Hg Results No Known Results Summary Purpose [employer]ClinicalWorks Submission
--- OUTSIDE RECORDS SUMMARY | 2019-07-02 21:22 | XMS REPORT ---
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
--- OUTSIDE RECORDS SUMMARY | 2019-07-02 21:22 | XMS REPORT ---
:1965 [facility] Address [address] [place] [address] Dr. Thomas [address] [place] [id number] Care Team Providers Name Role Phone Unavailable Unavailable Unavailable Problems This patient has no known problems. Allergies, Adverse Reactions, Alerts This patient has no known allergies or adverse reactions. Medications This patient has no known medications.
--- OUTSIDE RECORDS SUMMARY | 2019-07-02 21:22 | XMS REPORT ---
:1965 Author Organization [employer]ClinicalWorks Care Team Providers Name Role Phone Ramirez Neely Provider Role Unavailable Allergies No Known Allergies Problems Problem Type Condition Code Onset Dates Condition Status Problem Type 2 diabetes mellitus with E11.65 Active hyperglycemia Problem Hypertension I10 Active Problem Depression F32.9 Active Problem Diabetic retinopathy E11.319 Active Problem Rheumatoid arthritis M06.9 Active Problem Chronic kidney disease (CKD) stage N18.3 Active G3a/A1, moderately decreased glomerular filtration rate (GFR) between 45-59 mL/min/1.73 square meter and albuminuria creatinine ratio less than 30 mg/g Problem Abnormal ankle brachial index R68.89 Active Problem Hypothyroidism E03.9 Active Problem Diabetic peripheral neuropathy E11.42 Active Problem Hyperlipidemia E78.5 Active Problem Anemia associated with chronic D63.1 Active renal failure 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
[2019-07-02 22:19] LABS: Basophils % 0.7 % (0-1.3); Hematocrit 34.4 % (36.0-45.0); Lymphocytes % 31.8 % (15.3-44.8); MPV 10.6 fL (7.6-11.3)
[2019-07-02 22:24] LABS: Protime INR 0.91
[2019-07-02 22:33] LABS: Albumin 3.7 g/dL (3.4-5.0); Bilirubin Direct 0.1 mg/dL (0-0.2); Bilirubin Total 0.6 mg/dL (0.2-1.0); Magnesium 2.4 mg/dL (1.8-2.4); Protein, Total 7.9 g/dL (6.4-8.2); Troponin (Emerg Dept Use Only) 0.02 ng/mL (0.0-0.045)
[2019-07-02] MEDS ORDERED: MEPERIDINE HCL 50 MG/ML ONE (23:13)
[2019-07-02] MEDS ORDERED: NA CHLORIDE 0.9% 1,000 ML ONE (23:38)
[2019-07-03 01:07] LABS: Albumin 3.2 g/dL (3.4-5.0); Bilirubin Total 0.4 mg/dL (0.2-1.0); Potassium 4.5 mmol/L (3.5-5.1); Protein, Total 6.4 g/dL (6.4-8.2); Troponin I 0.02 ng/mL (0.0-0.045)
--- NOTE | 2019-07-03 01:18 | ER ---
Nurse's Notes [facility] Name: Lisa Dupree Age: 53 yrs Sex: Female : 1965 Arrival Date: 07/02/2019 Time: 21:11 Bed 4 Private MD: Diagnosis: Chest pain. Chronic renal disease Presentation: 07/02 21:17 Presenting complaint: EMS states: they were toned out for report of pt with chest and bb right sided pain. Transition of care: patient was not received from another setting of care. Onset of symptoms was July 02, 2019. Risk Assessment: Do you want to hurt yourself or someone else? Patient reports no desire to harm self or others. Initial Sepsis Screen: Does the patient meet any 2 criteria? No. Patient's initial sepsis screen is negative. Does the patient have a suspected source of infection? No. Patient's initial sepsis screen is negative. Care prior to arrival: None. 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 - Social history:: Smoking status: Patient/guardian denies using tobacco. - Ebola Screening: : No symptoms or risks identified at this time. Screenin:35 Abuse screen: Denies threats or abuse. Denies injuries from another. Nutritional tl1 screening: No deficits noted. Tuberculosis screening: No symptoms or risk factors identified. Fall Risk IV access (20 points). Assessment: 21:36 General: Appears in no apparent distress. uncomfortable, Behavior is cooperative, tl1 appropriate for age, crying. Pain: Complains of pain in right supraclavicular area, right clavicle, anterior aspect of right upper chest and right breast and right upper quadrant Pain radiates to right arm Pain currently is 10 out of 10 on a pain scale. Quality of pain is described as aching, pressure, sharp, shooting, stabbing, squeezing, Pain began 3 hours ago. Neuro: Level of Consciousness is awake, alert, obeys commands, Oriented to person, place, time, situation. Cardiovascular: Reports chest pain, fatigue, nausea, Capillary refill < 3 seconds Patient's skin is warm and dry. Rhythm is sinus rhythm Chest pain is described as severe, is located in right. Respiratory: Airway is patent Trachea midline Respiratory effort is even, unlabored, Breath sounds are clear bilaterally. GI: Abdomen is non-distended, obese, Bowel sounds present X 4 quads. Abd is soft and non tender X 4 quads. Reports nausea. : No signs and/or symptoms were reported regarding the genitourinary system. EENT: No signs and/or symptoms were reported regarding the EENT system. Musculoskeletal: Reports pain in right arm. 23:21 Reassessment: Patient and/or family updated on plan of care and expected duration. Pain tl1 level reassessed. Patient is alert, oriented x 3, equal unlabored respirations, skin warm/dry/pink. Patient states feeling better. Patient states symptoms have improved. Neuro: Level of Consciousness is awake, alert, obeys commands, Oriented to person, place, time, situation. Cardiovascular: Reports chest pain, Capillary refill < 3 seconds Patient's skin is warm and dry. Rhythm is sinus rhythm Chest pain is described as mild, is located in right. Vital Signs: 21:20 BP 154 / 77; Pulse 92; Resp 16 S; Temp 97.4(O); Pulse Ox 98% on R/A; Weight 82.55 kg bb (R); Height 5 ft. 2 in. (157.48 cm) (R); Pain 10/10; 22:14 BP 141 / 71; Pulse 80; Resp 16; Pulse Ox 98% on R/A; Pain 4/10; tl1 22:46 BP 152 / 73; Pulse 86; Resp 17; Pulse Ox 99% ; rr5 23:21 BP 115 / 55; Pulse 97; Resp 14; Pulse Ox 98% on 2 lpm NC; tl1 23:49 BP 100 / 59; Pulse 90; Resp 15; Pulse Ox 98% on 2 lpm NC; Pain 0/10; tl1 07/03 00:08 BP 111 / 56; Pulse 86; Resp 15; Pulse Ox 98% ; Pain 0/10; tl1 00:50 BP 106 / 55; Pulse 78; Resp 17; Pulse Ox 100% on R/A; Pain 0/10; tl1 01:14 BP 101 / 67; Pulse 83; Resp 17; Temp 97.5(O); Pulse Ox 100% on R/A; Pain 0/10; tl1 07/02 21:20 Body Mass Index 33.29 (82.55 kg, 157.48 cm) bb ED Course: 07/02 21:11 Patient arrived in ED. ds1 21:13 Khurram Valdez MD is Attending Physician. pkl 21:17 Triage completed. bb 21:20 Arm band placed on Patient placed in an exam room, on a stretcher, on cardiac exercise specialist, bb on pulse oximetry. EKG completed in triage. Results shown to MD. Family accompanied patient. 21:20 Patient has correct armband on for positive identification. Placed in gown. Bed in low tl1 position. Call light in reach. Side rails up X 1. Adult w/ patient. classroom monitor on. Pulse ox on. NIBP on. 21:28 XRAY Chest (1 view) In Process Unspecified. EDMS 21:35 Ml Sheridan, SHAWNEE is Primary Nurse. tl1 21:35 No provider procedures requiring assistance completed. Inserted saline lock: 22 gauge tl1 in left wrist, using aseptic technique. Patient maintains SpO2 saturation greater than 95% on room air. 07/03 01:35 IV discontinued, intact, bleeding controlled, No redness/swelling at site. Pressure tl1 dressing applied. Administered Medications: 07/02 21:35 Drug: Zofran 4 mg Route: IVP; Site: left wrist; rr5 22:21 Follow up: Response: No adverse reaction; Marked relief of symptoms; Nausea is decreasedtl1 21:37 Drug: morphine 4 mg {Note: rass 0.} Route: IVP; Site: left wrist; rr5 22:21 Follow up: Response: No adverse reaction; Marked relief of symptoms; Pain is decreased; tl1 RASS: Alert and Calm (0) 23:15 Drug: Demerol 50 mg {Note: crying, irritable RASS + 1.} Route: IVP; Infused Over: 2 tl1 mins; Site: left wrist; 23:41 Follow up: Response: No adverse reaction; Marked relief of symptoms; Pain is decreased; tl1 RASS: Drowsy (-1) 23:41 Drug: NS 0.9% 1000 ml Route: IV; Rate: 1 bolus; Site: left wrist; tl1 07/03 00:35 Follow up: IV Status: Completed infusion; IV Intake: 1000ml tl1 Intake: 00:35 IV: 1000ml; Total: 1000ml. tl1 Outcome: 01:16 Discharge ordered by . pkprosper 01:34 Discharged to home via wheelchair, with family. tl1 01:34 Condition: stable 01:34 Discharge instructions given to patient, family, Instructed on discharge instructions, follow up and referral plans. Demonstrated understanding of instructions, follow-up care. 01:35 Patient left the ED. tl1 Signatures: Dispatcher [employer] EDKhurram Valdivia MD MD pkAlina Rosario ds1 Kim Brown RN RN bb Ml Sheridan RN RN tl1 Butch Dennis, RN RN rr5
--- NOTE | 2019-07-03 01:18 | EDPHYS ---
Physician Documentation [facility] Name: Lisa Dupree Age: 53 yrs Sex: Female : 1965 Arrival Date: 07/02/2019 Time: 21:11 Bed 4 Private MD: ED Physician Khurram Valdez HPI: 07/02 21:19 This 53 yrs old Female presents to ER via EMS with complaints of Chest Pain. pkl 21:19 The patient or guardian reports chest pain that is located primarily in the right side pkl of chest. Onset: just prior to arrival. The pain does not radiate. Associated signs and symptoms: Pertinent positives: abdominal pain. The chest pain is described as dull. 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 - Social history:: Smoking status: Patient/guardian denies using tobacco. - Ebola Screening: : No symptoms or risks identified at this time. ROS: 21:22 Eyes: Negative for injury, pain, redness, and discharge, ENT: Negative for injury, pkl pain, and discharge, Neck: Negative for injury, pain, and swelling. 21:22 Cardiovascular: Positive for chest pain, of the right side chest. 21:22 Respiratory: Negative for cough, shortness of breath. 21:22 Abdomen/GI: Positive for abdominal pain, of the right upper quadrant. 21:22 Back: Negative for acute changes. 21:22 : Negative for urinary symptoms. 21:22 MS/extremity: Negative for acute changes. 21:22 Skin: Negative for rash. 21:22 Neuro: Negative for altered mental status. Exam: 21:22 Head/Face: Normocephalic, atraumatic. Eyes: Pupils equal round and reactive to light, pkl extra-ocular motions intact. Lids and lashes normal. Conjunctiva and sclera are non-icteric and not injected. Cornea within normal limits. Periorbital areas with no swelling, redness, or edema. ENT: Nares patent. No nasal discharge, no septal abnormalities noted. Tympanic membranes are normal and external auditory canals are clear. Oropharynx with no redness, swelling, or masses, exudates, or evidence of obstruction, uvula midline. Mucous membranes moist. Neck: Trachea midline, no thyromegaly or masses palpated, and no cervical lymphadenopathy. Supple, full range of motion without nuchal rigidity, or vertebral point tenderness. No Meningismus. Chest/axilla: Normal chest wall appearance and motion. Nontender with no deformity. No lesions are appreciated. Cardiovascular: Regular rate and rhythm with a normal S1 and S2. No gallops, murmurs, or rubs. Normal PMI, no JVD. No pulse deficits. Respiratory: Lungs have equal breath sounds bilaterally, clear to auscultation and percussion. No rales, rhonchi or wheezes noted. No increased work of breathing, no retractions or nasal flaring. 21:22 Abdomen/GI: Bowel sounds: normal, Palpation: soft, mild abdominal tenderness, in the right upper quadrant. 21:22 Back: Exam negative for acute changes. 21:22 : Exam negative for acute changes. 21:22 Musculoskeletal/extremity: Exam is negative for acute changes. 21:22 Skin: Exam negative for rash. 21:22 Neuro: Orientation: is normal, Mentation: is normal, Cranial nerves: grossly normal, Motor: is normal. Vital Signs: 21:20 BP 154 / 77; Pulse 92; Resp 16 S; Temp 97.4(O); Pulse Ox 98% on R/A; Weight 82.55 kg bb (R); Height 5 ft. 2 in. (157.48 cm) (R); Pain 10/10; 22:14 BP 141 / 71; Pulse 80; Resp 16; Pulse Ox 98% on R/A; Pain 4/10; tl1 22:46 BP 152 / 73; Pulse 86; Resp 17; Pulse Ox 99% ; rr5 23:21 BP 115 / 55; Pulse 97; Resp 14; Pulse Ox 98% on 2 lpm NC; tl1 23:49 BP 100 / 59; Pulse 90; Resp 15; Pulse Ox 98% on 2 lpm NC; Pain 0/10; tl1 07/03 00:08 BP 111 / 56; Pulse 86; Resp 15; Pulse Ox 98% ; Pain 0/10; tl1 00:50 BP 106 / 55; Pulse 78; Resp 17; Pulse Ox 100% on R/A; Pain 0/10; tl1 01:14 BP 101 / 67; Pulse 83; Resp 17; Temp 97.5(O); Pulse Ox 100% on R/A; Pain 0/10; tl1 07/02 21:20 Body Mass Index 33.29 (82.55 kg, 157.48 cm) bb MDM: 07/02 21:13 Patient medically screened. pkl 07/03 01:07 Data reviewed: vital signs, nurses notes, lab test result(s), EKG, radiologic studies, pkl plain films. 01:10 ED course: Patient feeling better. Asymptomatic. Discussed lab. results, EKG and CXR pkl with patient. Advised to follow up with her PCP in 1 to 2 days. Patient understood instructions. 07/02 21:14 Order name: Basic Metabolic Panel; Complete Time: 23:42 pkl 07/02 21:14 Order name: CBC with Diff; Complete Time: 23:42 pkl 07/02 21:14 Order name: LFT's; Complete Time: 23:42 pkl 07/02 21:14 Order name: Magnesium; Complete Time: 23:42 pkl 07/02 21:14 Order name: NT PRO-BNP; Complete Time: 23:42 pkl 07/02 21:14 Order name: PT-INR; Complete Time: 23:42 pkl 07/02 21:14 Order name: Troponin (emerg Dept Use Only); Complete Time: 23:42 pkl 07/02 21:14 Order name: Lipase; Complete Time: 23:42 pkl 07/02 22:10 Order name: D-Dimer; Complete Time: 23:42 EDMS 07/03 00:45 Order name: Comprehensive Metabolic Panel; Complete Time: 01:08 EDMS 07/02 21:14 Order name: XRAY Chest (1 view) pkl 07/02 21:14 Order name: EKG; Complete Time: 21:16 pkl 07/02 21:14 Order name: Cardiac monitoring; Complete Time: 21:21 pkl 07/02 21:14 Order name: EKG - Nurse/Tech; Complete Time: 21:21 pkl 07/02 21:14 Order name: IV Saline Lock; Complete Time: 21:35 pkl 07/02 21:14 Order name: Labs collected and sent; Complete Time: 22:14 pkl 07/02 21:14 Order name: O2 Per Protocol; Complete Time: 21:21 pkl 07/02 21:14 Order name: O2 Sat Monitoring; Complete Time: 21:21 pkl 07/03 00:28 Order name: EKG; Complete Time: 01:06 tl1 07/03 00:45 Order name: Troponin I; Complete Time: 01:08 EDMS Administered Medications: 07/02 21:35 Drug: Zofran 4 mg Route: IVP; Site: left wrist; rr5 22:21 Follow up: Response: No adverse reaction; Marked relief of symptoms; Nausea is decreasedtl1 21:37 Drug: morphine 4 mg {Note: rass 0.} Route: IVP; Site: left wrist; rr5 22:21 Follow up: Response: No adverse reaction; Marked relief of symptoms; Pain is decreased; tl1 RASS: Alert and Calm (0) 23:15 Drug: Demerol 50 mg {Note: crying, irritable RASS + 1.} Route: IVP; Infused Over: 2 tl1 mins; Site: left wrist; 23:41 Follow up: Response: No adverse reaction; Marked relief of symptoms; Pain is decreased; tl1 RASS: Drowsy (-1) 23:41 Drug: NS 0.9% 1000 ml Route: IV; Rate: 1 bolus; Site: left wrist; tl1 07/03 00:35 Follow up: IV Status: Completed infusion; IV Intake: 1000ml tl1 Disposition: 07/03/19 01:16 Discharged to Home. Impression: Chest pain. Chronic renal disease. - Condition is Stable. - Medication Reconciliation Form, Thank You Letter, Antibiotic Education, Prescription Opioid Use form. - Follow up: Private Physician; When: 1 - 2 days; Reason: Re-evaluation by your physician. - Problem is new. - Symptoms are resolved. Signatures: Dispatcher [employer] EDPA Khurram Valdez MD MD pkl Ballard, Brenda, RN RN bb Ml Sheridan RN RN tl1 Butch Dennis RN RN rr5 Corrections: (The following items were deleted from the chart) 07/02 21:25 21:22 HEMOGLOBIN A1C+CHEM A1C.LAB.BRZ ordered. EDMS EDMS 22:10 21:16 D-DIMER+COAG.LAB.BRZ ordered. EDMS EDMS 07/03 01:10 01:05 COMPREHENSIVE METABOLIC PANEL+C.LAB.BRZ ordered. EDMS EDMS 01:10 01:05 TROPONIN (EMERG DEPT USE ONLY)+C.LAB.BRZ ordered. EDMS EDMS 01:35 01:16 07/03/2019 01:16 Discharged to Home. Impression: Chest pain. Chronic renal tl1 disease. Condition is Stable. Forms are Medication Reconciliation Form, Thank You Letter, Antibiotic Education, Prescription Opioid Use. Follow up: Private Physician; When: 1 - 2 days; Reason: Re-evaluation by your physician. Problem is new. Symptoms are resolved. pkl
[2019-07-03 01:49] VITALS: O2SAT 100
[2019-07-03 01:51] VITALS: BP 101/67; TEMP 97.5
--- NOTE | 2019-07-03 07:33 | EKG ---
Test Date: 2019-07-03 Test Time: 00:33:53 City Alderman: VILLA MEASUREMENT RESULTS: Intervals: Rate: 78 TX: 124 QRSD: 74 QT: 378 QTc: 430 [place]: P: 40 TX: 124 QRS: 3 T: 28 INTERPRETIVE STATEMENTS: Normal sinus rhythm Normal ECG Compared to ECG 07/02/2019 21:18:00 Short [place] interval no longer present Electronically Signed On 07-03-19 07:32:31 CDT by Landen Davis
--- NOTE | 2019-07-03 07:33 | EKG ---
Test Date: 2019-07-02 Test Time: 21:18:00 Manager Photography: VILLA MEASUREMENT RESULTS: Intervals: Rate: 86 [place]: 108 QRSD: 64 QT: 354 QTc: 423 [place]: P: 48 WV: 108 QRS: 8 T: 41 INTERPRETIVE STATEMENTS: Sinus rhythm with short [place] Otherwise normal ECG Compared to ECG 08/07/2017 16:15:34 Short [place] interval now present Electronically Signed On 07-03-19 07:32:48 CDT by Landen Davis
--- NOTE | 2019-07-03 08:09 | RAD REPORT ---
EXAM DESCRIPTION: Narinder Single View07/02/2019 9:29 pm CLINICAL HISTORY: Chest pain COMPARISON: 2018 FINDINGS: The lungs appear clear of acute infiltrate. The heart is normal size IMPRESSION: No acute abnormalities displayed
== END 2019-07-03 01:35 | disposition home or self-care (01) ==
LOC: ER 21:10
DX: R07.9 Chest pain, unspecified (principal); N18.9 Chronic kidney disease, unspecified; E11.22 Type 2 diabetes mellitus with diabetic chronic kidney disease; I12.9 Hypertensive chronic kidney disease with stage 1 through stage 4 chronic kidney disease, or unspecified chronic kidney disease; Z79.4 Long term (current) use of insulin; Z88.8 Allergy status to other drugs, medicaments and biological substances
CPT/HCPCS: 96361; 93005 ×2; 85025; 80048; 36415 ×2; 83735; 85610; 85379; 80076; 84484 ×2; 83690; 80053; 83880; 71045; 96375; 96374; 99285; J2175; J7030; J2405

== ENCOUNTER 2022-10-24 07:02 | Day surgery (SDC) | payer OTHER ==
[2022-10-10 14:49] LABS: Absolute Lymphocytes (CBC) 2.3 K/uL (0.7-4.9); Hematocrit 35.6 % (36.0-45.0); Lymphocytes % 32.2 % (15.3-44.8); MCV 88.5 fL (80-100); MPV 9.3 fL (7.6-11.3); RBC Red Blood Cell Count 4.02 M/uL (3.86-4.86)
[2022-10-10 14:51] LABS: Protime INR 0.97
[2022-10-10 15:02] LABS: Potassium 4.2 mmol/L (3.5-5.1)
--- NOTE | 2022-10-12 08:09 | EKG ---
Test Date: 2022-10-10 Test Time: 14:19:16 All Purpose Clerk: AHSAN MEASUREMENT RESULTS: Intervals: Rate: 79 [place]: 140 QRSD: 72 QT: 378 QTc: 433 [place]: P: 70 [place]: 140 QRS: 21 T: 66 INTERPRETIVE STATEMENTS: Normal sinus rhythm Low voltage QRS Borderline ECG Compared to ECG 07/03/2019 00:33:53 Low QRS voltage now present Electronically Signed On 10-12-22 08:02:28 CORE PASTER by William Gudino
[~2022-10-24 07:02] MED LIST: Gentamicin Inj 160 MG in NA CHLORIDE 0.9% 100 ML IV SCH
[2022-10-24] MEDS ORDERED: NA CHLORIDE 0.9% 1,000 ML ONE (07:26)
[2022-10-24] MEDS ORDERED: AMPICILLIN SODIUM 2 GM/VIAL VIAL ONE (07:26)
[2022-10-24] MEDS ORDERED: FENTANYL CITR 100 MCG/2 ML ONE (08:13)
[2022-10-24] MEDS ORDERED: propofoL 200 MG/20 ML VIAL IV ONE (08:13)
[2022-10-24] MEDS ORDERED: MIDAZOLAM HCL 2 MG/2 ML INJ ONE ×2 (08:14→10:42)
[2022-10-24] MEDS ORDERED: ONDANSETRON 4 MG/2 ML VIAL ONE (08:15)
[2022-10-24] MEDS ORDERED: LIDOCAINE 1% MPF 5 ML VIAL ONE (08:16)
[2022-10-24] MEDS ORDERED: EPHEDRINE SULF 50 MG/ML VIAL ONE (08:56)
[2022-10-24] MEDS ORDERED: CEFTRIAXONE 1000 MG/VIAL ONE (09:08)
[2022-10-24] MEDS: HYDROMORPHONE HCL 1 MG/ML INJ ONE ×4 (09:41→10:17)
[2022-10-24] MEDS ORDERED: CODEINE 30MG/APAP 300MG TAB PO PRN (10:03)
[2022-10-24] MEDS ORDERED: PHENAZOPYRIDINE 100MG TAB PO ONE ×2 (10:03→11:38)
[2022-10-24] MEDS ORDERED: KETOROLAC 30 MG/ML INJ ONE (10:08)
[2022-10-24] MEDS ORDERED: CODEINE 30MG/APAP 300MG TAB ONE (11:38)
--- NOTE | 2022-10-24 13:37 | OP ---
Surgeon: RIAN COMBS Preoperative Diagnoses: 1.Multifocal bladder lesions. 2.Lichen sclerosis. Postoperative Diagnoses: 1.Multifocal bladder lesions. 2.Lichen sclerosis. 3.Meatal stenosis. Principal Procedures: 1.Cystoscopy with multiple targeted bladder biopsies. 2.Urethral dilation using sounds. Indication For Procedure: Ms. Dupree is a 57-year-old woman, who presents to Urology Clinic with per sistent dysuria associated with irritative and obstructive lower urinary symptoms. She underwent cys toscopic evaluation revealing several erythematous patches, which my clinical impression was that the y might be Hunner's ulcers, bilaterally and posterolaterally with [id number] trabeculations and incomplete emptying. She also had signs of lichen sclerosis with meatal stenosis at that time. She was counseled on the need for operative evaluation including biopsy of the lesion seen, and she was treated preoperatively for a resistant bacterial UTI. Procedure In Detail: The patient was consented in the preoperative holding area before being transfe rred to the operative suite where general anesthesia was induced. She had been given ampicillin 2 g and gentamicin 2-3 mg/kg IV antimicrobial prophylaxis. She was placed in the lithotomy position, pad ded and secured to the table appropriately. Her genitalia were prepped using Hibiclens and she was d raped in standard fashion. The case was begun by attempting to use a 22-[place] rigid cystoscope, but meatal stenosis prohibited access that way. As a result, dilation using urethral sounds was require d and performed to dilate her from 20-[place]er to 26-[place]er with ease. There was a pop somewhere in th e mid urethral location indicative of some potential urethral stricture disease. After dilating her urethra, I was then able to pass the 22-[place] cystoscope with ease into her bladder and decompress i t of fluid and urine. I then surveyed the bladder, and there were erythematous patches of mucosa pre sent multifocally throughout. The predominance of the patches was in the left posterolateral wall of the bladder, the right bladder neck region laterally, and posteriorly bilaterally and in the region of the dome. As a result, I then proceeded with cystoscopic cold cup biopsies of each of these lesio ns starting with the left posterolateral wall biopsies. Several biopsies were taken from that locati on to ensure adequate tissue sampling and a degree of resection of the erythematous patch seen there. Once this was done, I then moved over to the right bladder neck region where that patch was similar ly biopsied fully and nearly resected after multiple biopsies. I then turned my attention to the pos terior wall of the bladder where I started and biopsied the right posterior erythematous patch seen e xtending to the central portion posteriorly and the left lateral posterior wall of the bladder. Darryl tional lesions were seen within the dome and these were biopsied. All of these were sent for patholo gic analysis as posterior dome bladder biopsies. I then utilized a Bugbee electrode and a cautery se tting of 30 to fulgurate each of the lesions to ensure adequate hemostasis. Once each of the lesions was initially fulgurated, I then decompressed her bladder and reassessed for any bleeding, fulgurati ng any additional bleeding vessels seen. I then decompressed her bladder completely and slowly refil led it to ensure that every spot biopsied was adequately fulgurated, and once this was confirmed and all clot material was removed, I decompressed her bladder completely and took the patient out of lith otomy position. She was then awakened from general anesthesia before being transferred to [facility] and then transferred to the recovery room in good condition. Of note, upon assessment of the [facility] er prior to initiation of biopsies, because there was evidence of chronic cystitis cystica throughout , I recommended an additional 1 g of ceftriaxone be provided since her last urine culture was sensiti ve to ceftriaxone. Complications: None. Discharge Disposition: She will be discharged home and should follow up within the next 1-2 weeks to discuss the results of the pathology. DEZ/JERARDO Voice ID: [id number] Report ID: [id number]
[2022-10-24 14:45] VITALS: BP 108/56; TEMP 97.4; O2SAT 96
== END 2022-10-24 14:44 | disposition home or self-care (01) ==
LOC: OR 07:02
PROVIDERS: ATTEND Urology
PROC: 0TBB8ZX Excision of Bladder, Via Natural or Artificial Opening Endoscopic, Diagnostic (ICD-10-PCS; principal; 2022-10-24 08:30)
DX: N32.9 Bladder disorder, unspecified (principal); N35.92 Unspecified urethral stricture, female; R30.0 Dysuria; E11.9 Type 2 diabetes mellitus without complications; N13.9 Obstructive and reflux uropathy, unspecified; R39.9 Unspecified symptoms and signs involving the genitourinary system
CPT/HCPCS: 93005; 87088; 85025; 87086; 80048; 36415; 85610; 82947; 88305; 87077; 87186; 52204; J2704; J2001; J1580; J2250 ×2; J3010; J1170 ×2; J7030; J2405; J0290